=== PATIENT | female | born 1935 | race Caucasian/White ===

== ENCOUNTER 2017-10-24 08:00 | Outpatient (CLI) | payer MEDICARE, OTHER | END 2017-10-24 08:01 | disposition home or self-care (01) | LOC: BICMAMMO 08:00 | PROVIDERS: ATTEND Family Medicine | DX: Z13.820 Encounter for screening for osteoporosis (principal); M85.88 Other specified disorders of bone density and structure, other site; Z78.0 Asymptomatic menopausal state | CPT/HCPCS: 77080 ==

== ENCOUNTER 2017-11-09 09:17 | Emergency (ER) | payer MEDICARE, OTHER ==
[2017-11-09 10:00] LABS: Bilirubin Negative (Negative); Blood, Urine Negative (Negative); Glucose, Urine (Dipstick) Negative (Negative); Ketone, Urine Negative (Negative); Nitrite Negative (Negative); Protein, Urine (Dipstick) Negative (Neg-Trace); Urobilinogen 0.2 mg/dL (0.2-1.0)
[2017-11-09 10:01] LABS: #Eosinphils 0.1 thou/uL (0.0-0.7); #Lymphocytes 1.2 thou/uL (1.20-3.40); #Monocytes 0.6 thou/uL (0.11-0.59); #Neutrophils 8.9 thou/uL (1.40-6.50); %Basophils 0.2 % (0.0-1.0); %Eosinophils 0.7 % (0.0-10.0); %Lymphocytes 10.8 % (21.0-51.0); %Monocytes 5.7 % (0.0-10.0); Mean Platelet Volume 10.6 fL (7.4-10.4); Red Blood Cell (RBC) Count 4.13 mill/uL (4.20-5.40); White Blood Cell (WBC) Count 10.8 thou/uL (4.8-10.8)
[2017-11-09 10:21] LABS: ALT (SGPT) 22 U/L (8-55); AST (SGOT) 23 U/L (5-34); Alkaline Phosphatase 122 U/L (40-150); Anion Gap 12 mmol/L (10-20); BUN (Urea Nitrogen) 23 mg/dL (9.8-20.1); Bilirubin, Total 0.5 mg/dL (0.2-1.2); Calc. Creatinine Clearance 0 mL/min (70-130); Calcium 9.9 mg/dL (7.8-10.44); Carbon Dioxide 28 mmol/L (23-31); Chloride 103 mmol/L (98-107); Estimated GFR-MDRD 72; Globulin 3.2 g/dL (2.4-3.5)
--- NOTE | 2017-11-09 10:21 | RAD ---
RADIOGRAPH CHEST 1 VIEW: HISTORY: An 81-year-old female with cough. FINDINGS: The thoracic aorta is tortuous and ectatic. There is no evidence of air space density, pneumothorax, or pulmonary edema. The lateral costophrenic angles are sharp. IMPRESSION: 1) No acute pulmonary findings. 2) Ectasia of thoracic aorta. alberta [] POS: [facility]
[2017-11-09 10:25] LABS: Troponin I 0.018 ng/mL (< 0.028)
--- NOTE | 2017-11-09 10:27 | RAD ---
THREE VIEWS LUMBAR SPINE: History: Weakness. Back pain. History of fall. Technique: AP, lateral, and coned down views of the lumbar spine are obtained. FINDINGS: Images demonstrate atherosclerotic calcification of the abdominal aorta. There is severe multilevel d egenerative changes with anterior and posterior osteophytes in the mid and lower lumbar spine. There is mild dextroscoliosis seen. No evidence of acute lumbar spine fracture is seen. No evidence of ante ro or retrolisthesis is seen. No evidence of subluxation seen. IMPRESSION: Multilevel lumbar degenerative changes without evidence of acute lumbar spine pathology. POS: [facility]
--- NOTE | 2017-11-09 10:28 | RAD ---
AP VIEW PELVIS: HISTORY: Weakness, pain. FINDINGS: AP view pelvis was obtained. The pelvis is unremarkable. No evidence of pelvic fracture, subluxatio ns, or bony lesions seen. Lower lumbar disk degenerative changes are seen. IMPRESSION: No evidence of acute pelvic pathology is seen. POS: [facility]
[2017-11-09] MEDS ORDERED: traMADol HCl 50 MG TAB ONE (11:11)
== END 2017-11-09 11:58 | disposition home or self-care (01) ==
LOC: ERS 09:17
DX: M54.5 Low back pain (principal); J40 Bronchitis, not specified as acute or chronic; E78.5 Hyperlipidemia, unspecified; I10 Essential (primary) hypertension; M06.9 Rheumatoid arthritis, unspecified
CPT/HCPCS: 51701; 71010; 72100; 72170; 80053; 81003; 82553; 84484; 85025; 93005; 94640; 96360; A4353; J7620

== ENCOUNTER 2017-11-13 08:55 | Emergency (ER) | payer MEDICARE, OTHER ==
[2017-11-13 11:29] LABS: #Eosinphils 0.1 thou/uL (0.0-0.7); #Lymphocytes 0.8 thou/uL (1.20-3.40); #Monocytes 0.5 thou/uL (0.11-0.59); #Neutrophils 7.5 thou/uL (1.40-6.50); %Basophils 0.2 % (0.0-1.0); %Lymphocytes 9.1 % (21.0-51.0); %Monocytes 5.4 % (0.0-10.0); Hematocrit 37.7 % (36.0-47.0); Red Blood Cell (RBC) Count 3.97 mill/uL (4.20-5.40)
[2017-11-13 11:31] LABS: Bilirubin Negative (Negative); Blood, Urine Negative (Negative); Glucose, Urine (Dipstick) Negative (Negative); Ketone, Urine Negative (Negative); Nitrite Negative (Negative); Protein, Urine (Dipstick) Negative (Neg-Trace); Urobilinogen 0.2 mg/dL (0.2-1.0)
[2017-11-13] MEDS ORDERED: Lorazepam 2 MG/ML VIAL ONE (11:40)
[2017-11-13] MEDS ORDERED: Ondansetron HCl/PF 4 MG/2 ML Vial ONE (11:40)
[2017-11-13] MEDS ORDERED: Morphine 4 MG/ML VIAL ONE (11:40)
[2017-11-13 11:43] LABS: ALT (SGPT) 19 U/L (8-55); AST (SGOT) 20 U/L (5-34); Alkaline Phosphatase 133 U/L (40-150); Anion Gap 14 mmol/L (10-20); BUN (Urea Nitrogen) 15 mg/dL (9.8-20.1); Bilirubin, Total 0.7 mg/dL (0.2-1.2); Calc. Creatinine Clearance 0 mL/min (70-130); Calcium 9.7 mg/dL (7.8-10.44); Carbon Dioxide 25 mmol/L (23-31); Chloride 101 mmol/L (98-107); Estimated GFR-MDRD 68; Globulin 3.3 g/dL (2.4-3.5)
--- NOTE | 2017-11-13 12:22 | CT ---
CT LUMBAR SPINE WITHOUT CONTRAST: Date: 11/13/17 HISTORY: Pain. COMPARISON: Lumbar spine radiographs of 11/09/17. FINDINGS: Visualized lung bases are clear. No hydronephrosis. Extensive vascular calcifications of the aorta without aneurysmal dilatation. No retroperitoneal johnathan opathy. Diverticular disease sigmoid colon. Paraspinal muscles with mild atrophy. There are old right 12th rib head and neck fractures. No acute fracture is appreciated. Levels are as follows: T12-L1: Mild degenerative disc space height loss. Circumferential disc bulge. No significant neural foraminal or spinal canal narrowing. L1-2: Moderate degenerative disc space height loss. Circumferential disc bulge. Spinal canal is not narrowe d. Mild ligamentum flavum hypertrophy. Only mild neural foraminal narrowing. L2-3: Moderate degenerative disc space height loss. Circumferential disc bulge, as well as posterior disc o steophyte complex. Moderate facet arthrosis. Ligamentum flavum hypertrophy. Spinal canal measures 9.0 mm. Hypertrophic osteophytes of the facets contribute to a majority of the moderate bilateral neural foraminal narrowing. There is effacement of the exiting L2 nerve root. L3-4: Posterior disc osteophyte complex. Moderate to severe degenerative disc space height loss. There is a lso hypertrophic degenerative disease of the facets. There is moderate to severe bilateral neural for aminal narrowing with abutment of the exiting and traversing nerve roots. The spinal canal is narrowe d to approximately 5.0 mm. L4-5: Severe posterior degenerative disc space height loss. Ligamentum flavum hypertrophy. Moderate to beti re facet arthropathy. Spinal canal is narrowed to 3.0 mm. There is moderate left and moderate to beti re right-sided neural foraminal narrowing. L5-S1: Posterior disc osteophyte complex and circumferential disc bulge. Moderate facet arthropathy. The the kaley sac is narrowed to approximately 4.0 mm. There is moderate bilateral neural foraminal narrowing w ith abutment of the exiting and traversing nerve roots. IMPRESSION: Multilevel moderate to severe spondylosis changes. There is abutment of the exiting and traversing ne rve roots at multiple levels, as well as spinal canal narrowing, less severe at L3-4 and L4-5 to appr oximately 4.0 mm. POS: [facility]
== END 2017-11-13 13:36 | disposition home or self-care (01) ==
LOC: ERS 08:55
DX: M51.26 Other intervertebral disc displacement, lumbar region (principal); I10 Essential (primary) hypertension; E78.5 Hyperlipidemia, unspecified; M06.9 Rheumatoid arthritis, unspecified
CPT/HCPCS: 72131; 80053; 81003; 83690; 85025; 85652; 86140; 96374; 96375; J2060; J2270; J2405

== ENCOUNTER 2018-01-01 00:15 | Emergency (ER) | payer MEDICARE, OTHER ==
[2018-01-01 01:02] LABS: #Eosinphils 0.1 thou/uL (0.0-0.7); #Monocytes 0.7 thou/uL (0.11-0.59); #Neutrophils 4.8 thou/uL (1.40-6.50); %Basophils 0.4 % (0.0-1.0); %Eosinophils 0.7 % (0.0-10.0); %Lymphocytes 26.3 % (21.0-51.0); %Monocytes 9.4 % (0.0-10.0); %Neutrophils 63.2 % (42.0-75.0); Hemoglobin 12.4 g/dL (12.0-16.0); Mean Corpuscular HGB CONC 32.6 g/dL (32.0-36.0); Mean Corpuscular Hemoglobin 31.4 pg (27.0-31.0); Mean Corpuscular Volume 96.5 fl (81.0-99.0); Mean Platelet Volume 10.1 fL (7.4-10.4); Platelet Count 253 thou/uL (130-400); RBC Distribution Width 14.3 % (11.5-14.5); Red Blood Cell (RBC) Count 3.96 mill/uL (4.20-5.40); White Blood Cell (WBC) Count 7.6 thou/uL (4.8-10.8)
[2018-01-01 01:23] LABS: ALT (SGPT) 70 U/L (8-55); AST (SGOT) 51 U/L (5-34); Albumin 4.2 g/dL (3.4-4.8); Alkaline Phosphatase 148 U/L (40-150); Anion Gap 11 mmol/L (10-20); BUN (Urea Nitrogen) 18 mg/dL (9.8-20.1); Bilirubin, Total 0.3 mg/dL (0.2-1.2); Calc. Creatinine Clearance 0 mL/min (70-130); Calcium 10.1 mg/dL (7.8-10.44); Carbon Dioxide 31 mmol/L (23-31); Chloride 103 mmol/L (98-107); Estimated GFR-MDRD 76; Glucose 108 mg/dL (83-110); Potassium 3.9 mmol/L (3.5-5.1); Protein, Total 7.2 g/dL (6.0-8.3); Sodium 141 mmol/L (136-145)
[2018-01-01 02:00] LABS: Bilirubin Negative (Negative); Blood, Urine Negative (Negative); Clarity CLEAR (Clear); Glucose, Urine (Dipstick) Negative (Negative); Leukocyte Negative (Negative); Nitrite Negative (Negative); Protein, Urine (Dipstick) Negative (Neg-Trace); Specific Gravity, Urine 1.006 (1.002-1.036); Urobilinogen 0.2 mg/dL (0.2-1.0)
--- NOTE | 2018-01-01 07:44 | RAD ---
RADIOGRAPH PELVIS 1 VIEW: Date: 01/01/18 Time: 0140 hours HISTORY: 82-year-old female status post acute pelvic trauma from fall. FINDINGS: No fracture is identified. However, the osteopenia and overlying bowel gas could obscure a fracture, especially of the sacrum. There are high grade degenerative changes in the lower lumbar spine. No hip dislocation. No interval change compared to 11/09/17. IMPRESSION: 1. No fracture identified. 2. Lower lumbar spondylosis. 3. If patient's symptoms do not improve in the next several days, then the most sensitive modality t o identify occult fractures, such as sacral insufficiency fractures, would be a noncontrast MRI. POS: [facility]
--- NOTE | 2018-01-01 08:21 | CT ---
PRELIMINARY REPORT/[facility]/EMERGENCY AFTER HOURS PROCEDURE: EXAM: CT Head Without Intravenous Contrast CLINICAL HISTORY: 82 years old, female; Injury or trauma; Fall; Initial encounter; Abrasion; Head, generalized; Patient HX: 82f presents to the ed for evaluation of a fall backwards from standing and hitting the back of her head. Is not sure why she fell. reports she uses a walker and has an unsteady gait which is her baseline. Reports extensive arthritis. Denies dizziness. TECHNIQUE: Axial computed tomography images of the head/brain without intravenous contrast. COMPARISON: No relevant prior studies available. FINDINGS: Brain: Moderate volume loss No hemorrhage. Mild white matter disease. No edema. Ventricles: Unremarkable. No ventriculomegaly. Bones/joints: Unremarkable. No acute fracture. Soft tissues: Occipital scalp swelling Sinuses: Unremarkable as visualized. No acute sinusitis. Mastoid air cells: Unremarkable as visualized. No mastoid effusion. IMPRESSION: No intracranial hemorrhage.Please see discussion above. Thank you for allowing us to participate in the care of your patient. Dictated and Authenticated by: Ventura Welch MD 01/01/2018 2:14 AM Central Time ([place] & [place]) FINAL REPORT BY DR. LOPES EMERGENCY AFTER HOURS STUDY CT BRAIN NONCONTRAST: HISTORY: 82-year-old female status post acute head trauma from fall. FINDINGS: There is no midline shift or any other mass effect. There is no evidence of acute intracranial hemor rhage, large cortical infarct, obstructive hydrocephalus, or extraaxial fluid collection. The calvar ium is intact. There is diffuse parenchymal volume loss. There are low attenuation areas in the whi te matter. These are nonspecific, but in a patient of this age, they are probably chronic ischemic w jeffy matter changes due to microvascular atherosclerosis. There is a posterior scalp hematoma. This r eport agrees with the preliminary report by [facility]. IMPRESSION: 1. No acute intracranial findings. 2. Involutional changes and chronic ischemic white matter changes. 3. Acute, traumatic posterior scalp hematoma. jn [] POS: OFF
--- NOTE | 2018-01-01 08:23 | CT ---
PRELIMINARY REPORT/[facility]/EMERGENCY AFTER HOURS PROCEDURE: EXAM: CT Cervical Spine Without Intravenous Contrast CLINICAL HISTORY: 82 years old, female; Injury or trauma; Fall; Initial encounter; Abrasion; Patient HX: 82f presents t o the ed for evaluation of a fall backwards from standing and hitting the back of her head. Is not nielsen re why she fell. reports she uses a walker and has an unsteady gait which is her baseline. Re ports extensive arthritis. Denies dizziness. TECHNIQUE: Axial computed tomography images of the cervical spine without intravenous contrast. Coronal and sagittal reformatted images were created and reviewed. COMPARISON: No relevant prior studies available. FINDINGS: Vertebrae: Loss of vertebral body height, presumed degenerative. Anterolisthesis of C3 on C4 is presu med degenerative No acute fracture. Discs/spinal canal/neural foramina: No acute findings. No significant spinal canal stenosis. Multilevel foraminal stenosis observed Soft tissues: Unremarkable. Lung apices: Unremarkable as visualized. IMPRESSION: No definite acute cervical fracture noted Thank you for allowing us to participate in the care of your patient. Dictated and Authenticated by: Ventura Welch MD 01/01/2018 2:13 AM Central Time ([place] & [place]) FINAL REPORT EMERGENCY AFTER HOURS STUDY: CT CERVICAL SPINE NONCONTRAST: HISTORY: An 82-year-old female status post acute cervical trauma from fall. FINDINGS: There are no jumped or perched facets. There is no evidence of acute fracture. The vertebral body h eights are maintained. There is no prevertebral soft tissue swelling. There are degenerative disc c hanges and facet osteoarthrosis, including chronic subluxations. Agree with preliminary report by [facility]. IMPRESSION: 1) Severe cervical spondylosis. 2) No evidence of acute fracture or acute traumatic subluxation. jn [] POS: OFF
== END 2018-01-01 02:50 | disposition home or self-care (01) ==
LOC: ERS 00:15
DX: S00.03XA Contusion of scalp, initial encounter (principal); E78.5 Hyperlipidemia, unspecified; I10 Essential (primary) hypertension; M06.9 Rheumatoid arthritis, unspecified; Z79.82 Long term (current) use of aspirin; Z79.899 Other long term (current) drug therapy; W17.89XA Other fall from one level to another, initial encounter
CPT/HCPCS: 36415; 36416; 70450; 72125; 72170; 80053; 81003; 85025; 93005

== ENCOUNTER 2019-06-28 06:39 | Inpatient (IN) | payer MEDICARE, OTHER ==
[2019-06-28 07:20] LABS: Bilirubin Negative (Negative); Blood, Urine 1+ (Negative); Clarity Turbid (Clear); Glucose, Urine (Dipstick) Normal (Negative); Leukocyte 500 Leu/uL (Negative); Nitrite 2+ (Negative); Protein, Urine (Dipstick) 50 mg/dL (Neg-Trace); Squamous Epithelial 0-3 HPF (0-3); Transitional Epithelial 0-3 HPF (None Seen); Urobilinogen Normal mg/dL (Less than 2); WBC/HPF Greater than 50 HPF (0-3)
[2019-06-28 07:37] LABS: #Lymphocytes 0.4 thou/uL (1.20-3.40); #Monocytes 0.4 thou/uL (0.11-0.59); #Neutrophils 7.8 thou/uL (1.40-6.50); %Basophils 0.1 % (0.0-1.0); %Eosinophils 0.3 % (0.0-10.0); %Lymphocytes 4.8 % (21.0-51.0); %Monocytes 4.6 % (0.0-10.0); %Neutrophils 90.2 % (42.0-75.0); Hemoglobin 11.9 g/dL (12.0-16.0); Mean Corpuscular HGB CONC 33.7 g/dL (32.0-36.0); Mean Corpuscular Hemoglobin 31.6 pg (27.0-31.0); Mean Corpuscular Volume 93.7 fL (78.0-98.0); Mean Platelet Volume 12.4 fL (7.4-10.4); Platelet Count 135 thou/uL (130-400); RBC Distribution Width 12.1 % (11.5-14.5); Red Blood Cell (RBC) Count 3.76 mill/uL (4.20-5.40); White Blood Cell (WBC) Count 8.7 thou/uL (4.8-10.8)
[2019-06-28] MEDS ORDERED: Acetaminophen 500 MG TAB ONE (07:37)
[2019-06-28 07:38] LABS: Bacteria/HPF 3+ HPF (None Seen)
[2019-06-28 07:47] LABS: ALT (SGPT) 9 U/L (8-55); AST (SGOT) 25 U/L (5-34); Albumin 4.1 g/dL (3.4-4.8); Alkaline Phosphatase 80 U/L (40-150); Anion Gap 11 mmol/L (10-20); BUN (Urea Nitrogen) 23 mg/dL (9.8-20.1); Bilirubin, Total 0.6 mg/dL (0.2-1.2); Calc. Creatinine Clearance 0 mL/min (70-130); Calcium 10.3 mg/dL (7.8-10.44); Carbon Dioxide 28 mmol/L (23-31); Chloride 102 mmol/L (98-107); Estimated GFR-MDRD 62; Glucose 109 mg/dL (83-110); Potassium 3.7 mmol/L (3.5-5.1); Protein, Total 7.1 g/dL (6.0-8.3); Sodium 137 mmol/L (136-145)
--- NOTE | 2019-06-28 08:33 | RAD ---
CHEST 1 VIEW: HISTORY: Cough and fever. Chest pain. COMPARISON: 11/09/2017. FINDINGS: Cardiac silhouette is magnified by projection. Pulmonary vasculature is unremarkable. Mediastinum is midline with aortic calcification. No lobar consolidation or evidence of pneumothorax. Cardiac m onitor leads overlie the chest. IMPRESSION: 1. Atherosclerosis. 2. No active cardiopulmonary abnormalities are otherwise demonstrated. POS: [facility]
[2019-06-28] MEDS ORDERED: cefTRIAXone\\ROCEPHIN 1 GM VIAL ONE (09:13)
[2019-06-28] MEDS ORDERED: Gentamicin 80 MG/2 ML VIAL ONE (09:13)
--- NOTE | 2019-06-28 09:28 | CT ---
CT of abdomen and pelvis: 06/28/2019 COMPARISON: None HISTORY: Abdominal pain for 2 weeks TECHNIQUE: Axial CT imaging at 5 mm intervals from lung bases through pubic symphysis without contras t. Coronal reformatted imaging obtained. FINDINGS: Lack of contrast media limits assessment of the viscera, bowel, vascular structures, and fo r lymphadenopathy. Imaged lung bases are unremarkable. No free intraperitoneal air. Liver, spleen, gallbladder, pancreas , adrenal glands, and kidneys are grossly unremarkable. No nephrolithiasis or hydronephrosis is seen on either side. Limited assessment of the bowel demonstrates no evidence for obstruction. Bowel is not well assessed on this exam. There is extensive atherosclerotic calcification of the abdominal aorta and its branches. Review of the osseous structures demonstrates cortical irregularity involving the anterior aspect of the sacrum bilaterally with areas of increased sclerosis suggesting age indeterminant bilateral sacral insufficiency fractures. There are degenerative changes involving bilateral hips. Multilevel degenerative change noted within the lumbar spine with multilevel disc space narrowing, de generative endplate change, osteophyte formation, and facet hypertrophy. IMPRESSION: No nephrolithiasis or evidence of obstructive uropathy. Multiple incidental findings as d escribed above..
[2019-06-28] MEDS ORDERED: Gentamicin Sulfate 260 MG in Sodium Chloride 0.9% 100 ML IVPB SCH (09:45)
[2019-06-28] MEDS ORDERED: Vancomycin HCl 750 MG in Sodium Chloride 0.9% 250 ML 250 ML IVPB SCH (09:45)
[2019-06-28 11:04] VITALS: BMI 21.2
--- NOTE | 2019-06-28 16:12 | HP ---
PRIMARY PHYSICAL TESTING SUPERVISOR: Dr. Ricco Penn. PRIMARY UROLOGIST: Dr. Justin Rodney. CHIEF COMPLAINT: Altered mentation. HISTORY OF PRESENT ILLNESS: The patient is an 83-year-old female, who was brought into the emergency room by her with altered mentation. The altered mentation has been ongoing for more than 24 hours. The mentation got worse today, for which she was brought to the emergency room. She was putting her clothes on wrong per . She also had a fall yesterday without significant injuries. No fever or chills reported. The patient had mild abdominal discomfort around the periumbilical area that has been ongoing for last 2 weeks or so. She also had some spasms prior to urination. She had mild urinary frequency as well. also noticed intermittent chills. There is no recent UTI reported. In the emergency room, her initial vital signs showed temperature 101.6, respirations of 18, pulse rate of 85, blood pressure of 133/54 with O2 saturation of 94% on room air on room air. She received vancomycin, gentamicin, ceftriaxone, Tylenol with IV fluids in the emergency room. PAST MEDICAL HISTORY: 1. Hypertension. 2. Hyperlipidemia. 3. Postherpetic neuralgia. 4. Degenerative joint disease. 5. Cardiac murmur. 6. Chronic low back pain. PAST SURGICAL HISTORY: 1. Skin cancer removal. 2. 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 3. EGD. ALLERGIES: NO KNOWN DRUG ALLERGIES. CURRENT HOME MEDICATIONS: 1. Aspirin 81 mg daily. 2. Calcium with vitamin D daily. 3. Cardizem extended release 240 mg q.h.s. 4. Doxazosin 2 mg q.h.s. 5. Hydrochlorothiazide 12.5 mg daily. 6. MiraLAX 17 g daily. 7. Simvastatin 40 mg q.h.s. 8. Tramadol as needed. 9. Alendronate 70 mg every 7 days. 10. Tylenol as needed. SOCIAL HISTORY: The patient currently lives at home with her . She is independent of activities of daily living. She is full code and makes her own decision with the help of her and the daughter. FAMILY HISTORY: Negative for inheritable disease. Father had MN. Mother had stroke. REVIEW OF SYSTEMS: Limited due to current mentation. PHYSICAL EXAMINATION: VITAL SIGNS: As discussed above. GENERAL: An 83-year-old female with altered mentation. HEENT: Head, atraumatic and normocephalic. Sclerae anicteric. Moist mucous membranes. No oral lesion. NECK: Supple. No JVD appreciated. No carotid bruit. LUNGS: Clear to auscultation bilaterally. No wheezing, rales, or rhonchi. HEART: S1 and S2 present. 3/6 systolic ejection murmur over the aortic area. No rubs or gallops. ABDOMEN: Soft, mild generalized tenderness, mainly over the suprapubic area. No rebound or guarding. No costovertebral angle tenderness. EXTREMITIES: No edema or calf tenderness. NEUROLOGY AND PSYCHIATRY: Limited due to altered mentation. However, the patient is easily arousable and follows commands. She knows that she is in the hospital. She is alert, awake, and oriented x3. She is, however, somnolent. SKIN: Warm and dry. LYMPH NODES: No palpable lymph nodes in the neck. PERIPHERAL VASCULAR: Radial pulses palpable bilaterally. MUSCULOSKELETAL: No joint swelling or tenderness. LABORATORY FINDINGS: CBC showed WBC 8.7, hemoglobin 11.9, hematocrit 35.3, and platelets 135. Chemistry showed sodium 137, potassium 3.7, chloride 102, bicarb 28, BUN 23, creatinine 0.87. Lactic acid 1.2. Urinalysis showed greater than 50 wbc's with 3+ bacteria. IMAGING STUDIES: Chest x-ray by my review was negative for infiltrate. CT scan of the abdomen and pelvis noncontrast by my review was negative for obstructive uropathy. Blood cultures and urine cultures have been sent. IMPRESSION: 1. Toxic metabolic encephalopathy secondary to urinary tract infection. 2. Dehydration/prerenal azotemia. 3. Chronic kidney disease, stage 2. 4. Hypertension. 5. Hyperlipidemia. 6. Chronic systolic murmur, which has been evaluated by Cardiology in the past. 7. Chronic pain syndrome. PLAN: The patient will be monitored on the medical floor. We will continue empiric antibiotics. We will await urine cultures. IV hydration. PT/OT evaluation. We will check postvoid residual. Recheck labs in a.m. Continue doxazosin. Resume hydrochlorothiazide in 1 to 2 days. Resume low-dose aspirin along with tramadol as needed. Continue Cardizem CD. Plan was discussed with the patient and the family at the bedside. They stated understanding. Job ID: [id number]
[2019-06-28] MEDS ORDERED: Calcium Carbonate 500 MG ChewTAB PO PRN (16:42)
[2019-06-28] MEDS ORDERED: Ondansetron PF 4 MG/2 ML Vial IVP PRN (16:42)
[2019-06-28] MEDS ORDERED: Senokot S 8.6-50 MG TAB PO PRN (16:42)
[2019-06-28] MEDS ORDERED: Ondansetron ODT 4 MG TAB PO PRN (16:42)
[2019-06-28] MEDS ORDERED: Acetaminophen 325 MG TAB PO PRN (16:42)
[2019-06-28] MEDS ORDERED: traMADol HCl 50 MG TAB PO PRN (16:44)
[2019-06-28] MEDS: Sodium Chloride 0.9% 1,000 ML IV SCH (16:53)
[2019-06-28] MEDS: Doxazosin 2 MG TAB PO SCH (21:38)
[2019-06-28] MEDS: Atorvastatin Calcium 20 MG TAB PO SCH (21:38)
[2019-06-29 05:54] LABS: #Eosinphils 0.2 thou/uL (0.0-0.7); #Lymphocytes 0.9 thou/uL (1.20-3.40); #Monocytes 0.9 thou/uL (0.11-0.59); %Basophils 0.3 % (0.0-1.0); %Eosinophils 2.3 % (0.0-10.0); %Lymphocytes 13.1 % (21.0-51.0); %Monocytes 12.6 % (0.0-10.0); %Neutrophils 71.7 % (42.0-75.0); Hemoglobin 9.8 g/dL (12.0-16.0); Mean Corpuscular HGB CONC 33.6 g/dL (32.0-36.0); Mean Corpuscular Hemoglobin 31.8 pg (27.0-31.0); Mean Corpuscular Volume 94.8 fL (78.0-98.0); Mean Platelet Volume 12.5 fL (7.4-10.4); Platelet Count 110 thou/uL (130-400); RBC Distribution Width 12.3 % (11.5-14.5); Red Blood Cell (RBC) Count 3.07 mill/uL (4.20-5.40); White Blood Cell (WBC) Count 6.9 thou/uL (4.8-10.8)
[2019-06-29 06:15] LABS: ALT (SGPT) 10 U/L (8-55); AST (SGOT) 21 U/L (5-34); Albumin 3.1 g/dL (3.4-4.8); Alkaline Phosphatase 57 U/L (40-150); Anion Gap 9 mmol/L (10-20); BUN (Urea Nitrogen) 14 mg/dL (9.8-20.1); Bilirubin, Total 0.3 mg/dL (0.2-1.2); Calc. Creatinine Clearance 47 mL/min (70-130); Calcium 8.5 mg/dL (7.8-10.44); Carbon Dioxide 23 mmol/L (23-31); Chloride 107 mmol/L (98-107); Estimated GFR-MDRD 80; Globulin 2.2 g/dL (2.4-3.5); Glucose 96 mg/dL (83-110); Magnesium 1.9 mg/dL (1.6-2.6); Potassium 3.3 mmol/L (3.5-5.1); Protein, Total 5.3 g/dL (6.0-8.3); Sodium 136 mmol/L (136-145)
[2019-06-29] MEDS: Sodium Chloride 0.9% 1,000 ML IV SCH ×2 (07:31→17:51)
[2019-06-29] MEDS: Aspirin 81 mg Enteric Coated Tablet PO SCH (07:57)
[2019-06-29] MEDS: Polyethylene Glycol 3350 17 GM Packet PO SCH (07:57)
[2019-06-29] MEDS ORDERED: K-Phos Neutral 250 MG TAB PO SCH (08:30)
[2019-06-29] MEDS ORDERED: Enoxaparin Sodium 30 MG/0.3 ML SYRINGE SC SCH (09:00)
[2019-06-29] MEDS ORDERED: cefTRIAXone\\ROCEPHIN 1 GM in Sodium Chloride 0.9% 100 ML IVPB SCH (09:00)
--- NOTE | 2019-06-29 11:19 | PDOC.HOSPP ---
- Subjective Encounter Date: 06/29/19 Encounter Time: 10:30 Subjective: Patient seen and examined for Sepsis. Mentation improving. Feels gen weak. Ambulated short distance with walking program. No new complaints. No overnight events - Objective Vital Signs & Weight: Vital Signs (12 hours) Temp Pulse Resp BP Pulse Ox 06/29/19 08:00 96 06/29/19 07:57 62 06/29/19 05:27 97.8 F 62 18 134/62 96 06/29/19 00:00 98.9 F 61 16 120/51 L 96 Weight Weight 112 lb 10.499 oz I&O: 06/28/19 06/29/19 06/30/19 06:59 06:59 06:59 Intake Total 240 Balance 240 Result Diagrams: 06/29/19 05:07 06/29/19 05:07 Additional Labs: Microbiology 06/28/19 07:09 Venous blood - Left Arm Blood Culture - Preliminary Escherichia coli 06/28/19 07:03 Venous blood - Right Arm Blood Culture - Preliminary Presumptive Escherichia coli 06/28/19 06:59 Urine Straight Catheter Urine Culture - Preliminary Presumptive Kleb/Enterobacter Laboratory Tests 06/29/19 05:07 Phosphorus 2.0 L ROS - Review of Systems Respiratory: denies: cough, dry, shortness of breath, hemoptysis, SOB with excertion, pleuritic pain, sputum, wheezing, other Cardiovascular: denies: chest pain, palpitations, orthopnea, paroxysmal noc. dyspnea, edema, light headedness, other Gastrointestinal: denies: nausea, vomitting, abdominal pain, diarrhea, constipation, melena, hematochezia, other - Medication Medications: Active Medications Generic Name Dose Route Start Last Admin Trade Name Freq PRN Reason Stop Dose Admin Aspirin 81 mg 06/29/19 09:00 06/29/19 07:57 Ecotrin PO 81 mg DAILY ANNEMARIE Administration Atorvastatin Calcium 20 mg 06/28/19 21:00 06/28/19 21:38 Lipitor PO 20 mg HS ANNEMARIE Administration Diltiazem HCl 120 mg 06/28/19 21:00 06/29/19 07:57 Cardizem Cd PO 120 mg BID ANNEMARIE Administration Doxazosin Mesylate 1 mg 06/28/19 21:00 06/28/19 21:38 Cardura PO 1 mg HS ANNEMARIE Administration Enoxaparin Sodium 30 mg 06/29/19 09:00 06/29/19 07:57 Lovenox SC 30 mg 0900 ANNEMARIE Administration Sodium Chloride 1,000 mls @ 75 mls/hr 06/28/19 16:45 06/29/19 07:31 Normal Saline 0.9% IV Not Given .[id number] ANNEMARIE Polyethylene Glycol 17 gm 06/29/19 09:00 06/29/19 07:57 Miralax PO 17 gm DAILY ANNEMARIE Administration - Exam NAD Neck: supple, no JVD Heart: RRR, no gallops, no rubs, murmur present Respiratory: CTAB, no wheezes, no rales, no ronchi Gastrointestinal: soft, non-tender, non-distended, no guarding, no rigidity Extremities: no cyanosis, no clubbing, no edema Skin: normal turgor, no lesions, no rashes Neurological: normal sensation to touch, no weakness, no focal deficits, no new deficit Musculoskeletal: normal tone Psychiatric: normal affect, A&O x 3 Hosp A/P - Plan DVT proph w/lovenox IMPRESSION: 1. Toxic metabolic encephalopathy/Sepsis with acute organ dysfunction secondary to urinary tract infection. 2. E coli bacteremia 3. Hypokalemia/Hypophosphatemia 4. Hypertension. 5. Hyperlipidemia. 6. Dehydration/prerenal azotemia/Chronic kidney disease, stage 2. 7. Chronic pain syndrome. 8. Chronic systolic murmur, which has been evaluated by Cardiology in the past. PLAN: Increase Ceftriaxone to 2 gm daily Cont IVF Replace Phosphorus and Potassium Cont PO Cardizem/ASA and other meds as above. Await sensitivities Post void ok
[2019-06-29] MEDS: K-Phos Neutral 250 MG TAB PO SCH ×2 (12:41→17:48)
[2019-06-29] MEDS: Doxazosin 2 MG TAB PO SCH (20:04)
[2019-06-29] MEDS: Atorvastatin Calcium 20 MG TAB PO SCH (20:05)
[2019-06-30] MEDS: Sodium Chloride 0.9% 1,000 ML IV SCH (05:31)
[2019-06-30] MEDS: cefTRIAXone\\ROCEPHIN 2 GM in Sodium Chloride 0.9% 100 ML IVPB SCH (08:03)
[2019-06-30] MEDS: K-Phos Neutral 250 MG TAB PO SCH ×3 (08:04→16:31)
[2019-06-30] MEDS: Aspirin 81 mg Enteric Coated Tablet PO SCH (08:04)
[2019-06-30] MEDS: Enoxaparin Sodium 40 MG/0.4 ML SYRINGE SC SCH (08:05)
[2019-06-30] MEDS: Polyethylene Glycol 3350 17 GM Packet PO SCH (08:05)
--- NOTE | 2019-06-30 13:00 | PDOC.HOSPP ---
- Subjective Encounter Date: 06/30/19 Encounter Time: 12:30 Subjective: Patient seen and examined for Encephalopathy. Feels ok. Brief hallucination last night. No fever/chills. No new complaints. No overnight events - Objective Vital Signs & Weight: Vital Signs (12 hours) Temp Pulse Resp BP Pulse Ox 06/30/19 08:05 94 L 06/30/19 07:47 98.2 F 62 16 149/75 H 94 L Weight Weight 112 lb 10.499 oz I&O: 06/29/19 06/30/19 07/01/19 06:59 06:59 06:59 Intake Total 2100 Balance 2100 Result Diagrams: 06/29/19 05:07 06/29/19 05:07 Additional Labs: Microbiology 06/28/19 07:09 Venous blood - Left Arm Blood Culture - Final Escherichia coli 06/28/19 07:03 Venous blood - Right Arm Blood Culture - Final Escherichia coli 06/28/19 06:59 Urine Straight Catheter Urine Culture - Final Klebsiella pneumoniae ssp pneu Presumptive Escherichia coli ROS - Review of Systems Respiratory: denies: cough, dry, shortness of breath, hemoptysis, SOB with excertion, pleuritic pain, sputum, wheezing, other Cardiovascular: denies: chest pain, palpitations, orthopnea, paroxysmal noc. dyspnea, edema, light headedness, other Gastrointestinal: denies: nausea, vomitting, abdominal pain, diarrhea, constipation, melena, hematochezia, other - Medication Medications: Active Medications Generic Name Dose Route Start Last Admin Trade Name Freq PRN Reason Stop Dose Admin Aspirin 81 mg 06/29/19 09:00 06/30/19 08:04 Ecotrin PO 81 mg DAILY ANNEMARIE Administration Atorvastatin Calcium 20 mg 06/28/19 21:00 06/29/19 20:05 Lipitor PO 20 mg HS ANNEMARIE Administration Diltiazem HCl 120 mg 06/28/19 21:00 06/30/19 08:05 Cardizem Cd PO 120 mg BID ANNEMARIE Administration Doxazosin Mesylate 1 mg 06/28/19 21:00 06/29/19 20:04 Cardura PO 1 mg HS ANNEMARIE Administration Enoxaparin Sodium 40 mg 06/30/19 09:00 06/30/19 08:05 Lovenox SC 40 mg 0900 ANNEMARIE Administration Ceftriaxone Sodium 2 gm/ 100 mls @ 200 mls/hr 06/30/19 09:00 06/30/19 08:03 Sodium Chloride IVPB 100 mls Q24HR ANNEMARIE Administration Phosphorus 500 mg 06/29/19 12:00 06/30/19 11:21 Kphos Neutral PO 500 mg TID-WM ANNEMARIE Administration Polyethylene Glycol 17 gm 06/29/19 09:00 06/30/19 08:05 Miralax PO Not Given DAILY ANNEMARIE - Exam NAD Neck: supple, no JVD Heart: RRR, no gallops, murmur present Respiratory: CTAB, no rales Gastrointestinal: soft, non-tender, normal bowel sounds Extremities: no cyanosis, no edema Psychiatric: normal affect, A&O x 3 Hosp A/P - Plan plan discussed w/ family, DVT proph w/lovenox, DVT proph w/SCDs IMPRESSION: 1. Toxic metabolic encephalopathy/Sepsis with acute organ dysfunction secondary to E coli/Klebsiella urinary tract infection. 2. E coli bacteremia 3. Hypokalemia/Hypophosphatemia 4. Hypertension. 5. Hyperlipidemia. 6. Dehydration/prerenal azotemia/Chronic kidney disease, stage 2. 7. Chronic pain syndrome. 8. Chronic systolic murmur, which has been evaluated by Cardiology in the past. PLAN: Cont Ceftriaxone to 2 gm daily DC IVF Cont other meds as above. Post void ok
--- NOTE | 2019-06-30 14:09 | CON ---
DATE OF CONSULTATION: 06/30/2019 REASON FOR CONSULTATION: Bacteremia. HISTORY OF PRESENT ILLNESS: An 83-year-old with history of hypertension, postherpetic neuralgia, and some bladder issues in the past managed by Dr. Rodney, the family and the patient herself are not very aware of what the diagnosis specifically was and according to the , Dr. Rodney had discussed a particular procedure, but he said that he did not like to do those procedures in older folks according to . The patient reportedly goes to urinate every 2 hours approximately according to round the clock and developed some bladder spasms more recently associated with abdominal discomfort and chills, and was brought to the emergency room, her temperature was 101.6, and she did not have any other symptoms. The other vital signs were not particularly remarkable. She was not hypotensive. There is some tenderness in the periumbilical region. The remainder aspects of the examination were normal in the emergency room. Initial lab data with a white cell count 8.7, hemoglobin 11.9, platelets 135, with 90% neutrophils and chemistry was fairly unremarkable. Urinalysis with greater than 50 wbc's. Now, we have 2 sets of blood culture positive for E. coli with a very broad susceptibility profile and the urine culture with the same E. coli plus Klebsiella pneumoniae with a very broad susceptibility profile. Imaging study was done 2 days ago and it showed no evidence of significant abnormalities. No nephrolithiasis. Some sacral fractures noted. Currently, Ms. Bran is having lunch. She is feeling better. No headaches. No visual symptoms, sore throat, odynophagia, or dysphagia. Quite significant hearing impairment. No chest pain. No cough. No abdominal pain. She feels that her bladder is somewhat full. No joint symptoms. No neurological symptoms. PAST MEDICAL HISTORY: Hypertension, hyperlipidemia, postherpetic neuralgia, DJD, chronic cardiac murmur, low back pain, some bladder issue that has been evaluated by Dr. Rodney, not clear what specific diagnosis is. PAST SURGICAL HISTORY: Skin cancer removal, strabismus correction, and EGD. ALLERGIES: NONE. SOCIAL HISTORY: Former smoker, quit 20 years ago. . Lives in [place]. FAMILY HISTORY: Coronary artery disease. CURRENT MEDICATIONS: 1. Ecotrin. 2. Lipitor. 3. Tums. 4. Ceftriaxone. 5. Cardizem. 6. Cardura. 7. Tramadol. PHYSICAL EXAMINATION: VITAL SIGNS: T-max 100.2, blood pressure 140/70, pulse 62, respirations 16, and O2 saturation 94%. SKIN: No areas of skin breakdown. Peripheral IV access. She is voiding in the toilet. No lymphadenopathy. HEENT: Noncontributory. NECK: Supple. LUNGS: Symmetric. Clear breath sounds. HEART: A loud 3/6 harsh systolic murmur at the aortic area. No S3. Regular rate. ABDOMEN: Soft. Not distended or tender. : Question of bladder distention. MUSCULOSKELETAL: No joint inflammatory activity. EXTREMITIES: Pulses 1+ in dorsalis pedis. Moves all extremities equally. NEUROLOGIC: Cognitive function appears to be intact except for the hearing impairment. LABORATORY DATA: Followup CBC; white cell count 6.9 with decrease in neutrophil percentage to 71%. Chemistries not remarkable. ASSESSMENT: 1. Severe hearing impairment. 2. Chronic bladder dysfunction, likely incontinence, although urinary retention is not ruled out. 3. Invasive urinary tract infection with a very susceptible Escherichia coli. DISCUSSION: There are no structural abnormalities of significance in the CT of abdomen performed and if she has no evidence of retention in the bladder scan, then I would switch transition her to either quinolone or Bactrim, given for about approximately 2 weeks. Consider chronic suppressive therapy with low-dose Bactrim at bedtime single-strength. If there is evidence of urinary retention, then this will have to be addressed, but probably that will not be the case since the patient had already been under the care of Dr. Rodney. Job ID: [id number]
[2019-06-30] MEDS: Atorvastatin Calcium 20 MG TAB PO SCH (20:25)
[2019-06-30] MEDS: Doxazosin 2 MG TAB PO SCH (20:26)
[2019-07-01 05:54] LABS: #Eosinphils 0.2 thou/uL (0.0-0.7); #Lymphocytes 1.6 thou/uL (1.20-3.40); #Monocytes 0.8 thou/uL (0.11-0.59); #Neutrophils 2.7 thou/uL (1.40-6.50); %Basophils 0.3 % (0.0-1.0); %Eosinophils 4.7 % (0.0-10.0); %Monocytes 13.9 % (0.0-10.0); %Neutrophils 51.1 % (42.0-75.0); Hemoglobin 10.5 g/dL (12.0-16.0); Mean Corpuscular HGB CONC 33.1 g/dL (32.0-36.0); Mean Corpuscular Hemoglobin 30.8 pg (27.0-31.0); Mean Corpuscular Volume 93.1 fL (78.0-98.0); Mean Platelet Volume 11.7 fL (7.4-10.4); Platelet Count 152 thou/uL (130-400); RBC Distribution Width 12.1 % (11.5-14.5); Red Blood Cell (RBC) Count 3.41 mill/uL (4.20-5.40); White Blood Cell (WBC) Count 5.4 thou/uL (4.8-10.8)
[2019-07-01 06:10] LABS: Albumin 3.5 g/dL (3.4-4.8); Anion Gap 10 mmol/L (10-20); BUN (Urea Nitrogen) 10 mg/dL (9.8-20.1); BUN/Creatinine Ratio 14.49; Calc. Creatinine Clearance 48 mL/min (70-130); Calcium 9.2 mg/dL (7.8-10.44); Carbon Dioxide 27 mmol/L (23-31); Chloride 106 mmol/L (98-107); Estimated GFR-MDRD 81; Glucose 98 mg/dL (83-110); Magnesium 1.9 mg/dL (1.6-2.6); Phosphorus 3.5 mg/dL (2.3-4.7); Potassium 3.3 mmol/L (3.5-5.1); Sodium 140 mmol/L (136-145)
[2019-07-01] MEDS: K-Phos Neutral 250 MG TAB PO SCH ×3 (08:08→16:20)
[2019-07-01] MEDS: cefTRIAXone\\ROCEPHIN 2 GM in Sodium Chloride 0.9% 100 ML IVPB SCH (08:08)
[2019-07-01] MEDS: Enoxaparin Sodium 40 MG/0.4 ML SYRINGE SC SCH (08:08)
[2019-07-01] MEDS: Aspirin 81 mg Enteric Coated Tablet PO SCH (08:08)
[2019-07-01] MEDS: Polyethylene Glycol 3350 17 GM Packet PO SCH (08:39)
--- NOTE | 2019-07-01 18:30 | PDOC.HOSPP ---
- Subjective Encounter Date: 07/01/19 Encounter Time: 09:20 Subjective: Pt seen for followup re:bacteremia. feels well, ambulating. - Objective Vital Signs & Weight: Vital Signs (12 hours) Temp Pulse Resp BP BP Pulse Ox 07/01/19 11:41 144/61 H 07/01/19 08:16 98 07/01/19 08:07 63 151/64 H 07/01/19 08:06 97.7 F 63 16 151/64 H 97 Weight Weight 112 lb 10.499 oz I&O: 06/30/19 07/01/19 07/02/19 06:59 06:59 06:59 Intake Total 2099 1996 Balance 2099 1996 Result Diagrams: 07/01/19 05:11 07/01/19 05:11 Additional Labs: Labs and MARs reviewed by me ROS - Review of Systems Respiratory: denies: cough, shortness of breath, SOB with excertion, pleuritic pain, wheezing, other Cardiovascular: denies: chest pain, palpitations, orthopnea, paroxysmal noc. dyspnea, edema, light headedness - Medication Medications: Active Medications Generic Name Dose Route Start Last Admin Trade Name Freq PRN Reason Stop Dose Admin Aspirin 81 mg 06/29/19 09:00 07/01/19 08:08 Ecotrin PO 81 mg DAILY ANNEMARIE Administration Atorvastatin Calcium 20 mg 06/28/19 21:00 06/30/19 20:25 Lipitor PO 20 mg HS ANNEMARIE Administration Diltiazem HCl 120 mg 06/28/19 21:00 07/01/19 08:07 Cardizem Cd PO 120 mg BID ANNEMARIE Administration Doxazosin Mesylate 1 mg 06/28/19 21:00 06/30/19 20:26 Cardura PO 1 mg HS ANNEMARIE Administration Enoxaparin Sodium 40 mg 06/30/19 09:00 07/01/19 08:08 Lovenox SC 40 mg 0900 ANNEMARIE Administration Ceftriaxone Sodium 2 gm/ 100 mls @ 200 mls/hr 06/30/19 09:00 07/01/19 08:08 Sodium Chloride IVPB 100 mls Q24HR ANNEMARIE Administration Phosphorus 500 mg 06/29/19 12:00 07/01/19 16:20 Kphos Neutral PO 500 mg TID-WM ANNEMARIE Administration Polyethylene Glycol 17 gm 06/29/19 09:00 07/01/19 08:39 Miralax PO Not Given DAILY ANNEMARIE - Exam NAD, awake alert Eye: anicteric sclera ENT: normocephalic atraumatic, moist mucosa Neck: supple, no thyromegaly Heart: RRR, no rubs Respiratory: no wheezes, no rales Gastrointestinal: soft, non-tender Skin: normal turgor Musculoskeletal: normal tone, normal strength Psychiatric: normal affect, normal behavior Hosp A/P (1) Bacteremia Code(s): R78.81 - BACTEREMIA Status: Acute (2) Hypokalemia Code(s): E87.6 - HYPOKALEMIA Status: Acute (3) Dyslipidemia Code(s): E78.5 - HYPERLIPIDEMIA, UNSPECIFIED Status: Chronic (4) Toxic metabolic encephalopathy Code(s): G92 - TOXIC ENCEPHALOPATHY Status: Resolved - Plan plan discussed w/ family, continue antibiotics, PT/OT, out of bed/ambulate Continue IV ceftriaxone, switch to oral antibiotics at the time of discharge. Continue statin. Replace potassium.
[2019-07-01] MEDS ORDERED: Potassium Chloride 20 MEQ TAB PO SCH (18:45)
[2019-07-01] MEDS: Doxazosin 2 MG TAB PO SCH (20:05)
[2019-07-01] MEDS: Atorvastatin Calcium 20 MG TAB PO SCH (20:06)
[2019-07-02] MEDS: K-Phos Neutral 250 MG TAB PO SCH ×2 (08:35→11:48)
[2019-07-02] MEDS: Aspirin 81 mg Enteric Coated Tablet PO SCH (08:35)
[2019-07-02] MEDS: Enoxaparin Sodium 40 MG/0.4 ML SYRINGE SC SCH (08:36)
[2019-07-02] MEDS: cefTRIAXone\\ROCEPHIN 2 GM in Sodium Chloride 0.9% 100 ML IVPB SCH (08:37)
[2019-07-02] MEDS: Polyethylene Glycol 3350 17 GM Packet PO SCH (08:37)
[2019-07-02] MEDS ORDERED: Ciprofloxacin 500 MG TAB PO SCH (11:00)
[2019-07-02 17:27] VITALS: BP 169/68; TEMP 98.1
--- NOTE | 2019-07-02 21:48 | DIS ---
DATE OF ADMISSION: 06/28/2019 DATE OF DISCHARGE: 07/02/2019 PRIMARY CARE PROVIDER: Ricco Penn MD DISCHARGE DIAGNOSES: 1. Urinary tract infection. 2. Toxic metabolic encephalopathy secondary to urinary tract infection. 3. Dehydration. 4. Escherichia coli bacteremia. CONDITION OF PATIENT ON THE DAY OF DISCHARGE: Stable. I assessed Ms. Bran on the day of discharge. She denies any chest pain or shortness of breath. Vital signs are stable. S1 and S2 are heard, regular. Lungs are clear to auscultation bilaterally. CONSULTATIONS DURING THIS HOSPITALIZATION: Infectious Diseases, Dr. Mena. DISCHARGE MEDICATIONS: In addition to the pre-admission home medications as dictated by Dr. King in his history and physical note dated June 28, 2019, Ms. Bran is being discharged home on ciprofloxacin 500 mg 2 times a day for 14 days. HOSPITAL COURSE: Ms. Bran is a pleasant 83-year-old lady, who was admitted to [facility] on June 28, 2019, for toxic metabolic encephalopathy and urinary tract infection. Please refer to Dr. King's history and physical note dated June 28, 2019, for further details. She was treated with intravenous antibiotics. Urine culture grew Klebsiella pneumoniae that was of intermediate sensitivity to nitrofurantoin, but was otherwise sensitive to other antibiotics. It also grew presumptive escherichia coli. 2/2 blood cultures grew pansensitive escherichia coli. She was seen by Infectious Diseases Service. FOLLOWUP: The patient was advised to follow up with primary care provider in 3 to 5 days time. Her blood pressures were elevated during this hospitalization. She has been advised to resume her home medications and check her blood pressure and heart rate 3 times a day and show the readings to her primary care provider. Many thanks for allowing me to participate in your patient's care. Please feel free to contact me with any questions or concerns. DISCHARGE DESTINATION: Home. TIME SPENT: Total amount of time spent coordinating this discharge: 32 minutes. Job ID: [id number]
== END 2019-07-02 16:52 | disposition home or self-care (01) | DRG 871 ==
LOC: ERS 06:39 → T4-A 10:49
PROVIDERS: ADMIT Internal Medicine; ATTEND Internal Medicine
DX: A41.51 Sepsis due to Escherichia coli [E. coli] (principal); G92 Toxic encephalopathy; N39.0 Urinary tract infection, site not specified; B02.29 Other postherpetic nervous system involvement; E78.5 Hyperlipidemia, unspecified; M19.90 Unspecified osteoarthritis, unspecified site; E86.0 Dehydration; N18.2 Chronic kidney disease, stage 2 (mild); I12.9 Hypertensive chronic kidney disease with stage 1 through stage 4 chronic kidney disease, or unspecified chronic kidney disease; G89.4 Chronic pain syndrome; R65.20 Severe sepsis without septic shock; E87.6 Hypokalemia; E83.39 Other disorders of phosphorus metabolism; M06.9 Rheumatoid arthritis, unspecified; R32 Unspecified urinary incontinence; B96.1 Klebsiella pneumoniae [K. pneumoniae] as the cause of diseases classified elsewhere; R01.1 Cardiac murmur, unspecified; R79.89 Other specified abnormal findings of blood chemistry; H91.90 Unspecified hearing loss, unspecified ear; Z79.899 Other long term (current) drug therapy; Z79.82 Long term (current) use of aspirin
CPT/HCPCS: 36415; 51701; 71045; 74176; 80053; 80069; 81003; 81015; 83605; 83735; 84100; 85025; 87040; 87077; 87086; 87149; 87186; 96361; 96365; A4353; J0696; J1580; J1650; J3370; J3490; J7050

== ENCOUNTER 2019-08-27 11:11 | Outpatient (CLI) | payer MEDICARE, OTHER ==
--- NOTE | 2019-08-27 12:10 | RAD ---
RIGHT SHOULDER 3 VIEWS: Date: 08/27/19 HISTORY: Fall, right shoulder pain. FINDINGS/IMPRESSION: No acute fracture or dislocation is seen in the right shoulder. There is a fracture involving the rig ht 7th rib. POS: OFF
== END 2019-08-27 11:12 | disposition home or self-care (01) ==
LOC: SCSRAD 11:11
PROVIDERS: ATTEND Nurse Practitioner Family
DX: Z04.3 Encounter for examination and observation following other accident (principal); S22.31XA Fracture of one rib, right side, initial encounter for closed fracture; W19.XXXA Unspecified fall, initial encounter

== ENCOUNTER 2019-10-10 12:17 | Inpatient (IN) | payer MEDICARE, OTHER ==
--- NOTE | 2019-10-10 13:32 | RAD ---
PORTABLE CHEST 1 VIEW: Date: 10/10/19 Time: 1307 hours HISTORY: Difficulty breathing. FINDINGS/IMPRESSION: Comparison made with exam of 06/28/19. The heart size is normal. The aorta is tortuous. No lobar consolidation, pneumothoraces, or pleural e ffusions are seen. There are fractures involving the right 6th and 7th ribs. These were not seen on t he previous study of 06/28/19. The 7th rib fracture was noted on the right shoulder x-rays of 9. POS: TPC
[2019-10-10 13:35] LABS: #Eosinphils 0.1 thou/uL (0.0-0.7); #Lymphocytes 0.9 thou/uL (1.20-3.40); #Monocytes 0.7 thou/uL (0.11-0.59); #Neutrophils 7.1 thou/uL (1.40-6.50); %Basophils 0.2 % (0.0-1.0); %Eosinophils 0.6 % (0.0-10.0); %Lymphocytes 10.1 % (21.0-51.0); %Monocytes 8.1 % (0.0-10.0); Hemoglobin 11.4 g/dL (12.0-16.0); Mean Corpuscular HGB CONC 33.2 g/dL (32.0-36.0); Mean Corpuscular Volume 93.5 fL (78.0-98.0); Mean Platelet Volume 11.5 fL (7.4-10.4); Platelet Count 185 thou/uL (130-400); RBC Distribution Width 12.4 % (11.5-14.5); Red Blood Cell (RBC) Count 3.67 mill/uL (4.20-5.40); White Blood Cell (WBC) Count 8.8 thou/uL (4.8-10.8)
[2019-10-10] MEDS ORDERED: Iopamidol-370 76% 500 ML 1 ML ONE (13:42)
[2019-10-10 13:58] LABS: ALT (SGPT) 13 U/L (8-55); AST (SGOT) 23 U/L (5-34); Alkaline Phosphatase 116 U/L (40-110); Anion Gap 12 mmol/L (10-20); BUN (Urea Nitrogen) 27 mg/dL (9.8-20.1); Bilirubin, Total 0.3 mg/dL (0.2-1.2); Calc. Creatinine Clearance 0 mL/min (70-130); Calcium 9.7 mg/dL (7.8-10.44); Carbon Dioxide 27 mmol/L (23-31); Chloride 102 mmol/L (98-107); Estimated GFR-MDRD 57; Globulin 2.8 g/dL (2.4-3.5); Glucose 107 mg/dL (83-110); Lipase 22 U/L (8-78); Potassium 4.2 mmol/L (3.5-5.1); Protein, Total 6.8 g/dL (6.0-8.3); Sodium 137 mmol/L (136-145)
[2019-10-10 15:20] LABS: Bilirubin Negative (Negative); Blood, Urine Moderate (Negative); Glucose, Urine (Dipstick) Negative (Negative); Leukocyte Moderate (Negative); Nitrite Positive (Negative); Protein, Urine (Dipstick) 100 mg/dL (Neg-Trace); Urobilinogen 0.2 mg/dL (Less than 2)
[2019-10-10 15:24] LABS: Clarity Hazy (Clear)
[2019-10-10 15:26] LABS: Bacteria/HPF 4+ HPF (None Seen); RBC/HPF 0-3 HPF (0-3); Squamous Epithelial 0-3 HPF (0-3); WBC/HPF Greater Than 50 HPF (0-3)
--- NOTE | 2019-10-10 15:29 | CT ---
CT PULMONARY ANGIOGRAM WITH IV CONTRAST AND 3D POST PROCESSING: HISTORY: Dyspnea on exertion. FINDINGS: There is good contrast opacification of the pulmonary arterial vasculature without filling defects to suggest pulmonary embolism. There are vascular calcifications without evidence of thoracic aortic an eurysm or dissection. No pleural or pericardial effusions are seen. No pneumothoraces, focal areas of consolidation or lung nodules/masses are noted. There are mild dependent changes in the lung bases. There are degenerative changes in the spine. IMPRESSION: No CT evidence of pulmonary embolism. POS: TPC
[2019-10-10] MEDS ORDERED: cefTRIAXone\\ROCEPHIN 1 GM VIAL ONE (15:39)
[2019-10-10] MEDS ORDERED: Furosemide 20 MG/2 ML VIAL ONE (17:43)
[2019-10-10] MEDS ORDERED: Ondansetron ODT 4 MG TAB SL PRN (19:48)
[2019-10-10] MEDS ORDERED: HYDROcodone/Acetaminophen 5/325 mg Tablet PO PRN ×2 (19:48)
[2019-10-10] MEDS ORDERED: Acetaminophen 325 MG TAB PO PRN (19:48)
[2019-10-10] MEDS ORDERED: Ondansetron PF 4 MG/2 ML Vial IVP PRN (19:48)
[2019-10-10 22:47] VITALS: BMI 21.3
[2019-10-11] MEDS ORDERED: Ondansetron ODT 4 MG TAB PO PRN (02:34)
[2019-10-11] MEDS ORDERED: Acetaminophen 500 MG TAB PO PRN (02:34)
[2019-10-11] MEDS ORDERED: hydrALAZINE 20 MG/ML VIAL SLOW IVP PRN (02:34)
[2019-10-11] MEDS ORDERED: Ondansetron PF 4 MG/2 ML Vial IVP PRN (02:34)
[2019-10-11] MEDS ORDERED: Benzonatate 100 MG CAP PO PRN (02:34)
[2019-10-11 06:26] LABS: Anion Gap 9 mmol/L (10-20); BUN (Urea Nitrogen) 21 mg/dL (9.8-20.1); Calc. Creatinine Clearance 39 mL/min (70-130); Calcium 9.8 mg/dL (7.8-10.44); Carbon Dioxide 32 mmol/L (23-31); Chloride 103 mmol/L (98-107); Estimated GFR-MDRD 65; Glucose 101 mg/dL (83-110); Potassium 3.5 mmol/L (3.5-5.1); Sodium 140 mmol/L (136-145)
[2019-10-11 06:35] LABS: Band 6 % (5-11); Eosinophils 6 % (0-10); Hemoglobin 10.8 g/dL (12.0-16.0); Large Platelets SLIGHT; Lymphocytes 9 % (21-51); MDiff Complete? YES; Mean Corpuscular HGB CONC 32.7 g/dL (32.0-36.0); Mean Corpuscular Hemoglobin 30.4 pg (27.0-31.0); Monocytes 7 % (0-10); Neutrophil 71 % (42-75); Platelet Count 188 thou/uL (130-400); Platelet Morphology Comment Appears Adequate; RBC Distribution Width 12.3 % (11.5-14.5); Red Blood Cell (RBC) Count 3.56 mill/uL (4.20-5.40); White Blood Cell (WBC) Count 6.3 thou/uL (4.8-10.8)
[2019-10-11] MEDS: traMADol HCl 50 MG TAB PO SCH ×4 (07:49→20:32)
[2019-10-11] MEDS: Calcium Carbonate + Vit D 1 TAB PO SCH ×2 (07:49→17:36)
[2019-10-11] MEDS: Doxazosin Mesylate 1 MG TAB PO SCH (07:51)
[2019-10-11] MEDS: Hydrochlorothiazide 25 MG TAB PO SCH (07:51)
[2019-10-11] MEDS: Aspirin 81 mg Enteric Coated Tablet PO SCH (07:51)
[2019-10-11] MEDS: Famotidine 20 MG TAB PO SCH (07:52)
[2019-10-11] MEDS: Furosemide 20 MG/2 ML VIAL SLOW IVP SCH (07:52)
[2019-10-11] MEDS: Polyethylene Glycol 3350 17 GM Packet PO SCH (08:03)
--- NOTE | 2019-10-11 09:05 | HP ---
PRIMARY CARE PROVIDER: Ricco Penn MD. PRIMARY UROLOGIST: Justin Rodney MD CHIEF COMPLAINT: Shortness of breath and general weakness. HISTORY OF PRESENT ILLNESS: This is an 83-year-old female, who presented to [facility] Emergency Department complaining of approximately 48-hour history of increasing shortness of breath with associated general weakness and peripheral edema. The patient's condition worsened with exercise or activity level and relieved by nothing. The patient denied any documented fever, chills, night sweats, or family members with similar symptoms. The patient denied any travel history, recent trauma, injury, or new medication exposure. The patient does have history of recurrent urinary tract infections according to the and was recently admitted to [facility] from 06/28/2019 through 07/02/2019, for Klebsiella and E coli urinary tract infection with bacteremia. The patient was also noted with a recent urinary tract infection with Escherichia coli species on 09/19/2019. In the emergency room, the patient underwent general evaluation, receiving Rocephin 1 g IV piggyback and Lasix 20 mg IV push x1. The patient was transferred to the medical floor for further evaluation. PAST MEDICAL HISTORY: 1. Recurrent urinary tract infections. 2. Hyperlipidemia. 3. Hypertension. 4. Rheumatoid arthritis. 5. Cardiac murmur, suspected aortic stenosis with prior cardiology workup. 6. Postherpetic neuralgia. 7. Degenerative joint disease. 8. Chronic low back pain. PAST SURGICAL HISTORY: 1. Status post skin cancer removal. 2. Status post strabismus correction of the left eye. 3. Status post EGD. CURRENT MEDICATIONS: 1. Alendronate sodium 70 mg p.o. q.7 days. 2. Enteric-coated aspirin 81 mg p.o. daily. 3. Multivitamin 1 tablet p.o. b.i.d. 4. Diltiazem CD 240 mg p.o. at bedtime. 5. Cardura 1 mg p.o. daily. 6. Hydrochlorothiazide 12.5 mg p.o. daily. 7. MiraLAX 17 g p.o. daily. 8. Simvastatin 40 mg p.o. at bedtime. 9. Tramadol 50 mg p.o. q.i.d. p.r.n. ALLERGIES: NO KNOWN DRUG ALLERGIES. FAMILY HISTORY: Father with myocardial infarction and mother with CVA. SOCIAL HISTORY: The patient resides in [place], [place], with her , who accompanies her in the hospital. No current alcohol, tobacco, or illicit drug use. REVIEW OF SYSTEMS: CONSTITUTIONAL: Negative for weight loss or gain, ability to conduct usual activities. SKIN: Negative for rash, itching. EYES: Negative for double vision, pain. ENT/MOUTH: Negative for nose bleeding, neck stiffness, pain, tenderness. CARDIOVASCULAR: Negative for palpitations, dyspnea on exertion, orthopnea. RESPIRATORY: Negative for shortness of breath, wheezing, cough, hemoptysis, fever or night sweats. GASTROINTESTINAL: Negative for poor appetite, abdominal pain, heartburn, nausea, vomiting, constipation, or diarrhea. GENITOURINARY: Negative for urgency, frequency, dysuria, nocturia. MUSCULOSKELETAL: Negative for pain, swelling. NEUROLOGIC/PSYCHIATRIC: Negative for anxiety, depression. ALLERGY/IMMUNOLOGIC: Negative for skin rash, bleeding tendency. Otherwise, negative except as stated per HPI. PHYSICAL EXAMINATION: VITAL SIGNS: On admission, blood pressure 114/60, pulse 57, respiratory rate 16, temperature 97.3 degrees Fahrenheit, and O2 saturation 94% on room air. GENERAL APPEARANCE: This is an 83-year-old female, alert, responsive, in no acute distress. HEENT: Pupils are equal, round, and reactive to light and accommodation. Extraocular muscles are intact. No scleral icterus. No conjunctival injection. Nares patent. OP is clear. Oral mucosa dry. NECK: Supple. No cervical adenopathy. No thyromegaly. No carotid bruits. No JVD appreciated. Cervical spine with full active and passive range of motion. No meningeal signs noted. CHEST: Diminished breath sounds in the bases. CARDIOVASCULAR: S1 and S2 with a 3/6 systolic ejection murmur in the right upper sternal border. Consistent with prior exams. ABDOMEN: Rounded, soft, nontender, and nondistended. Bowel sounds are positive in all 4 quadrants. There is no hepatosplenomegaly. No abdominal bruits. No rebound or guarding appreciated. EXTREMITIES: Warm and dry with fair turgor. Mild edema to bilateral lower extremities. Pulses palpable distally at the dorsalis pedis, posterior tibial, and popliteal arteries bilaterally. Capillary refill less than 2 seconds. NEUROLOGIC: Cranial nerves II through XII are grossly intact. No focal or lateralizing signs appreciated. PERTINENT LABORATORY AND X-RAY FINDINGS: Sodium 137, potassium 4.2, chloride 102, CO2 of 27, BUN 27, creatinine 0.94, estimated GFR 57, glucose 107, and calcium 9.7. Alkaline phosphatase 116. Troponin I negative x1. BNP 109. Lipase 22. CBC showed a white blood cell count of 8.8, hemoglobin 11.4, hematocrit 34.3, and platelet count 185 with 81% neutrophils. D-dimer 1.42. Urinalysis; positive for ketones, blood, nitrites, and moderate leukocyte esterase with 4+ bacteria. Portable chest x-ray dated 10/10/2019, showed no acute cardiopulmonary process. Rib fractures of the right 6th and 7th ribs noted. Not previously seen on study on 06/28/2019. CT angiogram of the chest dated 10/10/2019, showed no evidence for pulmonary embolus. EKG dated 10/10/2019, by my interpretation shows a sinus mechanism with heart rates in the 60s. Normal R-wave progression noted in the precordial leads. Normal axis. No acute ST-T wave changes appreciated. ASSESSMENT AND PLAN: 1. Urinary tract infection. The patient will be admitted to the medical floor. We will continue Rocephin 1 g IV q.24 hours. Await final urine culture results. 2. Acute kidney injury on chronic kidney disease. Mild acute kidney injury when comparing previous estimated GFR trend. Avoid nephrotoxic agents and limit contrast exposure. Serial creatinine monitoring. 3. Normocytic anemia. Suspect secondary to chronic kidney disease. No current evidence to suggest acute gastrointestinal blood loss. Serial CBC monitoring. 4. Hypertension. Resume home antihypertensive regimen and monitor clinical response. 5. Dyspnea. Suspect multifactorial including urinary tract infection. We will continue general supportive management. Oxygen as needed to maintain O2 saturations greater than or equal to 90%. 6. Aortic stenosis. Suspected given distribution of cardiac murmur. Prior workup per Cardiology. No further workup recommended. 7. Prophylaxis. SCDs while in bed. Pepcid 20 mg p.o. b.i.d. PT evaluation for functional assessment. 8. Code status is full. Surrogate medical decision maker is the patient's spouse. Job ID: [id number]
[2019-10-11] MEDS ORDERED: cefTRIAXone\\ROCEPHIN 1 GM in Sodium Chloride 0.9% 100 ML IVPB SCH (15:00)
--- NOTE | 2019-10-11 15:37 | PDOC.HOSPP ---
- Subjective Encounter Date: 10/11/19 Encounter Time: 15:36 Subjective: Ms. Bran was seen today in follow-up of UTI. She does not have any complaints. - Objective Vital Signs & Weight: Vital Signs (12 hours) Temp Pulse Resp BP Pulse Ox 10/11/19 11:52 97.8 F 63 17 132/67 93 L 10/11/19 07:45 97.8 F 63 19 125/55 L 93 L 10/11/19 04:53 98.2 F 73 14 115/64 94 L Weight Weight 109 lb 4.8 oz Result Diagrams: 10/11/19 05:37 10/11/19 05:37 Hospitalist ROS - Medication Medications: Active Medications Generic Name Dose Route Start Last Admin Trade Name Freq PRN Reason Stop Dose Admin Aspirin 81 mg 10/11/19 09:00 10/11/19 07:51 Ecotrin PO 81 mg DAILY ANNEMARIE Administration Calcium/Vitamin D 1 tab 10/11/19 08:00 10/11/19 07:49 Caltrate 600 + Vit D PO 1 tab BID-WM ANNEMARIE Administration Doxazosin Mesylate 1 mg 10/11/19 09:00 10/11/19 07:51 Cardura PO 1 mg DAILY ANNEMARIE Administration Famotidine 20 mg 10/11/19 09:00 10/11/19 07:52 Pepcid PO 20 mg DAILY ANNEMARIE Administration Furosemide 20 mg 10/11/19 09:00 10/11/19 07:52 Lasix SLOW IVP 20 mg DAILY ANNEMARIE Administration Hydrochlorothiazide 12.5 mg 10/11/19 09:00 10/11/19 07:51 Hydrochlorothiazide PO 12.5 mg DAILY ANNEMARIE Administration Ceftriaxone Sodium 1 gm/ 100 mls @ 200 mls/hr 10/11/19 15:00 10/11/19 14:23 Sodium Chloride IVPB 100 mls 1500 ANNEMARIE Administration Polyethylene Glycol 17 gm 10/11/19 09:00 10/11/19 08:03 Miralax PO 17 gm DAILY ANNEMARIE Administration Tramadol HCl 50 mg 10/11/19 09:00 10/11/19 12:24 Ultram PO 50 mg QID ANNEMARIE Administration - Exam Eye: PERRL Respiratory: CTAB, no wheezes, no rales, no ronchi, normal chest expansion Gastrointestinal: soft, non-tender, non-distended, normal bowel sounds, no palpable masses, no hepatomegaly Extremities: no cyanosis, no clubbing, no edema Musculoskeletal: diffuse muscle atrophy Hosp A/P (1) UTI (urinary tract infection) Status: Acute (2) Hypertension Code(s): I10 - ESSENTIAL (PRIMARY) HYPERTENSION Status: Acute (3) DJD (degenerative joint disease) Code(s): M19.90 - UNSPECIFIED OSTEOARTHRITIS, UNSPECIFIED SITE Status: Chronic (4) Rheumatoid arthritis Code(s): M06.9 - RHEUMATOID ARTHRITIS, UNSPECIFIED Status: Chronic - Plan * UTI- urine culture is growing presumptive E. Coli * Continue Rocephin * HTN- blood pressure is stable * DJD- stable
[2019-10-11] MEDS: Atorvastatin Calcium 20 MG TAB PO SCH (20:32)
[2019-10-11] MEDS ORDERED: Simvastatin 40 MG TAB PO SCH (21:00)
[2019-10-12] MEDS: Calcium Carbonate + Vit D 1 TAB PO SCH ×2 (08:12→16:37)
[2019-10-12] MEDS: Famotidine 20 MG TAB PO SCH (08:12)
[2019-10-12] MEDS: Doxazosin Mesylate 1 MG TAB PO SCH (08:12)
[2019-10-12] MEDS: traMADol HCl 50 MG TAB PO SCH ×4 (08:12→20:09)
[2019-10-12] MEDS: Aspirin 81 mg Enteric Coated Tablet PO SCH (08:13)
[2019-10-12] MEDS: Hydrochlorothiazide 25 MG TAB PO SCH (08:13)
[2019-10-12] MEDS: Furosemide 20 MG/2 ML VIAL SLOW IVP SCH (08:14)
[2019-10-12] MEDS: Polyethylene Glycol 3350 17 GM Packet PO SCH (08:14)
--- NOTE | 2019-10-12 19:37 | PDOC.HOSPP ---
- Subjective Encounter Date: 10/12/19 Encounter Time: 18:00 Subjective: Doing better today. Had some dysuria at beginning of urination and then improved. No abdominal pain, nausea or vomiting. She walks but has to hold on to something. Uses a walker at home. Was going to be d/c but spouse uncomfortable driving at night due to macular degeneration - Objective Vital Signs & Weight: Vital Signs (12 hours) Temp Pulse Resp BP Pulse Ox 10/12/19 16:27 97.7 F 60 18 145/55 H 96 10/12/19 12:38 97.6 F 58 L 18 125/56 L 95 Weight Weight 109 lb 4.8 oz I&O: 10/11/19 10/12/19 10/13/19 06:59 06:59 06:59 Intake Total 240 Balance 240 Result Diagrams: 10/11/19 05:37 10/11/19 05:37 Hospitalist ROS - Review of Systems Constitutional: denies: fever, chills - Medication Medications: Active Medications Generic Name Dose Route Start Last Admin Trade Name Elmer PRN Reason Stop Dose Admin Aspirin 81 mg 10/11/19 09:00 10/12/19 08:13 Ecotrin PO 81 mg DAILY ANNEMARIE Administration Atorvastatin Calcium 20 mg 10/11/19 21:00 10/11/19 20:32 Lipitor PO 20 mg HS ANNEMARIE Administration Calcium/Vitamin D 1 tab 10/11/19 08:00 10/12/19 16:37 Caltrate 600 + Vit D PO 1 tab BID-WM ANNEMARIE Administration Cefpodoxime Proxetil 100 mg 10/12/19 09:13 10/12/19 10:29 Vantin PO 100 mg BID ANNEMARIE Administration Diltiazem HCl 240 mg 10/11/19 21:00 10/11/19 20:32 Cardizem Cd PO 240 mg HS ANNEMARIE Administration Doxazosin Mesylate 1 mg 10/11/19 09:00 10/12/19 08:12 Cardura PO 1 mg DAILY ANNEMARIE Administration Famotidine 20 mg 10/11/19 09:00 10/12/19 08:12 Pepcid PO 20 mg DAILY ANNEMARIE Administration Hydrochlorothiazide 12.5 mg 10/11/19 09:00 10/12/19 08:13 Hydrochlorothiazide PO 12.5 mg DAILY ANNEMARIE Administration Polyethylene Glycol 17 gm 10/11/19 09:00 10/12/19 08:14 Miralax PO 17 gm DAILY ANNEMARIE Administration Tramadol HCl 50 mg 10/11/19 09:00 10/12/19 16:37 Ultram PO 50 mg QID ANNEMARIE Administration - Exam General Appearance: NAD, awake alert Eye: PERRL, anicteric sclera ENT: normocephalic atraumatic, no oropharyngeal lesions Neck: supple, symmetric, no JVD Heart: RRR, no murmur, no gallops, no rubs Respiratory: CTAB, no wheezes, no rales, no ronchi Gastrointestinal: soft, non-tender, non-distended, normal bowel sounds Extremities: no cyanosis, no clubbing, no edema Skin: normal turgor, no lesions, no rashes Neurological: cranial nerve grossly intact, normal sensation to touch, no focal deficits, no new deficit Musculoskeletal: normal tone, normal strength Hosp A/P - Plan Chest X ray: negative CTA: no acute PE. Rib fracture 6th and 7th on the right This is 83 year old female who presented with dysuria, found to have UTI E coli UTI - UA showed moderate blood, positive nitrite and leukocyte esterase. - Was on ceftriaxone IV, switch to oral cefpodoxime bid today Rib fracture 6th and 7th - patient had one previously per - no complains of chest pain currently Gait instability - PT consult Macrocytic anemia - Hb 10, B12 and folate normal - check TSH Dispo: d/c in am
[2019-10-12] MEDS: Atorvastatin Calcium 20 MG TAB PO SCH (20:09)
[2019-10-13 06:39] LABS: Hemoglobin 11.1 g/dL (12.0-16.0); Mean Corpuscular HGB CONC 33.1 g/dL (32.0-36.0); Mean Corpuscular Volume 93.6 fL (78.0-98.0); Mean Platelet Volume 11.1 fL (7.4-10.4); Platelet Count 218 thou/uL (130-400); RBC Distribution Width 12.2 % (11.5-14.5); Red Blood Cell (RBC) Count 3.57 mill/uL (4.20-5.40); White Blood Cell (WBC) Count 8.1 thou/uL (4.8-10.8)
[2019-10-13 06:58] LABS: Anion Gap 11 mmol/L (10-20); BUN (Urea Nitrogen) 28 mg/dL (9.8-20.1); Calc. Creatinine Clearance 33 mL/min (70-130); Calcium 10.5 mg/dL (7.8-10.44); Carbon Dioxide 34 mmol/L (23-31); Chloride 97 mmol/L (98-107); Estimated GFR-MDRD 54; Glucose 97 mg/dL (83-110); Sodium 138 mmol/L (136-145)
[2019-10-13] MEDS: Hydrochlorothiazide 25 MG TAB PO SCH (08:15)
[2019-10-13] MEDS: Aspirin 81 mg Enteric Coated Tablet PO SCH (08:16)
[2019-10-13] MEDS: Doxazosin Mesylate 1 MG TAB PO SCH (08:16)
[2019-10-13] MEDS: Polyethylene Glycol 3350 17 GM Packet PO SCH (08:16)
[2019-10-13] MEDS: traMADol HCl 50 MG TAB PO SCH ×4 (08:16→19:57)
[2019-10-13] MEDS: Famotidine 20 MG TAB PO SCH (08:16)
[2019-10-13] MEDS: Calcium Carbonate + Vit D 1 TAB PO SCH ×2 (08:16→17:08)
--- NOTE | 2019-10-13 15:10 | PDOC.HOSPP ---
- Subjective Encounter Date: 10/13/19 Encounter Time: 14:00 Subjective: Patient is feeling well. No abdominal pain, nausea, or vomiting. She ambulated with PT today, felt to need rehab. Daughter wondering why patient was so short of breath initially, explained that chest X ray and CTA normal. Patient does have murmur for years per . PCP was following. She denies chest pain or shortness of breath currently. No chest odalys n - Objective Vital Signs & Weight: Vital Signs (12 hours) Temp Pulse Resp BP Pulse Ox 10/13/19 08:00 98.0 F 67 18 119/64 95 Weight Weight 109 lb 4.8 oz I&O: 10/12/19 10/13/19 10/14/19 06:59 06:59 06:59 Intake Total 240 150 Balance 240 150 Result Diagrams: 10/13/19 06:25 10/13/19 06:25 Hospitalist ROS - Review of Systems Eyes: denies: pain, other Respiratory: denies: cough Cardiovascular: denies: chest pain, light headedness Gastrointestinal: denies: nausea, vomiting - Medication Medications: Active Medications Generic Name Dose Route Start Last Admin Trade Name Freq PRN Reason Stop Dose Admin Aspirin 81 mg 10/11/19 09:00 10/13/19 08:16 Ecotrin PO 81 mg DAILY ANNEMARIE Administration Atorvastatin Calcium 20 mg 10/11/19 21:00 10/12/19 20:09 Lipitor PO 20 mg HS ANNEMARIE Administration Calcium/Vitamin D 1 tab 10/11/19 08:00 10/13/19 08:16 Caltrate 600 + Vit D PO 1 tab BID-WM ANNEMARIE Administration Cefpodoxime Proxetil 100 mg 10/12/19 09:13 10/13/19 08:14 Vantin PO 100 mg BID ANNEMARIE Administration Diltiazem HCl 240 mg 10/11/19 21:00 10/12/19 20:08 Cardizem Cd PO 240 mg HS ANNEMARIE Administration Doxazosin Mesylate 1 mg 10/11/19 09:00 10/13/19 08:16 Cardura PO 1 mg DAILY ANNEMARIE Administration Famotidine 20 mg 10/11/19 09:00 10/13/19 08:16 Pepcid PO 20 mg DAILY ANNEMARIE Administration Hydrochlorothiazide 12.5 mg 10/11/19 09:00 10/13/19 08:15 Hydrochlorothiazide PO 12.5 mg DAILY ANNEMARIE Administration Polyethylene Glycol 17 gm 10/11/19 09:00 10/13/19 08:16 Miralax PO 17 gm DAILY ANNEMARIE Administration Tramadol HCl 50 mg 10/11/19 09:00 10/13/19 13:01 Ultram PO 50 mg QID ANNEMARIE Administration - Exam General Appearance: NAD, awake alert Eye: PERRL, anicteric sclera ENT: normocephalic atraumatic, no oropharyngeal lesions Neck: supple, symmetric, no JVD, no thyromegaly Heart: RRR, no gallops, no rubs Heart - other findings: systolic murmur in second right intercostal space Respiratory: CTAB, no wheezes, no rales, no ronchi Gastrointestinal: soft, non-tender, non-distended Extremities: no cyanosis, no clubbing, no edema Skin: normal turgor, no lesions, no rashes Neurological: cranial nerve grossly intact, normal sensation to touch, no new deficit Hosp A/P - Plan Chest X ray: negative CTA: no acute PE. Rib fracture 6th and 7th on the right This is 83 year old female who presented with dysuria, found to have UTI E coli UTI - UA showed moderate blood, positive nitrite and leukocyte esterase. - Was on ceftriaxone IV, switch to oral cefpodoxime bid today Murmur - obtain ECHO, no previous ones on file Rib fracture 6th and 7th - patient had one previously per - no complains of chest pain currently Gait instability - PT consult, recommeding rehab Macrocytic anemia - Hb 11, B12 and folate normal - TSh normal Dispo: d/c in am
[2019-10-13] MEDS: Atorvastatin Calcium 20 MG TAB PO SCH (19:56)
[2019-10-14] MEDS: Aspirin 81 mg Enteric Coated Tablet PO SCH (08:20)
[2019-10-14] MEDS: Calcium Carbonate + Vit D 1 TAB PO SCH ×2 (08:20→17:16)
[2019-10-14] MEDS: Doxazosin Mesylate 1 MG TAB PO SCH (08:20)
[2019-10-14] MEDS: Famotidine 20 MG TAB PO SCH (08:21)
[2019-10-14] MEDS: Hydrochlorothiazide 25 MG TAB PO SCH (08:22)
[2019-10-14] MEDS: traMADol HCl 50 MG TAB PO SCH ×4 (08:22→19:45)
[2019-10-14] MEDS: Polyethylene Glycol 3350 17 GM Packet PO SCH (09:09)
--- NOTE | 2019-10-14 18:12 | PDOC.HOSPP ---
- Subjective Encounter Date: 10/14/19 Encounter Time: 14:00 Subjective: Patient is doing well. She is incontinent of urine. Per she is urinating frequently. She has a strong urge to go to the bathroom then once she goes she feels relief. She denies chest pain or shortness of breath on exertion. Got approved for rehab today. ECHO was pending - Objective Vital Signs & Weight: Vital Signs (12 hours) Temp Pulse Resp BP Pulse Ox 10/14/19 08:00 96.9 F L 71 16 109/52 L 95 Weight Weight 109 lb 4.8 oz I&O: 10/13/19 10/14/19 10/15/19 06:59 06:59 06:59 Intake Total 150 210 Balance 150 210 Result Diagrams: 10/13/19 06:25 10/13/19 06:25 Hospitalist ROS - Review of Systems Constitutional: denies: fever, chills - Medication Medications: Active Medications Generic Name Dose Route Start Last Admin Trade Name Freq PRN Reason Stop Dose Admin Aspirin 81 mg 10/11/19 09:00 10/14/19 08:20 Ecotrin PO 81 mg DAILY ANNEMARIE Administration Atorvastatin Calcium 20 mg 10/11/19 21:00 10/13/19 19:56 Lipitor PO 20 mg HS ANNEMARIE Administration Calcium/Vitamin D 1 tab 10/11/19 08:00 10/14/19 17:16 Caltrate 600 + Vit D PO 1 tab BID-WM ANNEMARIE Administration Cefpodoxime Proxetil 100 mg 10/12/19 09:13 10/14/19 08:21 Vantin PO 100 mg BID ANNEMARIE Administration Cholecalciferol 1,000 units 10/14/19 09:00 10/14/19 08:21 Vitamin D3 PO 1,000 units DAILY ANNEMARIE Administration Diltiazem HCl 240 mg 10/11/19 21:00 10/13/19 19:57 Cardizem Cd PO 240 mg HS ANNEMARIE Administration Doxazosin Mesylate 1 mg 10/11/19 09:00 10/14/19 08:20 Cardura PO 1 mg DAILY ANNEMARIE Administration Famotidine 20 mg 10/11/19 09:00 10/14/19 08:21 Pepcid PO 20 mg DAILY ANNEMARIE Administration Polyethylene Glycol 17 gm 10/11/19 09:00 10/14/19 09:09 Miralax PO Not Given DAILY ANNEMARIE Tramadol HCl 50 mg 10/11/19 09:00 10/14/19 17:16 Ultram PO 50 mg QID ANNEMARIE Administration - Exam General Appearance: NAD, awake alert Eye: PERRL, anicteric sclera ENT: normocephalic atraumatic, no oropharyngeal lesions Neck: supple, symmetric, no JVD, no thyromegaly, no carotid bruit Heart: RRR Heart - other findings: loud systolic murmur on right second intercostal space Respiratory: CTAB, no wheezes, no rales, no ronchi Gastrointestinal: soft, non-tender, non-distended Extremities: no cyanosis, no clubbing, no edema Skin: normal turgor, no lesions, no rashes Neurological: cranial nerve grossly intact, normal sensation to touch, no focal deficits, no new deficit Hosp A/P - Plan Chest X ray: negative CTA: no acute PE. Rib fracture 6th and 7th on the right This is 83 year old female who presented with dysuria, found to have UTI E coli UTI - UA showed moderate blood, positive nitrite and leukocyte esterase. - Was on ceftriaxone IV, switch to oral cefpodoxime bid today. Currently day 4. Will recheck UA given persistent urgency Urge incontinence - recheck UA - will d/c hydrochlorothiazide due to excessive urination Severe aortic stenosis - noted on ECHO, will obtain cardio consult prior to d/c Rib fracture 6th and 7th - patient had one previously per - no complains of chest pain currently Gait instability - PT consult, recommending rehab Macrocytic anemia - Hb 11, B12 and folate normal - TSh normal Hypercalcemia - resolved. PTH normal, vitamin D low Vitamin D deficiency - started vitamin D supplementation Dispo: d/c in am
[2019-10-14] MEDS: Atorvastatin Calcium 20 MG TAB PO SCH (19:45)
[2019-10-14 23:13] LABS: Bacteria/HPF None Seen HPF (None Seen); Bilirubin Negative (Negative); Blood, Urine Negative (Negative); Clarity Turbid (Clear); Glucose, Urine (Dipstick) Normal (Negative); Leukocyte 75 Leu/uL (Negative); Nitrite Negative (Negative); Protein, Urine (Dipstick) Negative (Neg-Trace); Urobilinogen Normal mg/dL (Less than 2); WBC/HPF 21-50 HPF (0-3)
[2019-10-14 23:17] LABS: Urine Culture Reflex No No
[2019-10-15] MEDS: Aspirin 81 mg Enteric Coated Tablet PO SCH (08:04)
[2019-10-15] MEDS: Famotidine 20 MG TAB PO SCH (08:04)
[2019-10-15] MEDS: Polyethylene Glycol 3350 17 GM Packet PO SCH (08:05)
[2019-10-15] MEDS: Doxazosin Mesylate 1 MG TAB PO SCH (08:05)
[2019-10-15] MEDS: Calcium Carbonate + Vit D 1 TAB PO SCH ×2 (08:05→16:20)
[2019-10-15] MEDS: traMADol HCl 50 MG TAB PO SCH ×3 (08:06→16:20)
[2019-10-15 11:42] LABS: Anion Gap 9 mmol/L (10-20); BUN (Urea Nitrogen) 23 mg/dL (9.8-20.1); Calc. Creatinine Clearance 40 mL/min (70-130); Calcium 10.1 mg/dL (7.8-10.44); Carbon Dioxide 34 mmol/L (23-31); Chloride 98 mmol/L (98-107); Estimated GFR-MDRD 67; Glucose 66 mg/dL (83-110); Potassium 3.9 mmol/L (3.5-5.1); Sodium 137 mmol/L (136-145)
--- NOTE | 2019-10-15 16:45 | DIS ---
DATE OF ADMISSION: 10/10/2019 DATE OF DISCHARGE: 10/15/2019 DISCHARGE DIAGNOSES: Escherichia coli urinary tract infection, rib fracture on the 6th and 7th rib, severe aortic stenosis, gait instability, macrocytic anemia, hypercalcemia, vitamin D deficiency, and urge incontinence. CONSULTATIONS: Dr. He Morales with Cardiology. PROCEDURES: None. BRIEF HISTORY OF PRESENT ILLNESS: This is an 83-year-old female, who presented to [facility] ER with increasing shortness of breath and some peripheral edema and weakness. The patient denied any recent history of travel. The patient reports a history of recurrent UTIs with a recent admission to [facility] for Klebsiella and E coli UTI bacteremia. In the ER, the patient received Rocephin IV and Lasix 20 IV empirically. She had a chest x-ray that was normal and a CTA of her chest that showed no PE. She had an EKG, which showed normal sinus rhythm. The patient had troponin done in the ER, which was less than 0.010. Shortness of breath possibly from severe aortic stenosis: The patient had some shortness of breath initially when she came to the ER. She did not have any further episodes of shortness of breath after that. Her chest x-ray and CTA were unremarkable. However, she did have a loud murmur heard on physical exam; therefore, an echocardiogram was done, which showed an EF of 60% to 65% and severe aortic stenosis. The patient's states that the patient has passed out in the past and occasionally will get short of breath on exertion. They used to see Dr. Mcghee; however, had not seen him in a few years. Cardiology was consulted and recommended that the patient be discharged on aspirin. They will need to follow up with Dr. Morales in 4 to 6 weeks for workup of a possible TAVR. For now, she will not be discharged on any diuretics given that her blood pressure is ranging from 109 to 130 without any medications except for doxazosin. E coli UTI: The patient had a UA which showed moderate blood, positive nitrite, and greater than 50 white blood cells. She was initially given IV ceftriaxone and was switched to cefpodoxime the following day. She has completed 5 days of therapy in the hospital and will need additional 2 days on discharge. She did have a repeat UA and urine culture done on the , which was normal. Of note, the patient does have some urge incontinence. She was not discharged on any medication that she is being actively treated for UTI. Rib fracture on the 6th and 7th rib: The patient had a CT scan of the thorax, which showed a fracture involving the right 6th and 7th ribs. According to the , this is old and they knew about this previously. The patient is on tramadol at home. The patient denied any complaints of chest pain. The patient will resume her bisphosphonate for osteoporosis. Hypercalcemia: The patient did have a calcium elevation of 10.5 on the . This resolved and her calcium was 10.1 on the day of discharge. Her vitamin D level was checked and was low at 16, and her PTH was normal. She was discharged on vitamin D supplementation. Vitamin D deficiency: The patient's vitamin D level was 16.7. She started on 1000 mg p.o. daily. She will need a repeat vitamin D level in a few months. Anemia: The patient had a hemoglobin of 11.1. She did have a TSH, which was normal. Vitamin B12 was 319. Folate was 9.10. The patient can have further workup of this as an outpatient. Gait instability: The patient is noted to be very unsteady while walking. PT was consulted and recommended the patient get rehab. She will be discharged to [facility]. DISCHARGE PHYSICAL EXAMINATION: VITAL SIGNS: Temperature 97.7, heart rate 75, respiratory rate 18, O2 saturation 92% on room air, and blood pressure 138/63. GENERAL: The patient is alert, awake, and oriented x3. CVS: The patient has a loud systolic murmur on the right second intercostal space. LUNGS: Clear to auscultation bilaterally. ABDOMEN: Positive bowel sounds, soft, nontender, and nondistended. EXTREMITIES: No edema. PERTINENT LABORATORY DATA: CBC on 10/13: The patient has hemoglobin of 11.1, hematocrit 33.4. BMP on 10/15: CO2 is mildly elevated at 34, calcium is 10.1. Rest of BMP is unremarkable. Vitamin D level : 16.7. Folate: 9.10. TSH: 2.3134. PTH : 67.5. LFTs: AST is 23, ALT is 13, alkaline phosphatase is 116. Troponin I is less than 0.010. Lipase was 22. PERTINENT IMAGING STUDIES: Chest x-ray on 10/10: Shows an old rib fracture in the right 6th and 7th ribs. There is no lobar consolidation. CTA thorax: Shows no evidence of acute PE. There are no pleural or pericardial effusions. Echocardiogram on 10/14: Shows the EF of 60% to 65%, severe aortic stenosis, mild MR. DISCHARGE CONDITION: Stable. DISPOSITION: The patient will be discharged to [facility]. ACTIVITY: As tolerated. DIET: Heart healthy diet. DISCHARGE MEDICATIONS: New medications: 1. Cefpodoxime 100 mg p.o. q.12 hours for two more days. 2. Vitamin D3 of 1000 units p.o. daily. 3. Aspirin 81 mg daily. Discontinued medications: hydrochlorothiazide. All other home medications were resumed. DISCHARGE INSTRUCTIONS: The patient should follow up with her PCP in a week. She will need follow up with Dr. He Morales in 4 to 6 weeks for workup of severe aortic stenosis and evaluation of TAVR. The patient will need to have her anemia followed up with her PCP as well. Consider starting medication for urge incontinence after finishing completion of her UTI. Job ID: [id number] [facility] CENTERJoey
--- NOTE | 2019-10-15 18:07 | CON ---
DATE OF CONSULTATION: 10/15/2019 REASON FOR CONSULTATION: Aortic stenosis. HISTORY OF PRESENT ILLNESS: Ms. Bran is a very pleasant 83-year-old white female, who comes to the hospital for shortness of breath and weakness. She was admitted and evaluated and diagnosed with urinary tract infection as well as what appeared to be acute kidney injury on chronic kidney disease. An echocardiogram was performed that showed severe aortic stenosis with valve area of 0.8, mean gradient of 40 mmHg, so Cardiology has been consulted for this. On my evaluation, Ms. Bran states that she is short of breath with any exertion at home and she has been slowing down quite a bit in the last few months. She currently denies any chest pain, tightness, or pressure. No syncope or presyncope. PAST MEDICAL HISTORY: 1. Recurrent urinary tract infections. 2. Hyperlipidemia. 3. Hypertension. 4. Rheumatoid arthritis. 5. Post herpetic neuralgia. 6. Degenerative joint disease. 7. Chronic low back pain. SURGICAL HISTORY: 1. Skin cancer removal. 2. Strabismus correction of the left eye. 3. EGD. OUTPATIENT MEDICATIONS: 1. Alendronate. 2. Aspirin 81 mg a day. 3. Multivitamin daily. 4. Diltiazem 240 mg a day. 5. Hydrochlorothiazide 12.5 mg a day. 6. MiraLAX. 7. Simvastatin 40 mg at bedtime. 8. Tramadol 50 mg q.i.d. 9. Cardura 1 mg a day. ALLERGIES: NO KNOWN DRUG ALLERGIES. FAMILY HISTORY: Father with an LA in his 80s. Mother with CVA. SOCIAL HISTORY: No alcohol, tobacco, or drugs. Lives with her in a house here close to the hospital in [place]. REVIEW OF SYSTEMS: A 12-point review of systems was done and was all negative unless stated in the history of present illness. PHYSICAL EXAMINATION: VITAL SIGNS: Temperature 97.7, pulse 59, respiratory rate 16, sat 92% on room air, and blood pressure 138/63. GENERAL: Awake, alert, and oriented x3. No distress. HEENT: Normocephalic and atraumatic. NECK: Supple. LUNGS: Clear. CARDIOVASCULAR: S1 and S2. There is a grade 3/6 systolic murmur at the right upper sternal border, late-peaking, it radiated to the rest of the precordium and the carotids. There is a second holosystolic murmur at the apex. ABDOMEN: Soft. Positive bowel sounds. EXTREMITIES: Trace edema. SKIN: Warm and dry. LABORATORY DATA: Laboratory work was reviewed. White count of 8, hemoglobin of 11, hematocrit of 33, platelet count of 218. Coags reviewed. Chemistries were reviewed. BUN of 23, creatinine 0.81, GFR of 67. UA, positive nitrites. A repeat UA on is negative nitrites, but 21-50 white cells, and no bacteria seen. Echocardiogram was reviewed. ASSESSMENT: 1. Severe aortic stenosis. 2. Recurrent urinary tract infections. 3. Acute on chronic diastolic heart failure during this admission, likely from her aortic stenosis. PLAN: She is certainly a candidate for an aortic valve replacement. Due to her advanced age, she would be a better candidate for a transcutaneous aortic valve. We will try to set this up as an outpatient. She may be discharged home at any point from the cardiac perspective, and we will plan on seeing her back in about a month. Hopefully, her UTI is completely gone and treated. At that point, we will schedule her for heart catheterization. We are going to do left heart catheterization and start the process to get her a transcutaneous aortic valve. Thank you for letting us participate in the care of your patient. We will sign off. Please call with any questions. Job ID: [id number]
[2019-10-15 18:32] VITALS: BP 151/67; TEMP 97.9
== END 2019-10-15 18:56 | DRG 306 ==
LOC: ERS 12:17 → T4-B 22:31
PROVIDERS: ADMIT Internal Medicine; ATTEND Internal Medicine
DX: I35.0 Nonrheumatic aortic (valve) stenosis (principal); I50.33 Acute on chronic diastolic (congestive) heart failure; N39.0 Urinary tract infection, site not specified; B02.29 Other postherpetic nervous system involvement; N17.9 Acute kidney failure, unspecified; I13.0 Hypertensive heart and chronic kidney disease with heart failure and stage 1 through stage 4 chronic kidney disease, or unspecified chronic kidney disease; M80.00XA Age-related osteoporosis with current pathological fracture, unspecified site, initial encounter for fracture; B96.20 Unspecified Escherichia coli [E. coli] as the cause of diseases classified elsewhere; E55.9 Vitamin D deficiency, unspecified; E83.52 Hypercalcemia; R32 Unspecified urinary incontinence; D64.9 Anemia, unspecified; E78.5 Hyperlipidemia, unspecified; M06.9 Rheumatoid arthritis, unspecified; G89.29 Other chronic pain; M54.9 Dorsalgia, unspecified; N18.9 Chronic kidney disease, unspecified; D63.1 Anemia in chronic kidney disease; M19.90 Unspecified osteoarthritis, unspecified site; Z87.440 Personal history of urinary (tract) infections; Z85.828 Personal history of other malignant neoplasm of skin; Z79.899 Other long term (current) drug therapy
CPT/HCPCS: 36415; 51701; 71045; 71275; 80048; 80053; 81001; 81003; 81015; 82306; 82310; 82607; 82746; 83690; 83880; 83970; 84443; 84484; 85007; 85025; 85027; 85379; 87077; 87086; 87186; 93005; 93306; 94760; 96365; 96375; A4353; J0696; J1940; J3490; Q9967

== ENCOUNTER 2019-11-22 02:19 | Inpatient (IN) | payer MEDICARE, OTHER ==
[2019-11-22 02:59] LABS: Hemoglobin 10.8 g/dL (12.0-16.0); Mean Corpuscular Hemoglobin 30.3 pg (27.0-31.0); Mean Corpuscular Volume 91.8 fL (78.0-98.0); Mean Platelet Volume 11.3 fL (7.4-10.4); Platelet Count 183 thou/uL (130-400); RBC Distribution Width 12.4 % (11.5-14.5); Red Blood Cell (RBC) Count 3.59 mill/uL (4.20-5.40)
[2019-11-22 03:13] LABS: Band 8 % (5-11); Lymphocytes 8 % (21-51); MDiff Complete? YES; Monocytes 3 % (0-10); Neutrophil 81 % (42-75)
[2019-11-22 03:16] LABS: ALT (SGPT) 11 U/L (8-55); AST (SGOT) 19 U/L (5-34); Albumin 3.9 g/dL (3.4-4.8); Alkaline Phosphatase 104 U/L (40-110); Anion Gap 14 mmol/L (10-20); BUN (Urea Nitrogen) 22 mg/dL (9.8-20.1); Bilirubin, Total 0.5 mg/dL (0.2-1.2); Calc. Creatinine Clearance 0 mL/min (70-130); Carbon Dioxide 25 mmol/L (23-31); Chloride 104 mmol/L (98-107); Estimated GFR-MDRD 63; Globulin 2.9 g/dL (2.4-3.5); Glucose 130 mg/dL (83-110); Potassium 3.8 mmol/L (3.5-5.1); Protein, Total 6.8 g/dL (6.0-8.3); Sodium 139 mmol/L (136-145)
[2019-11-22 03:37] LABS: PTT 28.2 SEC (22.9-36.1); Prothrombin Time 13.4 SEC (12.0-14.7)
[2019-11-22] MEDS ORDERED: Cefepime 2 GM VIAL ONE (03:58)
[2019-11-22] MEDS ORDERED: Ondansetron PF 4 MG/2 ML Vial IVP PRN (04:00)
[2019-11-22] MEDS ORDERED: Ondansetron ODT 4 MG TAB SL PRN (04:00)
[2019-11-22] MEDS ORDERED: Sodium Chloride 0.9% 1,000 ML IV SCH (04:00)
[2019-11-22] MEDS ORDERED: Acetaminophen 325 MG TAB PO PRN (04:00)
[2019-11-22 04:48] LABS: Bilirubin Negative (Negative); Blood, Urine Trace (Negative); Clarity Turbid (Clear); Glucose, Urine (Dipstick) Normal (Negative); Leukocyte 500 Leu/uL (Negative); Nitrite Negative (Negative); Protein, Urine (Dipstick) 10 mg/dL (Neg-Trace); Squamous Epithelial 0-3 HPF (0-3); Urobilinogen Normal mg/dL (Less than 2); WBC/HPF Greater than 50 HPF (0-3)
[2019-11-22 04:56] LABS: Bacteria/HPF 1+ HPF (None Seen)
--- NOTE | 2019-11-22 08:38 | RAD ---
SINGLE VIEW CHEST: HISTORY: Difficulty breathing. COMPARISON: 10/10/2019 FINDINGS: Single view of the chest show normal sized cardiomediastinal silhouette. There is no evidence of cons olidation, mass, or pleural effusion. Degenerative changes are seen in the spine. There are remote ri ght rib fractures. IMPRESSION: No evidence of acute cardiopulmonary disease. POS: [facility]
[2019-11-22 11:24] VITALS: BMI 22.1
[2019-11-22] MEDS ORDERED: Cefepime 2 GM in Sodium Chloride 0.9% 100 ML IVPB SCH ×2 (12:00→23:59)
[2019-11-22] MEDS ORDERED: Azithromycin 500 MG in Sodium Chloride 0.9% 250 ML 250 ML IVPB SCH (13:00)
[2019-11-22] MEDS ORDERED: Alendronate Sodium 70 mg Tablet PO SCH (14:30)
--- NOTE | 2019-11-22 14:54 | HP ---
PRIMARY CARE PROVIDER: Ricco Penn MD CHIEF COMPLAINT: Shortness of breath. HISTORY OF PRESENT ILLNESS: Ms. Bran is a pleasant 83-year-old lady, who was seen at [facility] on November 22, 2019. The patient is hard of hearing, but is able to answer questions. Collateral history was obtained from review of medical records and discussion with emergency room physician. She was hospitalized at this facility from October 10 to of this year for urinary tract infection and acute on chronic renal failure. She was reportedly doing well until last night. Last night, she started having shortness of breath and cough. She denies any sputum. The patient's room air oxygen saturation was 84%, increased to 95% after breathing treatment. She denies any chest pain. She denies any nausea or vomiting. She denies any abdominal pain. She denies any dysuria or increased frequency of urination. REVIEW OF SYSTEMS: All systems were reviewed and found to be negative except for the pertinent positives mentioned above. PAST MEDICAL HISTORY: Recurrent urinary tract infections, dyslipidemia, hypertension, rheumatoid arthritis, suspected aortic stenosis, postherpetic neuralgia, degenerative joint disease, chronic low back pain. PAST SURGICAL HISTORY: Status post skin cancer removal, status post strabismus correction of the left eye, status post EGD. FAMILY HISTORY: Father with myocardial infarction and mother with cerebrovascular accident. SOCIAL HISTORY: The patient denies tobacco use, alcohol use, or recreational drug use. ALLERGIES: NO KNOWN DRUG ALLERGIES. CURRENT MEDICATIONS: 1. Vitamin D3 1000 units daily. 2. Aspirin 81 mg daily. 3. Alendronate 70 mg every week. 4. Calcium citrate 1000 mg 2 times a day. 5. Cardizem 240 mg daily. 6. Simvastatin 40 mg daily. 7. Tramadol p.r.n. 8. Citrucel 1000 mg daily. 9. Doxazosin 1 mg daily. PHYSICAL EXAMINATION: GENERAL: On examination, Ms. Bran is awake and alert, not in acute distress. VITAL SIGNS: Blood pressure is 112/60, pulse 78, respiratory rate 20, and oxygen saturation 99% on room air. Temperature is 99.2 degrees Fahrenheit. EYES: No scleral icterus. No conjunctival pallor. ENT: Moist mucosal membranes. No oropharyngeal erythema or exudates. NECK: Supple, nontender. Trachea is midline. RESPIRATORY: Accessory muscles of breathing are not active. Chest wall movements are symmetric bilaterally. She has occasional expiratory wheeze. ABDOMEN: Soft, nontender. Bowel sounds are heard. NEUROLOGIC: Cranial nerves 2 through 12 are intact except for hard of hearing. MUSCULOSKELETAL: Power is 5/5 in all 4 extremities. SKIN: No rashes. LYMPHATIC: No cervical lymphadenopathy. PSYCHIATRIC: Normal mood, normal affect. The patient is oriented to person, place, and time. LABORATORY DATA AND INVESTIGATIONS: Reviewed. I reviewed her electrocardiogram, which shows normal sinus rhythm, no ST changes to suggest an acute coronary syndrome. I also reviewed her chest x-ray, which does not show any pulmonary infiltrates. She has leukocytosis with 19,000 white cells, of which 81% are neutrophils. She also has normocytic anemia with hemoglobin of 10.8 and normal platelet count. INR 1.0. Unremarkable comprehensive metabolic profile. Normal lactic acid and normal troponin I. BNP is mildly elevated at 130. Urinalysis is positive for leukocyte esterase and negative for nitrite. ASSESSMENT AND PLAN: Ms. Bran is a pleasant 83-year-old lady, who was seen at [facility] on November 22, 2019. Her problem list includes: 1. Acute bronchitis: Ms. Bran is presenting with shortness of breath, most likely secondary to acute bronchitis. She has been started on cefepime and vancomycin in the emergency room. I will add azithromycin for now. We will await blood cultures. The patient reports clinical improvement after coming to the emergency room. 2. Urinary tract infection: She is also presenting with urinary tract infection. In the past, she had Escherichia coli urinary tract infection, pansensitive. We will continue her on the above medications for now. 3. Hypertension: We will resume home medications, monitor vital signs and titrate antihypertensives as needed. 4. Dyslipidemia: Continue statin. 5. Rheumatoid arthritis: This appears to be stable. Many thanks for allowing me to participate in your patient's care. Please feel free to contact me with any questions or concerns. LEVEL OF RISK: High. LEVEL OF COMPLEXITY: High. Job ID: [id number]
[2019-11-22] MEDS: Atorvastatin Calcium 20 MG TAB PO SCH (20:08)
[2019-11-22] MEDS: Azithromycin 500 MG in Sodium Chloride 0.9% 250 ML 250 ML IVPB SCH (20:08)
[2019-11-22] MEDS: Calcium Carbonate + Vit D 1 TAB PO SCH (20:08)
[2019-11-23] MEDS: Cefepime 2 GM in Sodium Chloride 0.9% 100 ML IVPB SCH ×2 (04:07→16:20)
[2019-11-23] MEDS: Vancomycin HCl 750 MG in Sodium Chloride 0.9% 250 ML 250 ML IVPB SCH (04:23)
[2019-11-23] MEDS ORDERED: Cepastat Lozenges 1 LOZ PO PRN (07:39)
[2019-11-23] MEDS ORDERED: Diabetic Tussin 200 MG/10 ML UDCUP PO PRN (07:39)
[2019-11-23] MEDS ORDERED: Sodium Chloride 0.65% Nasal 44 ML BOT EA NARE PRN (07:39)
[2019-11-23] MEDS ORDERED: Artificial Tears 18 DROP/0.9 ML EA EYE PRN (07:39)
[2019-11-23] MEDS ORDERED: Bisacodyl 5 MG TAB PO PRN (07:39)
[2019-11-23] MEDS ORDERED: hydrALAZINE 20 MG/ML VIAL SLOW IVP PRN (07:39)
[2019-11-23] MEDS ORDERED: Loperamide HCl 2 MG CAP PO PRN (07:39)
[2019-11-23] MEDS ORDERED: cloNIDine 0.1 MG TAB PO PRN (07:39)
[2019-11-23] MEDS ORDERED: Calcium Carbonate 500 MG ChewTAB PO PRN (07:39)
[2019-11-23] MEDS ORDERED: traMADol HCl 50 MG TAB PO PRN (07:39)
[2019-11-23] MEDS ORDERED: Zolpidem Tartrate 5 MG TAB PO PRN (07:39)
[2019-11-23] MEDS ORDERED: Loratadine 10 MG TAB PO PRN (07:39)
[2019-11-23] MEDS ORDERED: Metoclopramide HCl 10 MG/2 ML VIAL IVP PRN (07:40)
[2019-11-23] MEDS: Polyethylene Glycol 3350 17 GM Packet PO SCH (08:55)
[2019-11-23] MEDS: Aspirin 81 mg Enteric Coated Tablet PO SCH (08:55)
[2019-11-23] MEDS: Calcium Carbonate + Vit D 1 TAB PO SCH ×2 (08:55→20:44)
--- NOTE | 2019-11-23 10:38 | PDOC.HOSPP ---
- Subjective Encounter Date: 11/23/19 Encounter Time: 09:40 Subjective: Patient seen and examined. No new complaints. No overnight events - Objective Vital Signs & Weight: Vital Signs (12 hours) Temp Pulse Resp BP BP Pulse Ox 11/23/19 08:00 97.4 F L 68 17 142/58 H 93 L 11/23/19 06:40 57 L 16 100 11/23/19 05:47 97.9 F 75 20 129/62 97 11/23/19 00:00 98.3 F 73 20 120/62 92 L Weight Weight 113 lb 1.6 oz I&O: 11/22/19 11/23/19 11/24/19 06:59 06:59 06:59 Intake Total 1350 Balance 1350 Result Diagrams: 11/22/19 02:47 11/22/19 02:47 Hospitalist ROS - Review of Systems ENT: denies: ear pain, ear discharge, nose pain, nose discharge, nose congestion , mouth pain, mouth swelling, throat pain, throat swelling, other Respiratory: denies: cough, dry, shortness of breath, hemoptysis, SOB with excertion, pleuritic pain, sputum, wheezing, other Cardiovascular: denies: chest pain, palpitations, orthopnea, paroxysmal noc. dyspnea, edema, light headedness, other Gastrointestinal: denies: nausea, vomiting, abdominal pain, diarrhea, constipation, melena, hematochezia, other Genitourinary: denies: dysuria, frequency, incontinence, hematuria, retention, other Musculoskeletal: denies: neck pain, shoulder pain, arm pain, back pain, hand pain, leg pain, foot pain, other Skin: denies: rash, lesions, matthew, bruising, other - Medication Medications: Active Medications Generic Name Dose Route Start Last Admin Trade Name Freq PRN Reason Stop Dose Admin Albuterol/Ipratropium 3 ml 11/22/19 19:00 11/23/19 06:40 Duoneb NEB 3 ml [id number] ANNEMARIE Administration Aspirin 81 mg 11/23/19 09:00 11/23/19 08:55 Ecotrin PO 81 mg DAILY ANNEMARIE Administration Atorvastatin Calcium 20 mg 11/22/19 21:00 11/22/19 20:08 Lipitor PO 20 mg HS ANNEMARIE Administration Calcium/Vitamin D 1 tab 11/22/19 21:00 11/23/19 08:55 Caltrate 600 + Vit D PO 1 tab BID ANNEMARIE Administration Cholecalciferol 1,000 units 11/23/19 09:00 11/23/19 08:55 Vitamin D3 PO 1,000 units DAILY ANNEMARIE Administration Diltiazem HCl 240 mg 11/22/19 21:00 11/22/19 20:09 Cardizem Cd PO 240 mg HS ANNEMARIE Administration Vancomycin HCl 750 mg/ Sodium 250 mls @ 250 mls/hr 11/23/19 05:00 11/23/19 04 :23 Chloride IVPB 250 mls 0500 ANNEMARIE Administration Azithromycin 500 mg/ Sodium 250 mls @ 250 mls/hr 11/22/19 20:00 11/22/19 20: 08 Chloride IVPB 250 mls 2000 ANNEMARIE Administration Cefepime HCl 2 gm/ Sodium 100 mls @ 200 mls/hr 11/23/19 04:00 11/23/19 04:07 Chloride IVPB 100 mls 0400,1600 ANNEMARIE Administration Polyethylene Glycol 17 gm 11/23/19 09:00 11/23/19 08:55 Miralax PO Not Given DAILY ANNEMARIE - Exam General Appearance: NAD, awake alert Eye: PERRL, anicteric sclera ENT: normocephalic atraumatic, no oropharyngeal lesions Neck: supple, symmetric, no JVD Heart: RRR, no murmur, no gallops, no rubs Respiratory: CTAB, no wheezes, no rales, no ronchi Gastrointestinal: soft, non-tender, non-distended, normal bowel sounds Extremities: no cyanosis, no clubbing Skin: normal turgor, no lesions Neurological: no focal deficits Musculoskeletal: normal tone, normal strength Psychiatric: normal affect, normal behavior Hosp A/P (1) Acute bronchitis Code(s): J20.9 - ACUTE BRONCHITIS, UNSPECIFIED Status: Acute Qualifiers: Bronchitis organism: unspecified organism Qualified Code(s): J20.9 - Acute bronchitis, unspecified (2) Hypertension Code(s): I10 - ESSENTIAL (PRIMARY) HYPERTENSION Status: Chronic (3) UTI (urinary tract infection) Status: Acute Qualifiers: Urinary tract infection type: acute cystitis (4) Dyslipidemia Code(s): E78.5 - HYPERLIPIDEMIA, UNSPECIFIED Status: Chronic (5) Rheumatoid arthritis Code(s): M06.9 - RHEUMATOID ARTHRITIS, UNSPECIFIED Status: Chronic - Plan old records reviewed/req, continue antibiotics continue cefepime, azithromycin and vancomycin, follow culture, pt has clinical improvement, medication reviewed and continue to provide symptomatic treatment and supportive care
[2019-11-23] MEDS: Doxazosin 2 MG TAB PO SCH (14:54)
[2019-11-23] MEDS: Atorvastatin Calcium 20 MG TAB PO SCH (20:44)
[2019-11-23] MEDS: Azithromycin 500 MG in Sodium Chloride 0.9% 250 ML 250 ML IVPB SCH (20:44)
[2019-11-24] MEDS ORDERED: Metoclopramide HCl 10 MG TAB PO PRN (02:27)
[2019-11-24] MEDS: Cefepime 2 GM in Sodium Chloride 0.9% 100 ML IVPB SCH ×2 (04:05→16:06)
[2019-11-24 05:04] LABS: Vancomycin, Trough 6.7 ug/mL
[2019-11-24] MEDS: Vancomycin HCl 750 MG in Sodium Chloride 0.9% 250 ML 250 ML IVPB SCH (05:18)
[2019-11-24] MEDS ORDERED: Vancomycin HCl 1.25 GM in Sodium Chloride 0.9% 250 ML 250 ML IVPB SCH (06:00)
[2019-11-24] MEDS: Calcium Carbonate + Vit D 1 TAB PO SCH ×2 (08:52→20:52)
[2019-11-24] MEDS: Aspirin 81 mg Enteric Coated Tablet PO SCH (08:52)
[2019-11-24] MEDS: Polyethylene Glycol 3350 17 GM Packet PO SCH (08:53)
[2019-11-24] MEDS ORDERED: Doxazosin Mesylate 1 MG TAB PO SCH (10:00)
[2019-11-24] MEDS: Doxazosin 2 MG TAB PO SCH (10:39)
--- NOTE | 2019-11-24 11:51 | PDOC.HOSPP ---
- Subjective Encounter Date: 11/24/19 Encounter Time: 10:35 Subjective: Patient seen and examined. No new complaints. No overnight events - Objective Vital Signs & Weight: Vital Signs (12 hours) Temp Pulse Resp BP BP Pulse Ox 11/24/19 08:00 98.2 F 69 18 121/55 L 93 L 11/24/19 07:47 72 16 11/24/19 03:30 98.5 F 68 17 136/59 L 93 L Weight Weight 113 lb 1.6 oz I&O: 11/23/19 11/24/19 11/25/19 06:59 06:59 06:59 Intake Total 1350 2150 Balance 1350 2150 Result Diagrams: 11/22/19 02:47 11/22/19 02:47 Hospitalist ROS - Review of Systems ENT: denies: ear pain, ear discharge, nose pain, nose discharge, nose congestion , mouth pain, mouth swelling, throat pain, throat swelling, other Respiratory: denies: cough, dry, shortness of breath, hemoptysis, SOB with excertion, pleuritic pain, sputum, wheezing, other Cardiovascular: denies: chest pain, palpitations, orthopnea, paroxysmal noc. dyspnea, edema, light headedness, other Gastrointestinal: denies: nausea, vomiting, abdominal pain, diarrhea, constipation, melena, hematochezia, other Genitourinary: denies: dysuria, frequency, incontinence, hematuria, retention, other Musculoskeletal: denies: neck pain, shoulder pain, arm pain, back pain, hand pain, leg pain, foot pain, other - Medication Medications: Active Medications Generic Name Dose Route Start Last Admin Trade Name Rajinderq PRN Reason Stop Dose Admin Albuterol/Ipratropium 3 ml 11/22/19 19:00 11/24/19 07:47 Duoneb NEB 3 ml [id number] ANNEMARIE Administration Aspirin 81 mg 11/23/19 09:00 11/24/19 08:52 Ecotrin PO 81 mg DAILY ANNEMARIE Administration Atorvastatin Calcium 20 mg 11/22/19 21:00 11/23/19 20:44 Lipitor PO 20 mg HS ANNEMARIE Administration Calcium/Vitamin D 1 tab 11/22/19 21:00 11/24/19 08:52 Caltrate 600 + Vit D PO 1 tab BID ANNEMARIE Administration Cholecalciferol 1,000 units 11/23/19 09:00 11/24/19 08:52 Vitamin D3 PO 1,000 units DAILY ANNEMARIE Administration Diltiazem HCl 240 mg 11/22/19 21:00 11/23/19 20:44 Cardizem Cd PO 240 mg HS ANNEMARIE Administration Doxazosin Mesylate 1 mg 11/24/19 10:00 11/24/19 10:38 Cardura PO 11/24/19 12:00 1 mg NOW ANNEMARIE Administration Azithromycin 500 mg/ Sodium 250 mls @ 250 mls/hr 11/22/19 20:00 11/23/19 20: 44 Chloride IVPB 250 mls 2000 ANNEMARIE Administration Cefepime HCl 2 gm/ Sodium 100 mls @ 200 mls/hr 11/23/19 04:00 11/24/19 04:05 Chloride IVPB 100 mls 0400,1600 ANNEMARIE Administration Polyethylene Glycol 17 gm 11/23/19 09:00 11/24/19 08:53 Miralax PO Not Given DAILY ANNEMARIE Tramadol HCl 50 mg 11/23/19 07:39 11/23/19 22:44 Ultram PO 50 mg QIDPRN PRN Administration Moderate Pain (4-6) - Exam General Appearance: NAD, awake alert Eye: PERRL, anicteric sclera ENT: normocephalic atraumatic, no oropharyngeal lesions Neck: supple, symmetric, no JVD Heart: RRR, no murmur, no gallops, no rubs Respiratory: CTAB, no wheezes, no rales, no ronchi Gastrointestinal: soft, non-tender, non-distended, normal bowel sounds Extremities: no cyanosis, no clubbing Skin: normal turgor, no lesions Neurological: no focal deficits Musculoskeletal: normal tone, normal strength Psychiatric: normal affect, normal behavior Hosp A/P (1) Acute bronchitis Code(s): J20.9 - ACUTE BRONCHITIS, UNSPECIFIED Status: Acute Qualifiers: Bronchitis organism: unspecified organism Qualified Code(s): J20.9 - Acute bronchitis, unspecified (2) Hypertension Code(s): I10 - ESSENTIAL (PRIMARY) HYPERTENSION Status: Chronic (3) UTI (urinary tract infection) Status: Acute Qualifiers: Urinary tract infection type: acute cystitis (4) Dyslipidemia Code(s): E78.5 - HYPERLIPIDEMIA, UNSPECIFIED Status: Chronic (5) Rheumatoid arthritis Code(s): M06.9 - RHEUMATOID ARTHRITIS, UNSPECIFIED Status: Chronic - Plan old records reviewed/req, plan discussed w/ family, continue antibiotics, respiratory therapy continue cefepime, azithromycin and vancomycin, follow culture, pt has clinical improvement, medication reviewed and continue to provide symptomatic treatment and supportive care 11/24/19- medication reviewed and continue to provide symptomatic treatment and supportive care , follow culture, expecting discharge tomorrow
[2019-11-24] MEDS: Atorvastatin Calcium 20 MG TAB PO SCH (20:52)
[2019-11-24] MEDS: Azithromycin 500 MG in Sodium Chloride 0.9% 250 ML 250 ML IVPB SCH (20:52)
[2019-11-25] MEDS: Cefepime 2 GM in Sodium Chloride 0.9% 100 ML IVPB SCH ×2 (04:47→16:00)
[2019-11-25 05:12] LABS: Anion Gap 13 mmol/L (10-20); BUN (Urea Nitrogen) 13 mg/dL (9.8-20.1); Calc. Creatinine Clearance 47 mL/min (70-130); Calcium 9.8 mg/dL (7.8-10.44); Carbon Dioxide 23 mmol/L (23-31); Chloride 107 mmol/L (98-107); Estimated GFR-MDRD 78; Glucose 91 mg/dL (83-110); Potassium 3.7 mmol/L (3.5-5.1); Sodium 139 mmol/L (136-145)
[2019-11-25 05:45] LABS: #Eosinphils 1.4 thou/uL (0.0-0.7); #Lymphocytes 1.3 thou/uL (1.20-3.40); #Monocytes 0.7 thou/uL (0.11-0.59); #Neutrophils 5.2 thou/uL (1.40-6.50); %Basophils 0.1 % (0.0-1.0); %Eosinophils 16.3 % (0.0-10.0); %Lymphocytes 14.7 % (21.0-51.0); %Monocytes 8.3 % (0.0-10.0); %Neutrophils 60.7 % (42.0-75.0); Hemoglobin 9.8 g/dL (12.0-16.0); Mean Corpuscular Hemoglobin 31.5 pg (27.0-31.0); Mean Corpuscular Volume 92.5 fL (78.0-98.0); Mean Platelet Volume 11.3 fL (7.4-10.4); Platelet Count 170 thou/uL (130-400); RBC Distribution Width 12.3 % (11.5-14.5); Red Blood Cell (RBC) Count 3.12 mill/uL (4.20-5.40); White Blood Cell (WBC) Count 8.5 thou/uL (4.8-10.8)
[2019-11-25] MEDS: Calcium Carbonate + Vit D 1 TAB PO SCH (08:14)
[2019-11-25] MEDS: Aspirin 81 mg Enteric Coated Tablet PO SCH (08:14)
[2019-11-25] MEDS: Polyethylene Glycol 3350 17 GM Packet PO SCH (08:15)
[2019-11-25 08:28] VITALS: BP 153/61; TEMP 97.9
[2019-11-25] MEDS ORDERED: Doxazosin Mesylate 1 MG TAB PO SCH (09:00)
--- NOTE | 2019-11-25 12:00 | DIS ---
DATE OF ADMISSION: 11/22/2019 DATE OF DISCHARGE: 11/25/2019 PRIMARY CARE PHYSICIAN: Dr. Ricco Penn. DISCHARGE DISPOSITION: Home. PRIMARY DISCHARGE DIAGNOSES: 1. Acute bronchitis. 2. Urinary tract infection. SECONDARY DISCHARGE DIAGNOSES: 1. Rheumatoid arthritis. 2. Hypertension. 3. Dyslipidemia. 4. Degenerative joint disease. PRIMARY PROCEDURE/OPERATION: None. RADIOLOGIST INVESTIGATION: Chest x-ray normal. SIGNIFICANT LABORATORY DATA: WBC 8.5, hemoglobin 9.8, and platelet 170. INR 1.0. Sodium 139, potassium 3.7, BUN 13, creatinine 0.71, calcium 9.8. LFT normal. Urinalysis suggestive of UTI. Urine culture grew Proteus. Blood culture negative. Influenza negative. DISCHARGE MEDICATION: Fosamax 70 mg every week, aspirin 81 mg daily calcium with mineral one tablet b.i.d. Cardizem CD 240 mg p.o. at bedtime, Cardura 2 mg daily, Zocor 40 mg at bedtime, tramadol 50 mg q.i.d. p.r.n., Omnicef 300 mg p.o. b.i.d. for 7 days. CONTRAINDICATION: None. CODE STATUS: Full code. INPATIENT MANUSCRIPTS ARCHIVIST: None. ALLERGIES: NO KNOWN DRUG ALLERGIES. DISCHARGE PLAN: Posthospital, the patient will follow up with primary care physician in 7 days. HOSPITAL COURSE: An 83-year-old female who was admitted by Dr. Nieves. Please see his H and P for further details. The patient was having cough and shortness of breath. The patient was found with acute bronchitis. Her chest x-ray was normal. Her urinalysis was consistent with UTI. Her urine culture grew Proteus mirabilis. The patient was treated while in hospital with cefepime, azithromycin and vancomycin and subsequently vancomycin was discontinued. On discharge we changed to Omnicef. The patient was afebrile while in hospital, hemodynamically stable. The patient is seen and examined at bedside today. PHYSICAL EXAMINATION: VITAL SIGNS: Currently, temperature 97.9, pulse 75, respiratory rate 16, saturation 94%, blood pressure 153/61, weight 113 pounds. GENERAL: The patient is currently alert, awake, no acute distress. HEENT: Head normocephalic, atraumatic. Eyes; pupils round, reactive to light. Extraocular muscle intact. ENT: Oropharynx within normal limits. Moist mucous membranes. No oral lesion. No pharyngeal erythema no exudate. NECK: Supple. No JVD. No meningeal signs of irritation. LUNGS: Clear to auscultation without any rhonchi or rales. CARDIAC: S1, S2 regular without any murmur. No gallop. No rub. ABDOMEN: Soft, bowel sounds present. Nontender. Nondistended. No organomegaly. No mass. EXTREMITIES: No edema. NEUROLOGIC: Nonfocal examination. The patient is medically stable for discharge. Job ID: [id number]
--- NOTE | 2019-11-26 05:54 | PQF ---
KETTY FORRESTER SALIM NOORJIBHAI MD [id number] CLINICAL DOCUMENTATION CLARIFICATION FORM: POST DISCHARGE Addendum to original discharge summary date: ____ Late entry note date: __ DATE: 11/26/2019 ATTN:LINA PARKER MD Please exercise your independent, professional judgment in responding to the clarification form. Clinical indicators are provided on the bottom of this form for your review Please check appropriate box(s) to clarify if the following diagnosis has been ruled in or ruled out: SEPSIS [x ] Ruled in diagnosis [ ] Continue to treat [ x ] Resolved [ ] Ruled out diagnosis [ ] Cannot rule out diagnosis [ ] Other diagnosis [ ] Unable to determine For continuity of documentation, please document condition throughout progress notes and discharge summary. Thank You. CLINICAL INDICATORS - SIGNS / SYMPTOMS / LABS - UTI, Pneumonia, Sepsis- ED record, 11/22, Mundo Andersen - WBC: 19.0H- Laboratory 11/22 - Temp: 99.2, Pulse: 78, RR: 20-H&P, 11/22, Ezequiel Romero MD - Acute cystitis-[facility] PN, 11/23, LINA PARKER MD - Her urine culture grew proteus mirabilis- DS, 11/25, LINA PARKER MD RISK FACTORS - Acute bronchitis-H&P, 11/22, Ezequiel Romero MD - Rheumatoid arthritis-[facility] PN, 11/23, LINA PARKER MD TREATMENTS - Maxipime-IV- JAN, 11/22, - Vancomycin.IV- JAN, 11/22 (This form is maintained as a part of the permanent medical record) SAP Questioned Documents Examiner [id number]. All Rights Reserved Dominique Rod [not provided] [not provided] MTDD
== END 2019-11-25 19:19 | disposition home health service (06) | DRG 872 ==
LOC: ERS 02:19 → T4-B 06:34
PROVIDERS: ADMIT Internal Medicine; ATTEND Internal Medicine
DX: A41.9 Sepsis, unspecified organism (principal); N30.00 Acute cystitis without hematuria; J20.9 Acute bronchitis, unspecified; E78.5 Hyperlipidemia, unspecified; M06.9 Rheumatoid arthritis, unspecified; I12.9 Hypertensive chronic kidney disease with stage 1 through stage 4 chronic kidney disease, or unspecified chronic kidney disease; N18.9 Chronic kidney disease, unspecified; M19.90 Unspecified osteoarthritis, unspecified site; G89.29 Other chronic pain; Z87.440 Personal history of urinary (tract) infections
CPT/HCPCS: 36415; 51701; 71045; 80048; 80053; 80202; 81003; 81015; 83605; 83880; 84484; 85025; 85610; 85730; 87040; 87086; 87804; 93005; 94640; 96365; 96367; A4353; J0456; J0692; J3370; J3490; J7050; J7620

== ENCOUNTER 2019-11-28 20:33 | Inpatient (IN) | payer MEDICARE, OTHER ==
[2019-11-28 21:21] LABS: Band 6 % (5-11); Eosinophils 7 % (0-10); Hemoglobin 11.2 g/dL (12.0-16.0); Lymphocytes 6 % (21-51); MDiff Complete? YES; Mean Corpuscular HGB CONC 33.2 g/dL (32.0-36.0); Mean Corpuscular Hemoglobin 30.5 pg (27.0-31.0); Mean Corpuscular Volume 91.8 fL (78.0-98.0); Monocytes 1 % (0-10); Neutrophil 80 % (42-75); Platelet Count 211 thou/uL (130-400); Platelet Morphology Comment Appears Adequate; RBC Distribution Width 12.4 % (11.5-14.5); Red Blood Cell (RBC) Count 3.68 mill/uL (4.20-5.40); White Blood Cell (WBC) Count 19.5 thou/uL (4.8-10.8)
[2019-11-28 21:31] LABS: ALT (SGPT) 12 U/L (8-55); AST (SGOT) 18 U/L (5-34); Albumin 3.9 g/dL (3.4-4.8); Alkaline Phosphatase 94 U/L (40-110); Anion Gap 14 mmol/L (10-20); BUN (Urea Nitrogen) 23 mg/dL (9.8-20.1); Bilirubin, Total 0.5 mg/dL (0.2-1.2); Calc. Creatinine Clearance 0 mL/min (70-130); Calcium 9.7 mg/dL (7.8-10.44); Carbon Dioxide 24 mmol/L (23-31); Chloride 102 mmol/L (98-107); Estimated GFR-MDRD 58; Globulin 3.1 g/dL (2.4-3.5); Glucose 122 mg/dL (83-110); Sodium 136 mmol/L (136-145)
[2019-11-28] MEDS ORDERED: Acetaminophen 325 MG TAB ONE (21:46)
[2019-11-28] MEDS ORDERED: Cefepime 2 GM VIAL ONE (21:46)
[2019-11-28] MEDS ORDERED: Sodium Chloride 0.9% 100 ML ONE (21:46)
[2019-11-28 21:53] LABS: CKMB 1.7 ng/mL (0-6.6)
[2019-11-28 21:56] LABS: Clarity Clear (Clear); Glucose, Urine (Dipstick) Normal (Negative); Leukocyte 250 Leu/uL (Negative); Nitrite Negative (Negative); Protein, Urine (Dipstick) 30 mg/dL (Neg-Trace)
[2019-11-28 21:57] LABS: Bacteria/HPF 2+ HPF (None Seen); Bilirubin Negative (Negative); Blood, Urine Negative (Negative); Mucous/LPF Rare LPF (<2+); RBC/HPF 0-3 HPF (0-3); Squamous Epithelial 0-3 HPF (0-3); Urobilinogen Normal mg/dL (Less than 2); WBC/HPF 21-50 HPF (0-3)
--- NOTE | 2019-11-28 22:27 | RAD ---
EXAM: CHEST ONE VIEW HISTORY: Difficulty breathing, cough COMPARISON: 11/22/2019 FINDINGS: Cardiac silhouette is magnified by projection. Pulmonary vasculature is within normal limits. Perihil ar interstitial densities appear slightly more prominent than on the prior exam which could be related to technique, but an element of mild pulmonary edema is a possibility. There is no consolidat ion or pleural effusion seen. Right-sided rib fractures are again identified which are unchanged compared to a study on 10/10/2019. No other interval change. IMPRESSION: Mild prominence of the perihilar interstitial densities likely a factor of the technique of the exam. Element of mild pulmonary edema cannot be entirely excluded.
[2019-11-28] MEDS ORDERED: Aspirin Chewable 81 MG TAB ONE (22:31)
[2019-11-29] MEDS ORDERED: Ondansetron PF 4 MG/2 ML Vial IVP PRN (00:43)
[2019-11-29] MEDS ORDERED: Sodium Chloride 0.9% 1,000 ML IV SCH (00:43)
[2019-11-29] MEDS ORDERED: Acetaminophen 325 MG TAB PO PRN ×2 (00:43→09:11)
[2019-11-29] MEDS ORDERED: Ondansetron ODT 4 MG TAB SL PRN (00:43)
[2019-11-29 00:52] VITALS: BMI 21.7
[2019-11-29 01:31] LABS: Troponin I 0.036 ng/mL (< 0.028)
[2019-11-29 03:40] LABS: Troponin I 0.033 ng/mL (< 0.028)
[2019-11-29] MEDS ORDERED: FLU VACC TS2019-20(65YR UP)/PF 180 MCG/0.5 ML SYRINGE IM ONE (09:00)
[2019-11-29] MEDS ORDERED: traMADol HCl 50 MG TAB PO PRN (09:11)
[2019-11-29] MEDS ORDERED: Senokot S 8.6-50 MG TAB PO PRN (09:11)
[2019-11-29] MEDS ORDERED: Bisacodyl 10 MG SUPP PR PRN (09:11)
[2019-11-29] MEDS ORDERED: Guaifenesin DM 100-10/5 ML UDCUP PO PRN (09:11)
[2019-11-29] MEDS ORDERED: Cefepime 2 GM in Sodium Chloride 0.9% 100 ML IVPB SCH (10:00)
[2019-11-29] MEDS ORDERED: cefTRIAXone\\ROCEPHIN 1 GM in Sodium Chloride 0.9% 100 ML IVPB SCH (10:00)
[2019-11-29] MEDS: Sodium Chloride 0.9% 1,000 ML IV SCH ×2 (10:01→16:14)
--- NOTE | 2019-11-29 12:00 | CON ---
DATE OF CONSULTATION: 11/29/2019 REASON FOR CONSULTATION: Shortness of breath and leukocytosis. HISTORY OF PRESENT ILLNESS: An 83-year-old with history of hypertension, post herpetic neuralgia, and severe aortic stenosis as well as bladder prolapse, whom we had seen in June 2019 when she presented with an invasive UTI due to quite susceptible E. coli with bacteremia. CT of the abdomen did not show any structural abnormalities or obstruction. I believe she did not have significant urinary retention. After that in September, she presented with increasing dyspnea, peripheral edema. A CTA did not show any pulmonary embolism. She was discharged on aspirin with a followup scheduled with Dr. Morales for possible TAVR procedure. She was given ceftriaxone and cefpodoxime for positive urine cultures and then recently she was readmitted with dyspnea again, this was associated with a dry cough and she had hypoxemia on arrival. There exam showed a BP 112/60, pulse 78, respirations 20, O2 saturation 99% room air, temperature 99.2. Lungs sounds are described with expiratory wheezing and a chest x-ray did not show pulmonary infiltrates. Her white cell count is elevated at 19,000. Cultures with negative blood sample cultures and positive Proteus mirabilis in the urine sample from November 22, less than 5000 CFUs per mL and urinalysis with greater than 50 wbc's in November 22. She was discharged on Fosamax, Cardizem, Cardura, Zocor, tramadol, Omnicef. The Omnicef was prescribed for 7 days. Now she comes back according to the because of the same symptoms that she had that led to the most recent admission with dyspnea and heavy breathing in his own words. She had some cough and also noted rhinorrhea. No fever was documented. She has urinary incontinence, but did not complain of dysuria. She was still taking the Omnicef that had been prescribed. No sputum production. No back pain or joint symptoms or skin disorder. PAST MEDICAL HISTORY: Hypertension, hyperlipidemia, post herpetic neuralgia, severe hearing impairment, degenerative joint disease, severe aortic stenosis, in need for TAVR as per Dr. Morales, bladder prolapse, recurrent urinary tract colonization with one episode of invasive urinary tract infection in June with susceptible E. coli. SURGICAL HISTORY: Skin cancer removal, strabismus correction, EGD. ALLERGIES: NONE. SOCIAL HISTORY: Former smoker until 20 years ago, , lives in [place] with . FAMILY HISTORY: Coronary artery disease. CURRENT MEDICATIONS: 1. Ceftriaxone. 2. Atorvastatin. 3. Diltiazem. 4. Doxazosin. 5. Doxycycline. 6. Lovenox. 7. Pepcid. PHYSICAL EXAMINATION: VITAL SIGNS: She has been afebrile, T-max 99, BP 120/59, pulse 82, respirations 16, O2 saturation is 92% just recently on room air. SKIN: Without any areas of skin breakdown, patient has a diaper and she has a peripheral IV access. No lymphadenopathy. HEENT: Ocular movements conjugate. Pupils are equal. Oral cavity with quite a few missing teeth. NECK: Supple. LUNGS: With symmetric breath sounds with faint basilar crackles. HEART: S1-S2 with a harsh systolic murmur at the base. No S3. ABDOMEN: Soft, not distended or tender. No ascites. No bladder distention. MUSCULOSKELETAL: No joint inflammatory activity. Pulses 1+ in dorsalis pedis. Plantar responses are flexor. NEURO: Marked hearing impairment. She seems to be oriented and follows commands. LABORATORY STUDIES: White cell count again 19.5, hemoglobin 11, platelets 211, with 80% neutrophils, 6% bands, 6% lymphocytes. Creatinine 0.92. Liver profile normal. Albumin 3.9. Urinalysis with 21 to 50 wbc's. Two sets of pending blood cultures. Chest repeat with mild prominence of perihilar interstitial densities. Last echocardiogram with EF 60% to 65%, severe aortic stenosis. ASSESSMENT: 1. Severe aortic stenosis, in need for replacement. 2. Recurrent episodes of dyspnea with hypoxemia. 3. Neutrophilia. 4. Abnormal urinalysis with bladder prolapse. DISCUSSION: The last two admissions are more likely to be due to the severe aortic stenosis and pulmonary edema than an invasive UTI. She was still receiving the antimicrobial that she had been discharged and I do not believe she had significant urinary tract process then. In view of the low levels of bacterial colonization and the absence of obstruction per latest imaging of the abdomen, she remains afebrile and with negative occult blood cultures, I would discontinue antimicrobial therapy and focus on the management of the aortic stenosis, she will most likely continue to experience the readmissions for episodes of early pulmonary edema. Thromboembolism has been ruled out in the last admission. Job ID: [id number] [facility]
[2019-11-29 14:22] LABS: Ref Lab Test Ordered RVP PCR; Reference Lab Name LABCORP
--- NOTE | 2019-11-29 15:45 | HP ---
REASON FOR ADMISSION: Aortic stenosis with near syncope, elevated white blood cell, possibly colonized UTI. HISTORY OF PRESENTING ILLNESS: The patient gives history of breathing very heavy yesterday evening. Whole day she had trouble breathing, but this just got worse by the evening. Her at bedside says she almost passed out that is when he called EMS. No complaints of chest pain or palpitation. Has no complaints of burning urination. No fever at home. The patient has dry cough, but no expectoration. PAST MEDICAL AND SURGICAL HISTORY: History of severe aortic stenosis with valve area of around 0.8 cm2, history of recurrent UTIs, dyslipidemia, hypertension, history of rheumatoid arthritis, history of postherpetic neuralgia, osteoarthritis, chronic back pain, skin cancer removals, left eye strabismus correction, prior EGD. CURRENT MEDICATIONS: The patient is on; 1. Alendronate 70 mg once weekly. 2. Aspirin 81 mg p.o. daily. 3. Calcium with minerals one tablet twice daily. 4. Cardizem CD 240 mg p.o. at bedtime. 5. Cardura 1 mg p.o. daily. 6. Simvastatin 40 mg p.o. at bedtime. 7. Ultram p.r.n. for pain. 8. Omnicef 300 mg p.o. twice daily. ALLERGIES: NO KNOWN DRUG ALLERGIES. PERSONAL HISTORY: Does not abuse alcohol or drugs. No history of smoking. FAMILY HISTORY: Father had history of [place], mother had history of stroke. Mother lived up to 85. Father lived up to 65. CODE STATUS: Full. Power of business attorney is her . The patient normally ambulates with a walker. REVIEW OF SYSTEMS: CONSTITUTIONAL: Negative for weight loss or gain, ability to conduct usual activities. SKIN: Negative for rash, itching. EYES: Negative for double vision, pain. ENT/MOUTH: Negative for nose bleeding, neck stiffness, pain, tenderness. CARDIOVASCULAR: Negative for palpitations, dyspnea on exertion, orthopnea. RESPIRATORY: Negative for shortness of breath, wheezing, cough, hemoptysis, fever or night sweats. GASTROINTESTINAL: Negative for poor appetite, abdominal pain, heartburn, nausea , vomiting, constipation, or diarrhea. GENITOURINARY: Negative for urgency, frequency, dysuria, nocturia. MUSCULOSKELETAL: Negative for pain, swelling. NEUROLOGIC/PSYCHIATRIC: Negative for anxiety, depression. ALLERGY/IMMUNOLOGIC: Negative for skin rash, bleeding tendency. PHYSICAL EXAMINATION: GENERAL: The patient is an 83-year-old female, who is currently not in any acute distress. VITAL SIGNS: Blood pressure 110/46, pulse is 90 per minute, respiratory rate 22 per minute, temperature 100.1 degrees Fahrenheit, saturating 94% on room air. NECK: Supple. No elevated JVD. HEENT: Eyes; extraocular muscles intact. Pupils are reacting to light. Oral cavity, mucous membranes are dry. No exudates or congestion. CARDIOVASCULAR SYSTEM: S1 and S2 heard. Murmur plus. RESPIRATORY SYSTEM: Air entry 1+ bilateral. Scattered rhonchi plus. No rales or wheezes. ABDOMEN: Soft. Bowel sounds heard. No tenderness, rigidity, or guarding. EXTREMITIES: No peripheral edema. No calf tenderness. VASCULAR SYSTEM: Peripheral pulses 1+ bilateral. No ischemic ulcerations or gangrene. CENTRAL NERVOUS SYSTEM: No gross focal deficits noted. The patient is lethargic, but oriented well. PSYCHIATRIC: The patient's mood is euthymic. No hallucinations or delusions. LABORATORY DATA: Chest x-ray done shows no obvious infiltrate when compared to prior chest x-rays. White count of 19, hemoglobin and hematocrit are 11 and 33, platelet count 211, MCV is 91, with 80% neutrophils. BUN is 23, creatinine 0.9, serum glucose 122. Electrolytes stable. Serum bicarb 24. Liver enzymes within normal limits. Albumin is 3.9. BNP is 45. EKG done shows sinus rhythm at 95 beats per minute. There are signs of LVH seen. CLINICAL IMPRESSION AND PLAN: The patient will be admitted to telemetry for near-syncope with history of severe aortic stenosis with valve area of around 0.8 cm2. I have discussed her findings with Dr. Morales. The patient in fact has a followup appointment to discuss further plans for her aortic stenosis with Dr. Morales on the or so this month. She was recently hospitalized for urinary tract infection and acute metabolic encephalopathy. We will continue her aspirin, Lipitor, gentle hydration with normal saline at 60 mL/hour. We will continue her aspirin, Lipitor, Cardizem CD, doxazosin as before. She will be on ceftriaxone and doxycycline. We will consult Dr. Mena, who has evaluated her in the past. This is in view of recurrent urinary tract infections, growing similar organism, mostly Escherichia coli with similar sensitivities. Last culture here on the 3rd grew Proteus, which was less than 5000 colony-forming units per mL. Her overall prognosis is guarded. The patient and at bedside want to be full code for now. We will obtain Palliative Care consultation as well. Job ID: [id number] MTDD
--- NOTE | 2019-11-29 17:20 | CON ---
DATE OF CONSULTATION: 11/29/2019 REASON FOR CONSULTATION: Aortic stenosis. PRIMARY HOT BRAIDER: He Morales MD HISTORY OF PRESENT ILLNESS: Mrs. Bran is a very pleasant 83-year-old white female, who comes to the hospital for worsening shortness of breath and presyncope. She was admitted about a month or 2 ago here in the hospital with a UTI. An echocardiogram was done and was found to have severe aortic stenosis. I followed up with her actually 2 days ago, and we had already set her up for left heart catheterization in preparation for TAVR to send her to [place] with Dr. Willams. She was scheduled for later this month. She comes in as she started getting worsening shortness of breath. Yesterday, her noticed that she was presyncopal, so he called 911, and they brought her in for further evaluation. Currently, Ms. Bran is doing a lot better. Her breathing is much more stable, and she is not having any syncope or presyncope. PAST MEDICAL HISTORY: 1. Severe aortic stenosis with valve area of 0.8 cm2 with a mean gradient of 40 mmHg. 2. Recurrent UTIs. 3. Hyperlipidemia. 4. Hypertension. 5. Rheumatoid arthritis. 6. Postherpetic neuralgia. 7. Osteoarthritis. 8. Chronic back pain. 9. Skin cancer removal. 10. Left eye strabismus, status post correction. 11. EGD in the past. OUTPATIENT MEDICATIONS: 1. Alendronate 70 mg weekly. 2. Aspirin 81 a day. 3. Calcium with vitamin D. 4. Cardizem CD 240 mg a day. 5. Cardura 1 mg a day. 6. Simvastatin 40 mg a day. 7. Ultram p.r.n. 8. Omnicef. ALLERGIES: NO KNOWN DRUG ALLERGIES. SOCIAL HISTORY: No alcohol, tobacco, or drugs. FAMILY HISTORY: Father with an ID. REVIEW OF SYSTEMS: A 12-point review of systems was done, it is all negative unless stated in the history of present illness. PHYSICAL EXAMINATION: VITAL SIGNS: Temperature 98.0, pulse 75, respiratory rate 12, saturating 94% on room air, blood pressure 130/60. GENERAL: Awake, alert, and oriented x3. No distress. HEENT: Normocephalic and atraumatic. NECK: Supple. LUNGS: Clear. CARDIOVASCULAR: S1, S2. No S3 or S4. There is a grade 3/6 systolic murmur at the right upper sternal border late-peaking. ABDOMEN: Soft. Positive bowel sounds. EXTREMITIES: Trace edema. SKIN: Warm and dry. LABORATORY DATA: Laboratory work was reviewed. White count of 19, hemoglobin of 11, hematocrit of 33, platelet count of 211. Chemistries were unremarkable. Troponin 0.05, 0.03, and 0.03. UA with white cells, 2+ bacteria. Urine culture is negative at 12 hours. Blood culture is negative so far. IMAGING STUDIES: Chest x-ray was reviewed. ASSESSMENT/PLAN: 1. Severe aortic stenosis, appears to be symptomatic. 2. Urine colonization. Does not appear to be an active urinary tract infection. PLAN: 1. Certainly, we will plan on doing a left heart catheterization inpatient to see what the next step will be as far as valve replacement goes. If her heart catheterization reveals stentable disease, we will place a drug-eluting stent and send her to [place] for TAVR. If her disease is severe, that she may require bypass surgery, she will get a valve replacement at that time. She is 83 years old and may not be interested in this. 2. We have spoken at length with the risks and benefits of the procedure. See my note from the office for consent. We consented her in the office for this. 3. Further recommendations per results of coronary angiogram, which will happen on Monday. Right groin access. Left heart cath only as she has severe aortic stenosis by echo, so contraindicated to cross the valve at this point. Thank you for letting us to participate in the care of patient. We will follow. Job ID: [id number]
[2019-11-29] MEDS ORDERED: Famotidine 20 MG TAB PO SCH (21:00)
[2019-11-29] MEDS ORDERED: Doxycycline 100 MG CAP PO SCH (21:00)
[2019-11-29] MEDS: Atorvastatin Calcium 20 MG TAB PO SCH (21:15)
[2019-11-30 04:59] LABS: #Eosinphils 1.7 thou/uL (0.0-0.7); #Lymphocytes 1.6 thou/uL (1.20-3.40); #Monocytes 0.6 thou/uL (0.11-0.59); #Neutrophils 5.6 thou/uL (1.40-6.50); %Basophils 0.2 % (0.0-1.0); %Eosinophils 17.9 % (0.0-10.0); %Lymphocytes 16.8 % (21.0-51.0); %Monocytes 6.5 % (0.0-10.0); %Neutrophils 58.6 % (42.0-75.0); Hemoglobin 9.4 g/dL (12.0-16.0); Mean Corpuscular HGB CONC 32.1 g/dL (32.0-36.0); Mean Corpuscular Hemoglobin 29.9 pg (27.0-31.0); Mean Platelet Volume 12.1 fL (7.4-10.4); Platelet Count 192 thou/uL (130-400); RBC Distribution Width 12.4 % (11.5-14.5); Red Blood Cell (RBC) Count 3.13 mill/uL (4.20-5.40); White Blood Cell (WBC) Count 9.5 thou/uL (4.8-10.8)
[2019-11-30 05:11] LABS: Anion Gap 10 mmol/L (10-20); BUN (Urea Nitrogen) 15 mg/dL (9.8-20.1); Calc. Creatinine Clearance 49 mL/min (70-130); Calcium 8.9 mg/dL (7.8-10.44); Carbon Dioxide 24 mmol/L (23-31); Chloride 109 mmol/L (98-107); Estimated GFR-MDRD 81; Glucose 91 mg/dL (83-110); Potassium 3.8 mmol/L (3.5-5.1); Sodium 139 mmol/L (136-145)
[2019-11-30] MEDS: Aspirin 81 mg Enteric Coated Tablet PO SCH (09:33)
[2019-11-30] MEDS: Doxazosin 2 MG TAB PO SCH (09:34)
[2019-11-30] MEDS: Enoxaparin Sodium 40 MG/0.4 ML SYRINGE SC SCH (09:34)
--- NOTE | 2019-11-30 15:12 | PDOC.HOSPP ---
- Subjective Encounter Date: 11/30/19 Encounter Time: 15:11 Subjective: Doing ok. Just feels tired. No other complaints. - Objective Vital Signs & Weight: Vital Signs (12 hours) Temp Pulse Pulse Resp BP BP Pulse Ox 11/30/19 11:25 97.3 F L 69 16 143/65 H 94 L 11/30/19 10:50 79 169/72 H 11/30/19 07:51 97.7 F 93 16 178/74 H 93 L 11/30/19 03:29 98.6 F 77 21 H 160/69 H 95 Weight Admit Weight 115 lb Weight 115 lb I&O: 11/29/19 11/30/19 12/01/19 06:59 06:59 06:59 Intake Total 1500 960 Output Total 650 1200 Balance 850 -240 Result Diagrams: 11/30/19 04:06 11/30/19 04:06 Hospitalist ROS - Medication Medications: Active Medications Generic Name Dose Route Start Last Admin Trade Name Freq PRN Reason Stop Dose Admin Aspirin 81 mg 11/30/19 09:00 11/30/19 09:33 Ecotrin PO 81 mg DAILY ANNEMARIE Administration Atorvastatin Calcium 20 mg 11/29/19 21:00 11/29/19 21:15 Lipitor PO 20 mg HS ANNEMARIE Administration Diltiazem HCl 240 mg 11/30/19 09:00 11/30/19 09:34 Cardizem Cd PO 240 mg DAILY ANNEMARIE Administration Doxazosin Mesylate 1 mg 11/30/19 09:00 11/30/19 09:34 Cardura PO 1 mg DAILY ANNEMARIE Administration Enoxaparin Sodium 40 mg 11/30/19 09:00 11/30/19 09:34 Lovenox SC 40 mg 0900 ANNEMARIE Administration Sodium Chloride 1,000 mls @ 60 mls/hr 11/29/19 09:15 11/29/19 16:14 Normal Saline 0.9% IV 1,000 mls .[id number] ANNEMARIE Administration - Exam General Appearance: NAD, awake alert Heart: RRR, no gallops, no rubs, normal peripheral pulses, III/IV Respiratory: CTAB, no wheezes, no rales, no ronchi, normal chest expansion, no tachypnea, normal percussion Gastrointestinal: soft, non-tender, non-distended, normal bowel sounds, no palpable masses, no hepatomegaly, no splenomegaly, no bruit Extremities: no cyanosis, no clubbing, no edema Skin: normal turgor Psychiatric: normal affect Hosp A/P (1) Severe aortic stenosis Code(s): I35.0 - NONRHEUMATIC AORTIC (VALVE) STENOSIS Status: Acute (2) Syncope Code(s): R55 - SYNCOPE AND COLLAPSE Status: Acute (3) DJD (degenerative joint disease) Code(s): M19.90 - UNSPECIFIED OSTEOARTHRITIS, UNSPECIFIED SITE Status: Chronic (4) Dyslipidemia Code(s): E78.5 - HYPERLIPIDEMIA, UNSPECIFIED Status: Chronic (5) Hypertension Code(s): I10 - ESSENTIAL (PRIMARY) HYPERTENSION Status: Chronic (6) Rheumatoid arthritis Code(s): M06.9 - RHEUMATOID ARTHRITIS, UNSPECIFIED Status: Chronic (7) Chronic anemia Code(s): D64.9 - ANEMIA, UNSPECIFIED Status: Acute - Plan Stopped abx per recommendation of ID. Continue supportive care. Heart cath on Monday with follow up plan for surg or AoV or AoV + CABG.
--- NOTE | 2019-11-30 16:52 | PDOC.CPN ---
- Subjective Date: 11/30/19 Time: 16:50 Interval history: Doing well. Feeling tired. Hard time hearing as the battery on her hearing aid is out. - Review of Systems General: reports: fatigue. denies: fever/chills, weight/appetite/sleep changes , night sweats Respiratory: denies: cough, congestion, shortness of breath, exercise intolerance Cardiovascular: denies: chest pain, palpitation, edema, paroxysmal nocturnal dyspnea, orthopnea Gastrointestinal: denies: nausea, vomiting, diarrhea, constipation, abd pain, GI bleeding Musculoskeletal: denies: pain, tenderness, stiffness, swelling, arthritis/ arthralgias Neurological: denies: numbness, syncope, seizure, weakness - Objective Allergies/Adverse Reactions: Allergies Allergy/AdvReac Type Severity Reaction Status Date / Time No Known Allergies Allergy Verified 11/22/19 20:05 Visit Medications: Current Medications Acetaminophen (Tylenol) 650 mg PO Q4H PRN PRN Reason: Headache/Fever/Mild Pain (1-3) Aspirin (Ecotrin) 81 mg PO DAILY [facility] Last Admin: 11/30/19 09:33 Dose: 81 mg Atorvastatin Calcium (Lipitor) 20 mg PO HS [facility] Last Admin: 11/29/19 21:15 Dose: 20 mg Bisacodyl (Dulcolax) 10 mg [place] DAILYPRN PRN PRN Reason: Constipation Diltiazem HCl (Cardizem Cd) 240 mg PO DAILY [facility] Last Admin: 11/30/19 09:34 Dose: 240 mg Doxazosin Mesylate (Cardura) 1 mg PO DAILY [facility] Last Admin: 11/30/19 09:34 Dose: 1 mg Enoxaparin Sodium (Lovenox) 40 mg SC 0900 [facility] Last Admin: 11/30/19 09:34 Dose: 40 mg Famotidine (Pepcid) 20 mg PO 2100 [facility] Guaifenesin/Dextromethorphan (Robitussin Dm) 15 ml PO Q4H PRN PRN Reason: Cough Sodium Chloride (Normal Saline 0.9%) 1,000 mls @ 60 mls/hr IV .[id number] [facility] Last Admin: 11/29/19 16:14 Dose: 1,000 mls Senna/Docusate Sodium (Senokot S) 2 tab PO BID PRN PRN Reason: Constipation Tramadol HCl (Ultram) 50 mg PO QID PRN PRN Reason: Pain Vital Signs & Weight: Vital Signs Temp Pulse Pulse Resp BP BP Pulse Ox 11/30/19 15:08 97.7 F 65 16 121/58 L 93 L 11/30/19 11:25 97.3 F L 69 16 143/65 H 94 L 11/30/19 10:50 79 169/72 H 11/30/19 07:51 97.7 F 93 16 178/74 H 93 L Admit Weight 115 lb Weight 115 lb - Physical Exam General: alert & oriented x3 HEENT: mucus membranes moist Neck: supple neck Cardiac: regular rate and rhythm, systolic murmur Lungs: clear to auscultation Neuro: grossly intact Abdomen: active bowel sounds Extremities: no edema Skin: clear Musculoskeletal: no pain - Labs Result Diagrams: 11/30/19 04:06 11/30/19 04:06 Troponin/CKMB CK-MB (CK-2) 1.7 ng/mL (0-6.6) 11/28/19 21:04 Troponin I 0.033 ng/mL (< 0.028) H 11/29/19 03:01 - Telemetry Sinus rhythms and dysrhythmias: sinus rhythm - Assessment/Plan Assessment/Plan: 1. Severe aortic valve stenosis. 2. urine colonization 3. Presyncope. PLAN: - Plan for LHC with possible PCI Monday in preparation for TAVR versus SAVR.
[2019-11-30] MEDS: Sodium Chloride 0.9% 1,000 ML IV SCH (21:09)
[2019-11-30] MEDS: Famotidine 20 MG TAB PO SCH (21:10)
[2019-11-30] MEDS: Atorvastatin Calcium 20 MG TAB PO SCH (21:10)
[2019-12-01] MEDS: Aspirin 81 mg Enteric Coated Tablet PO SCH (09:11)
[2019-12-01] MEDS: Doxazosin 2 MG TAB PO SCH (09:12)
[2019-12-01] MEDS: Enoxaparin Sodium 40 MG/0.4 ML SYRINGE SC SCH (09:12)
[2019-12-01] MEDS: Sodium Chloride 0.9% 1,000 ML IV SCH ×2 (12:19→21:01)
--- NOTE | 2019-12-01 15:52 | PDOC.HOSPP ---
- Subjective Subjective: Doing ok. Got up and around a little. Feels a little better. No complaints. Understands the plan. - Objective Vital Signs & Weight: Vital Signs (12 hours) Temp Pulse Resp BP Pulse Ox 12/01/19 11:25 98.4 F 65 16 129/63 96 12/01/19 07:40 97.5 F L 58 L 16 162/72 H 98 Weight Admit Weight 115 lb Weight 115 lb I&O: 11/30/19 12/01/19 12/02/19 06:59 06:59 06:59 Intake Total 1500 1920 Output Total 650 2000 Balance 850 -80 Result Diagrams: 11/30/19 04:06 11/30/19 04:06 Hospitalist ROS - Medication Medications: Active Medications Generic Name Dose Route Start Last Admin Trade Name Freq PRN Reason Stop Dose Admin Aspirin 81 mg 11/30/19 09:00 12/01/19 09:11 Ecotrin PO 81 mg DAILY ANNEMARIE Administration Atorvastatin Calcium 20 mg 11/29/19 21:00 11/30/19 21:10 Lipitor PO 20 mg HS ANNEMARIE Administration Diltiazem HCl 240 mg 11/30/19 09:00 12/01/19 09:11 Cardizem Cd PO 240 mg DAILY ANNEMARIE Administration Doxazosin Mesylate 1 mg 11/30/19 09:00 12/01/19 09:12 Cardura PO 1 mg DAILY ANNEMARIE Administration Enoxaparin Sodium 40 mg 11/30/19 09:00 12/01/19 09:12 Lovenox SC 40 mg 0900 ANNEMARIE Administration Famotidine 20 mg 11/30/19 21:00 11/30/19 21:10 Pepcid PO 20 mg 2100 ANNEMARIE Administration Sodium Chloride 1,000 mls @ 60 mls/hr 11/29/19 09:15 12/01/19 12:19 Normal Saline 0.9% IV Not Given .[id number] ANNEMARIE - Exam General Appearance: NAD, awake alert Heart: RRR, II/IV Respiratory: CTAB, no wheezes, no rales, no ronchi, normal chest expansion, no tachypnea, normal percussion Gastrointestinal: soft, non-tender, non-distended, normal bowel sounds, no palpable masses, no hepatomegaly, no splenomegaly, no bruit Extremities: no cyanosis, no clubbing, no edema Neurological: no focal deficits Musculoskeletal: normal tone Psychiatric: normal affect, normal behavior, A&O x 3 Hosp A/P (1) Severe aortic stenosis Code(s): I35.0 - NONRHEUMATIC AORTIC (VALVE) STENOSIS Status: Chronic (2) Syncope Code(s): R55 - SYNCOPE AND COLLAPSE Status: Acute (3) DJD (degenerative joint disease) Code(s): M19.90 - UNSPECIFIED OSTEOARTHRITIS, UNSPECIFIED SITE Status: Chronic (4) Dyslipidemia Code(s): E78.5 - HYPERLIPIDEMIA, UNSPECIFIED Status: Chronic (5) Hypertension Code(s): I10 - ESSENTIAL (PRIMARY) HYPERTENSION Status: Chronic (6) Rheumatoid arthritis Code(s): M06.9 - RHEUMATOID ARTHRITIS, UNSPECIFIED Status: Chronic (7) Chronic anemia Code(s): D64.9 - ANEMIA, UNSPECIFIED Status: Chronic - Plan Stopped abx per recommendation of ID. Continue supportive care. Heart cath on Monday with follow up plan for surg or AoV or AoV + CABG. Continue home meds.
--- NOTE | 2019-12-01 16:36 | PDOC.CPN ---
- Subjective Date: 12/01/19 Time: 16:35 Interval history: She is doing well. No new issues. - Review of Systems General: denies: fever/chills, weight/appetite/sleep changes, night sweats, fatigue Respiratory: denies: cough, congestion, shortness of breath, exercise intolerance Cardiovascular: denies: chest pain, palpitation, edema, paroxysmal nocturnal dyspnea, orthopnea Gastrointestinal: denies: nausea, vomiting, diarrhea, constipation, abd pain, GI bleeding Musculoskeletal: denies: pain, tenderness, stiffness, swelling, arthritis/ arthralgias Neurological: denies: numbness, syncope, seizure, weakness - Objective Allergies/Adverse Reactions: Allergies Allergy/AdvReac Type Severity Reaction Status Date / Time No Known Allergies Allergy Verified 11/22/19 20:05 Visit Medications: Current Medications Acetaminophen (Tylenol) 650 mg PO Q4H PRN PRN Reason: Headache/Fever/Mild Pain (1-3) Aspirin (Ecotrin) 81 mg PO DAILY [facility] Last Admin: 12/01/19 09:11 Dose: 81 mg Atorvastatin Calcium (Lipitor) 20 mg PO HS [facility] Last Admin: 11/30/19 21:10 Dose: 20 mg Bisacodyl (Dulcolax) 10 mg DC DAILYPRN PRN PRN Reason: Constipation Diltiazem HCl (Cardizem Cd) 240 mg PO DAILY [facility] Last Admin: 12/01/19 09:11 Dose: 240 mg Doxazosin Mesylate (Cardura) 1 mg PO DAILY [facility] Last Admin: 12/01/19 09:12 Dose: 1 mg Enoxaparin Sodium (Lovenox) 40 mg SC 0900 [facility] Last Admin: 12/01/19 09:12 Dose: 40 mg Famotidine (Pepcid) 20 mg PO 2100 [facility] Last Admin: 11/30/19 21:10 Dose: 20 mg Guaifenesin/Dextromethorphan (Robitussin Dm) 15 ml PO Q4H PRN PRN Reason: Cough Sodium Chloride (Normal Saline 0.9%) 1,000 mls @ 60 mls/hr IV .[id number] [facility] Last Admin: 12/01/19 12:19 Dose: Not Given Senna/Docusate Sodium (Senokot S) 2 tab PO BID PRN PRN Reason: Constipation Tramadol HCl (Ultram) 50 mg PO QID PRN PRN Reason: Pain Vital Signs & Weight: Vital Signs Temp Pulse Pulse Resp BP BP Pulse Ox 12/01/19 15:08 67 130/58 L 12/01/19 11:25 98.4 F 65 16 129/63 96 12/01/19 07:40 97.5 F L 58 L 16 162/72 H 98 Admit Weight 115 lb Weight 115 lb - Physical Exam General: alert & oriented x3 HEENT: mucus membranes moist Neck: supple neck Cardiac: regular rate and rhythm Lungs: normal breath sounds Neuro: grossly intact Abdomen: active bowel sounds Extremities: no edema Skin: clear Musculoskeletal: normal range of motion - Labs Result Diagrams: 11/30/19 04:06 11/30/19 04:06 Troponin/CKMB CK-MB (CK-2) 1.7 ng/mL (0-6.6) 11/28/19 21:04 Troponin I 0.033 ng/mL (< 0.028) H 11/29/19 03:01 - Telemetry Sinus rhythms and dysrhythmias: sinus rhythm - Assessment/Plan Assessment/Plan: 1. Severe aortic valve stenosis. 2. Urine colonization 3. Presyncope. PLAN: - Plan for LHC with possible PCI Tomorrow in preparation for TAVR versus SAVR.
[2019-12-01] MEDS ORDERED: Communication Order-Pharmacy FS SCH (16:45)
[2019-12-01] MEDS: Atorvastatin Calcium 20 MG TAB PO SCH (21:01)
[2019-12-01] MEDS: Famotidine 20 MG TAB PO SCH (21:01)
[2019-12-02] MEDS: Doxazosin 2 MG TAB PO SCH (06:04)
[2019-12-02] MEDS: Aspirin 81 mg Enteric Coated Tablet PO SCH (06:04)
[2019-12-02] MEDS ORDERED: Heparin (Artline) 1,000 ML ONE (08:55)
[2019-12-02] MEDS ORDERED: Fentanyl 100 MCG/2 ML VIAL ONE (08:56)
[2019-12-02] MEDS ORDERED: Midazolam HCl 2 mg/2 ml Vial ONE (08:56)
[2019-12-02] MEDS ORDERED: Nitroglycerin 0.4 MG TAB (25 Tab Bottle) SL PRN (09:59)
[2019-12-02] MEDS ORDERED: Acetaminophen/Codeine 30-300mg Tablet PO PRN (09:59)
[2019-12-02] MEDS ORDERED: Sodium Chloride 0.9% 200 ML IV PRN (09:59)
[2019-12-02] MEDS ORDERED: Sodium Chloride 0.9% 250 ML IV SCH (10:00)
[2019-12-02] MEDS ORDERED: Iopamidol 370 76% 100 ML VIAL ONE (11:21)
--- NOTE | 2019-12-02 14:08 | PDOC.HOSPP ---
- Subjective Subjective: Feels well. No complaints. - Objective Vital Signs & Weight: Vital Signs (12 hours) Temp Pulse Resp BP Pulse Ox 12/02/19 07:16 98.0 F 70 18 158/68 H 96 12/02/19 04:44 98.1 F 74 16 171/72 H 93 L Weight Admit Weight 115 lb Weight 113 lb 2 oz I&O: 12/01/19 12/02/19 12/03/19 06:59 06:59 06:59 Intake Total 1919 2340 Output Total 1999 2249 Balance -80 90 Result Diagrams: 11/30/19 04:06 11/30/19 04:06 Hospitalist ROS - Medication Medications: Active Medications Generic Name Dose Route Start Last Admin Trade Name Freq PRN Reason Stop Dose Admin Aspirin 81 mg 11/30/19 09:00 12/02/19 06:04 Ecotrin PO 81 mg DAILY ANNEMARIE Administration Atorvastatin Calcium 20 mg 11/29/19 21:00 12/01/19 21:01 Lipitor PO 20 mg HS ANNEMARIE Administration Diltiazem HCl 240 mg 11/30/19 09:00 12/02/19 06:04 Cardizem Cd PO 240 mg DAILY ANNEMARIE Administration Doxazosin Mesylate 1 mg 11/30/19 09:00 12/02/19 06:04 Cardura PO 1 mg DAILY ANNEMARIE Administration Famotidine 20 mg 11/30/19 21:00 12/01/19 21:01 Pepcid PO 20 mg 2100 ANNEMARIE Administration Sodium Chloride 250 mls @ 50 mls/hr 12/02/19 10:00 12/02/19 11:49 Normal Saline 0.9% IV 12/02/19 14:59 250 mls .Q5H ANNEMARIE Administration - Exam General Appearance: NAD, awake alert Heart: RRR, no gallops, II/IV Respiratory: CTAB, no wheezes, no rales, no ronchi, normal chest expansion, no tachypnea, normal percussion Gastrointestinal: soft, non-tender, non-distended, normal bowel sounds, no palpable masses, no hepatomegaly, no splenomegaly, no bruit Extremities: no cyanosis, no clubbing, no edema Psychiatric: normal affect, normal behavior, A&O x 3 Hosp A/P (1) Severe aortic stenosis Code(s): I35.0 - NONRHEUMATIC AORTIC (VALVE) STENOSIS Status: Chronic (2) Syncope Code(s): R55 - SYNCOPE AND COLLAPSE Status: Acute (3) DJD (degenerative joint disease) Code(s): M19.90 - UNSPECIFIED OSTEOARTHRITIS, UNSPECIFIED SITE Status: Chronic (4) Dyslipidemia Code(s): E78.5 - HYPERLIPIDEMIA, UNSPECIFIED Status: Chronic (5) Hypertension Code(s): I10 - ESSENTIAL (PRIMARY) HYPERTENSION Status: Chronic (6) Rheumatoid arthritis Code(s): M06.9 - RHEUMATOID ARTHRITIS, UNSPECIFIED Status: Chronic (7) Chronic anemia Code(s): D64.9 - ANEMIA, UNSPECIFIED Status: Chronic - Plan Stopped abx per recommendation of ID. Continue supportive care. Heart cath today with follow up plan susequent per cards. Continue home meds.
[2019-12-02] MEDS: Famotidine 20 MG TAB PO SCH (20:42)
[2019-12-02] MEDS: Atorvastatin Calcium 20 MG TAB PO SCH (20:42)
--- NOTE | 2019-12-02 23:18 | CON ---
DATE OF CONSULTATION: HISTORY OF PRESENT ILLNESS: This is an 83-year-old female who was diagnosed with aortic valve stenosis in September of this year when she was admitted with shortness of breath and generalized weakness. She had had a couple of previous admissions over the summer with E. coli urinary tract infection, one of which had positive blood cultures. Cardiac echo showed aortic valve stenosis with a peak gradient of about 60, mean of about 40 with an area of 0.8 on her valve. She was seen by Dr. Morales and consideration was being given to TAVR have her procedure with cardiac catheterization pending. Due to some shortness of breath at home, the patient was readmitted to the hospital. She had no episodes of syncope or chest pain. She has decreased her activity level considerably over the past several months. Previously, she would get on her treadmill and exercise bike, but this has virtually ceased. She still does some housework, but has stopped cooking. PAST MEDICAL HISTORY: Includes, rheumatoid arthritis, post herpetic neuralgia, chronic back pain, dyslipidemia, and hypertension. MEDICATIONS: Prior to admission included: 1. Aspirin 81. 2. Cardizem CD 240. 3. Cardura 1 mg daily. 4. Simvastatin 40 daily. 5. Ultram p.r.n. 6. She was also on Omnicef 300 b.i.d. She has had a recent admission for bronchitis and at that time, her urine culture was positive for Proteus, although less than 5000 organisms. PAST SURGICAL HISTORY: Includes cataract surgery and removal of a cyst from behind her knee. SOCIAL HISTORY: She is a nonsmoker and nondrinker. She does live with her accompanied by him and a daughter today. PHYSICAL EXAMINATION: GENERAL: Elderly, frail-appearing lady in no distress with a recorded weight of 113 pounds, height of 5 feet 1 inch. NECK: Left carotid bruit. CARDIAC: Harsh systolic murmur at right upper sternal border. LUNGS: Clear to auscultation. ABDOMEN: Scaphoid, nontender. EXTREMITIES: She has palpable femoral and pedal pulses with no edema. IMAGING: Chest x-ray shows rib fracture on the right, one healed and one not, interstitial infiltrate present. Her CT scan shows calcification of her left main as well as her aortic valve and some in her aortic root. Her aortic valve diameter appears to be between 19 and 20 mm consistent with her small size. ASSESSMENT AND PLAN: At this time, patient appears to be somewhat frail, but has not had any syncope or angina. She may have had some congestive heart failure, although I cannot see that she has received any Lasix during this admission and her BNP was not elevated, so it is not clear to me whether her admission at this time was related to her aortic valve stenosis. Likewise, her valve area of 0.8 is severe, but may not be critical, particularly in a lady with such a small body surface area. Her functional status has declined over the past several months, possibly related to her recurrent urinary tract sepsis. At this time, surgical intervention could be contemplated with aortic valve replacement, two vessel bypass grafting, but would be certainly at elevated risk due to her frailty. Additional concern would be recurrent urinary tract infection, seeding her valve, although she has not had an infection since to E. coli cultures last year as I do not believe this Proteus culture would represent a positive urine culture. I have discussed the situation with the patient, and daughter and they are considering their options. Job ID: [id number]
[2019-12-03 04:43] LABS: #Basophils 0.1 thou/uL (0.0-0.2); #Eosinphils 1.2 thou/uL (0.0-0.7); #Lymphocytes 1.6 thou/uL (1.20-3.40); #Monocytes 0.7 thou/uL (0.11-0.59); #Neutrophils 6.3 thou/uL (1.40-6.50); %Basophils 0.6 % (0.0-1.0); %Eosinophils 11.9 % (0.0-10.0); %Lymphocytes 16.5 % (21.0-51.0); %Monocytes 7.1 % (0.0-10.0); %Neutrophils 63.8 % (42.0-75.0); Hemoglobin 11.3 g/dL (12.0-16.0); Mean Corpuscular HGB CONC 33.3 g/dL (32.0-36.0); Mean Corpuscular Hemoglobin 30.8 pg (27.0-31.0); Mean Corpuscular Volume 92.4 fL (78.0-98.0); Mean Platelet Volume 10.7 fL (7.4-10.4); Platelet Count 261 thou/uL (130-400); RBC Distribution Width 12.3 % (11.5-14.5); Red Blood Cell (RBC) Count 3.66 mill/uL (4.20-5.40); White Blood Cell (WBC) Count 9.8 thou/uL (4.8-10.8)
[2019-12-03 04:54] LABS: Anion Gap 13 mmol/L (10-20); BUN (Urea Nitrogen) 9 mg/dL (9.8-20.1); Calc. Creatinine Clearance 48 mL/min (70-130); Carbon Dioxide 26 mmol/L (23-31); Chloride 104 mmol/L (98-107); Estimated GFR-MDRD 80; Glucose 96 mg/dL (83-110); Potassium 3.7 mmol/L (3.5-5.1); Sodium 139 mmol/L (136-145)
--- NOTE | 2019-12-03 09:32 | PRG ---
DATE OF SERVICE: 12/03/2019 The patient had a rather uneventful night. She is searching for hearing aid today. I have discussed the case with the family yesterday and then the and today. At this time, I think she presents a significant operative risk and would think that continued attempts at medical management may be appropriate. It is not clear to me that she had a syncopal episode, but rather some respiratory symptoms that resolved on being brought to the hospital, although she did not have any diuretics and did not have an elevated BNP. She is not a prohibitive risk, but given her age and general deconditioning, I think that recovery from surgery would be rather prolonged and may not result in returning home, but perhaps to a long term. Job ID: [id number]
[2019-12-03] MEDS: Doxazosin 2 MG TAB PO SCH (09:46)
[2019-12-03] MEDS: Aspirin 81 mg Enteric Coated Tablet PO SCH (09:47)
[2019-12-03 11:49] VITALS: BP 139/61; TEMP 97.5
== END 2019-12-03 13:32 | disposition home or self-care (01) | DRG 287 ==
LOC: ERS 20:33 → 2NO 11-29
PROVIDERS: ADMIT Hospitalist; ATTEND Hospitalist
PROC: B2111ZZ Fluoroscopy of Multiple Coronary Arteries using Low Osmolar Contrast (ICD-10-PCS; principal; 2019-11-29)
DX: I35.0 Nonrheumatic aortic (valve) stenosis (principal); E78.5 Hyperlipidemia, unspecified; I10 Essential (primary) hypertension; M06.9 Rheumatoid arthritis, unspecified; B96.20 Unspecified Escherichia coli [E. coli] as the cause of diseases classified elsewhere; G89.29 Other chronic pain; D64.9 Anemia, unspecified; N81.10 Cystocele, unspecified; Z87.440 Personal history of urinary (tract) infections
CPT/HCPCS: 36415; 51701; 71045; 80048; 80053; 81003; 81015; 82553; 83605; 83880; 84484; 85025; 87040; 87086; 93005; 93454; 94760; 96365; 96367; A4353; C1769; J0692; J0696; J1644; J1650; J2250; J3010; J3370; J3490; Q9967

== ENCOUNTER 2020-02-29 16:23 | Emergency (ER) | payer MEDICARE, OTHER ==
--- NOTE | 2020-02-29 16:58 | RAD ---
LEFT ELBOW FOUR VIEWS: 02/29/20 COMPARISON: None. HISTORY: Pain and swelling. FINDINGS: There is prominent soft tissue swelling overlying the olecranon. No elbow joint effusion is seen. No displaced fracture or evidence of dislocation. IMPRESSION: Prominent soft tissue swelling overlying the olecranon with no displaced fracture/dislocation. POS: CANDIE
== END 2020-02-29 17:20 | disposition home or self-care (01) ==
LOC: ERS 16:23
DX: S50.02XA Contusion of left elbow, initial encounter (principal); E78.5 Hyperlipidemia, unspecified; I10 Essential (primary) hypertension; M06.9 Rheumatoid arthritis, unspecified; Z79.82 Long term (current) use of aspirin; Z79.899 Other long term (current) drug therapy; W19.XXXA Unspecified fall, initial encounter

== ENCOUNTER 2020-07-28 13:02 | Outpatient (CLI) | payer MEDICARE, OTHER ==
[2020-07-29 13:02] LABS: SARS-CoV-2 MS2 Positive; SARS-CoV-2 N Gene Negative; SARS-CoV-2 S Gene Negative; SARS-CoV-2 by NAA Not Detected (NotDetected); SARS-CoV-2 orf1ab Negative
== END 2020-07-28 13:03 | disposition home or self-care (01) ==
LOC: LABSCS 13:02
PROVIDERS: ATTEND Nurse Practitioner Family
DX: R13.10 Dysphagia, unspecified (principal); Z20.828 Contact with and (suspected) exposure to other viral communicable diseases
CPT/HCPCS: 87635; U0003

== ENCOUNTER 2020-11-13 20:52 | Emergency (ER) | payer MEDICARE, OTHER ==
--- NOTE | 2020-11-13 22:20 | RAD ---
Radiograph pelvis one view: 11/13/2020 HISTORY: 84-year-old female with acute traumatic pelvic pain due to fall FINDINGS: Overlying bowel gas and stool could obscure a fracture of the pelvis. No grossly displaced pelvic fra cture is identified. High-grade lumbar spondylosis. No dislocation or fracture of the bilateral hips identified. IMPRESSION: No fracture identified
--- NOTE | 2020-11-13 22:23 | RAD ---
Radiograph left knee 4 views: HISTORY: 84-year-old female with acute traumatic left knee pain from fall FINDINGS: Diffuse osteopenia. No fracture identified. No high-grade DJD. No suprapatellar joint effusion. There is superficial soft tissue edema anterior to patellar tendon. IMPRESSION: No fracture identified
--- NOTE | 2020-11-13 23:00 | CT ---
CT BRAIN NONCONTRAST: DATE: 11/13/2020 HISTORY: 84-year-old female status post acute head trauma from fall FINDINGS: There is no evidence of acute intra-axial or extra-axial hemorrhage. There is no midline shift or any other mass effect. There is no extra-axial fluid collection. There is no evidence of obstructive hydrocephalus. Calvarium is intact. There is diffuse brain parenchymal volume loss. There are low att enuation areas in the white matter. These are nonspecific, but in a patient of this age, they are probably chronic ischemic white matter changes due to microvascular atherosclerosis. IMPRESSION: 1) No acute intracranial findings. 2) involutional changes and chronic ischemic white matter changes.
--- NOTE | 2020-11-13 23:02 | CT ---
CT CERVICAL SPINE NONCONTRAST: DATE: 11/13/2020 HISTORY: cervical trauma: 84-year-old female status post acute cervical trauma from fall FINDINGS: There are no jumped or perched facets. There is no evidence of acute fracture. The vertebral body hei ghts are maintained. There is no prevertebral soft tissue swelling. There are degenerative disc changes and facet osteoarthrosis. IMPRESSION: 1) Cervical spondylosis. 2) no evidence of acute fracture or acute traumatic subluxation.
== END 2020-11-13 23:14 | disposition home or self-care (01) ==
LOC: ERS 20:52
DX: S09.90XA Unspecified injury of head, initial encounter (principal); S80.02XA Contusion of left knee, initial encounter; E78.5 Hyperlipidemia, unspecified; I10 Essential (primary) hypertension; M06.9 Rheumatoid arthritis, unspecified; W01.10XA Fall on same level from slipping, tripping and stumbling with subsequent striking against unspecified object, initial encounter; Y93.01 Activity, walking, marching and hiking; Y92.89 Other specified places as the place of occurrence of the external cause
CPT/HCPCS: 36416; 70450; 72125; 72170

== ENCOUNTER 2020-11-19 21:21 | Inpatient (IN) | payer MEDICARE, OTHER ==
[2020-11-19 22:01] LABS: #Eosinphils 0.1 thou/uL (0.0-0.7); #Lymphocytes 1.3 thou/uL (1.20-3.40); #Monocytes 0.5 thou/uL (0.11-0.59); #Neutrophils 4.7 thou/uL (1.40-6.50); %Basophils 0.2 % (0.0-1.0); %Eosinophils 0.8 % (0.0-10.0); %Lymphocytes 20.1 % (21.0-51.0); %Monocytes 7.7 % (0.0-10.0); %Neutrophils 71.3 % (42.0-75.0); Hemoglobin 11.7 g/dL (12.0-16.0); Mean Corpuscular HGB CONC 33.7 g/dL (32.0-36.0); Mean Platelet Volume 11.4 fL (7.4-10.4); Platelet Count 156 thou/uL (130-400); RBC Distribution Width 11.7 % (11.5-14.5); Red Blood Cell (RBC) Count 3.66 mill/uL (4.20-5.40); White Blood Cell (WBC) Count 6.6 thou/uL (4.8-10.8)
[2020-11-19 22:20] LABS: ALT (SGPT) 22 U/L (8-55); AST (SGOT) 40 U/L (5-34); Albumin 4.1 g/dL (3.4-4.8); Alkaline Phosphatase 105 U/L (40-110); Anion Gap 15 mmol/L (10-20); BUN (Urea Nitrogen) 20 mg/dL (9.8-20.1); Bilirubin, Total 0.5 mg/dL (0.2-1.2); Calc. Creatinine Clearance 0 mL/min (70-130); Calcium 9.7 mg/dL (7.8-10.44); Carbon Dioxide 27 mmol/L (23-31); Chloride 101 mmol/L (98-107); Glucose 123 mg/dL (83-110); Magnesium 1.8 mg/dL (1.6-2.6); Potassium 3.9 mmol/L (3.5-5.1); Protein, Total 7.1 g/dL (6.0-8.3); Sodium 139 mmol/L (136-145)
--- NOTE | 2020-11-19 22:36 | RAD ---
EXAM: CHEST ONE VIEW HISTORY: Shortness of breath. Covid positive. COMPARISON: 11/28/2019 FINDINGS: Postoperative changes related to aortic valve replacement are now present. Additional metallic densit y overlies the lower mediastinum which could be related to overlying loop recording device. This is difficult to further evaluate on this exam. Cardiac silhouette and pulmonary vasculature are within n ormal limits. No consolidation or pleural fluid is seen. Remote right-sided rib fractures are again seen. There is osteopenia present. Vascular calcifications are seen in the thoracic aorta. IMPRESSION: 1. No acute cardiopulmonary process. 2. Interval postoperative changes related to aortic valve replacement. In addition, there is a oval s haped metallic density seen overlying the lower mediastinum which could potentially represent a loop recorder device. This is difficult to further evaluate on this exam. Clinical correlation is rec ommended.
[2020-11-19] MEDS ORDERED: Aspirin 325 MG TAB ONE (22:40)
[2020-11-19 23:14] LABS: Bilirubin Negative (Negative); Blood, Urine Negative (Negative); Clarity Turbid (Clear); Glucose, Urine (Dipstick) Normal (Negative); Ketone, Urine Negative (Negative); Leukocyte 250 Leu/uL (Negative); Nitrite Negative (Negative); Protein, Urine (Dipstick) 50 mg/dL (Neg-Trace); RBC/HPF 0-3 HPF (0-3); Specific Gravity, Urine 1.026 (1.002-1.036); Squamous Epithelial 21-50 HPF (0-3)
[2020-11-19 23:17] LABS: Bacteria/HPF 1+ HPF (None Seen)
[2020-11-19] MEDS ORDERED: Ondansetron PF 4 MG/2 ML Vial IVP PRN (23:58)
[2020-11-19] MEDS ORDERED: Guaifenesin DM 100-10/5 ML UDCUP PO PRN (23:58)
[2020-11-19] MEDS ORDERED: Calcium Carbonate 500 MG ChewTAB PO PRN (23:58)
[2020-11-19] MEDS ORDERED: Acetaminophen 650 MG Suppository PR PRN (23:58)
[2020-11-19] MEDS ORDERED: Ondansetron ODT 4 MG TAB PO PRN (23:58)
--- NOTE | 2020-11-20 00:03 | PDOC.HHP ---
Hospitalist HPI - History of Present Illness generalize weakness History of Present Illness: Case of an 84y/o female with the pmhx of hld, htn hx of cva and RA who presents to hospital due to general malaise. patient recently diagnosed with covid 19. Patient denies shortness of breath but notes that she is very weak and is unable to get out of bed by herself. Patient denies any shortness of breath, co ugh or fever. Hospitalist ROS - Review of Systems All other systems reviewed; all pertinent +/- noted in HPI/Subj Hospitalist History - Past Surgical History Other Surgical History: cyst removal - Family History Family History: reports: no pertinent history - Social History Smoking Status: Never smoker Alcohol: reports: None Drugs: reports: none - Exam General Appearance: NAD, awake alert Eye: PERRL, anicteric sclera ENT: normocephalic atraumatic, no oropharyngeal lesions Neck: supple, symmetric, no JVD Heart: RRR, no murmur, no gallops Respiratory: CTAB, no wheezes, no rales Gastrointestinal: soft, non-tender, non-distended Extremities: no cyanosis, no clubbing, no edema Skin: normal turgor, no lesions, no rashes Neurological: cranial nerve grossly intact, normal sensation to touch Musculoskeletal: generalized weakness Psychiatric: normal affect, normal behavior, A&O x 3 Hospitalist Results - Labs Result Diagrams: 11/19/20 21:49 11/19/20 21:49 Lab results: WBC 6.6 thou/uL (4.8-10.8) 11/19/20 21:49 Hgb 11.7 g/dL (12.0-16.0) L 11/19/20 21:49 Hct 34.7 % (36.0-47.0) L 11/19/20 21:49 MCV 95.0 fL (78.0-98.0) 11/19/20 21:49 Plt Count 156 thou/uL (130-400) 11/19/20 21:49 Neutrophils % 71.3 % (42.0-75.0) 11/19/20 21:49 Sodium 139 mmol/L (136-145) 11/19/20 21:49 Potassium 3.9 mmol/L (3.5-5.1) 12/31/20 21:49 Chloride 101 mmol/L (98-107) 11/19/20 21:49 Carbon Dioxide 27 mmol/L (23-31) 11/19/20 21:49 BUN 20 mg/dL (9.8-20.1) 11/19/20 21:49 Creatinine 1.07 mg/dL (0.6-1.1) 11/19/20 21:49 Glucose 123 mg/dL (83-110) H 11/19/20 21:49 Calcium 9.7 mg/dL (7.8-10.44) 11/19/20 21:49 Total Bilirubin 0.5 mg/dL (0.2-1.2) 11/19/20 21:49 AST 40 U/L (5-34) H 11/19/20 21:49 ALT 22 U/L (8-55) 11/19/20 21:49 Alkaline Phosphatase 105 U/L (40-110) 11/19/20 21:49 CK-MB (CK-2) 2.0 ng/mL (0-6.6) 11/19/20 21:49 Troponin I 0.042 ng/mL (< 0.028) H 11/19/20 21:49 B-Natriuretic Peptide 81.5 pg/mL (0-100) 11/19/20 21:49 Serum Total Protein 7.1 g/dL (6.0-8.3) 11/19/20 21:49 Albumin 4.1 g/dL (3.4-4.8) 11/19/20 21:49 Urine Ketones Negative mg/dL (Negative) 11/19/20 22:57 Urine Blood Negative (Negative) 11/19/20 22:57 Urine Nitrite Negative (Negative) 11/19/20 22:57 Ur Leukocyte Esterase 250 Donny/uL (Negative) A 11/19/20 22:57 Urine RBC 0-3 HPF (0-3) 11/19/20 22:57 Urine WBC 7-10 HPF (0-3) A 11/19/20 22:57 Ur Squamous Epith Cells 21-50 HPF (0-3) A 11/19/20 22:57 Urine Bacteria 1+ HPF (None Seen) A 11/19/20 22:57 Hospitalist H&P A/P - Problem (1) COVID-19 Code(s): U07.1 - COVID-19 Status: Acute (2) Elevated troponin Code(s): R77.8 - OTHER SPECIFIED ABNORMALITIES OF PLASMA PROTEINS Status: Acute (3) Dyslipidemia Code(s): E78.5 - HYPERLIPIDEMIA, UNSPECIFIED Status: Chronic (4) Hypertension Code(s): I10 - ESSENTIAL (PRIMARY) HYPERTENSION Status: Chronic (5) Rheumatoid arthritis Code(s): M06.9 - RHEUMATOID ARTHRITIS, UNSPECIFIED Status: Chronic (6) HLD (hyperlipidemia) Code(s): E78.5 - HYPERLIPIDEMIA, UNSPECIFIED Status: Acute - Plan Plan: case of an 84y/o female with the stated pmhx who presents with covid 19 covid 19 - recently tested positive - will start vit c d zinc - isolation precautions - adequate o2 saturations elevated troponin - likely deman ischemia in setting of infection - will trend hld / htn / RA - continue home meds
[2020-11-20 02:09] LABS: Troponin I 0.031 ng/mL (< 0.028)
[2020-11-20] MEDS: Sodium Chloride 0.9% 1,000 ML IV SCH ×2 (03:59→22:41)
[2020-11-20 04:47] LABS: Hemoglobin 9.4 g/dL (12.0-16.0); Mean Corpuscular Hemoglobin 30.9 pg (27.0-31.0); Mean Corpuscular Volume 93.8 fL (78.0-98.0); Mean Platelet Volume 11.6 fL (7.4-10.4); Platelet Count 137 thou/uL (130-400); RBC Distribution Width 11.7 % (11.5-14.5); Red Blood Cell (RBC) Count 3.03 mill/uL (4.20-5.40); White Blood Cell (WBC) Count 3.2 thou/uL (4.8-10.8)
[2020-11-20 05:03] LABS: ALT (SGPT) 17 U/L (8-55); AST (SGOT) 30 U/L (5-34); Albumin 3.2 g/dL (3.4-4.8); Alkaline Phosphatase 80 U/L (40-110); Anion Gap 13 mmol/L (10-20); BUN (Urea Nitrogen) 18 mg/dL (9.8-20.1); Bilirubin, Total 0.3 mg/dL (0.2-1.2); Calc. Creatinine Clearance 0 mL/min (70-130); Calcium 8.7 mg/dL (7.8-10.44); Carbon Dioxide 22 mmol/L (23-31); Chloride 107 mmol/L (98-107); Globulin 2.6 g/dL (2.4-3.5); Glucose 97 mg/dL (83-110); Potassium 3.7 mmol/L (3.5-5.1); Protein, Total 5.8 g/dL (6.0-8.3); Sodium 138 mmol/L (136-145)
[2020-11-20 05:06] LABS: Troponin I 0.043 ng/mL (< 0.028)
[2020-11-20 05:58] LABS: Band 4 % (5-11); Lymphocytes 33 % (21-51); MDiff Complete? YES; Monocytes 6 % (0-10); Neutrophil 57 % (42-75)
[2020-11-20] MEDS ORDERED: Aspirin Chewable 81 MG TAB ONE (09:37)
[2020-11-20] MEDS ORDERED: Enoxaparin Sodium 40 MG/0.4 ML SYRINGE ONE (09:37)
[2020-11-20] MEDS: Enoxaparin Sodium 40 MG/0.4 ML SYRINGE SC SCH (09:44)
[2020-11-20] MEDS: Aspirin 81 mg Enteric Coated Tablet PO SCH (09:44)
--- NOTE | 2020-11-20 13:23 | PDOC.HOSPP ---
- Subjective Encounter Date: 11/20/20 Encounter Time: 13:21 Subjective: no sob, cough. just weak. - Objective Result Diagrams: 11/20/20 04:02 11/20/20 04:02 Hospitalist ROS - Medication Medications: Active Medications Generic Name Dose Route Start Last Admin Trade Name Elmer PRN Reason Stop Dose Admin Aspirin 81 mg 11/20/20 09:00 11/20/20 09:44 Aspirin 81 Mg Enteric Coated Tablet PO 81 mg DAILY ANNEMARIE Administration Enoxaparin Sodium 40 mg 11/20/20 09:00 11/20/20 09:44 Enoxaparin Sodium 40 Mg/0.4 Ml Syringe SC 40 mg 0900 ANNEMARIE Administration Sodium Chloride 1,000 mls @ 50 mls/hr 11/20/20 02:00 11/20/20 03:59 Normal Saline 0.9% IV 1,000 mls .Q20H ANNEMARIE Administration - Exam General Appearance: awake alert Neck: no JVD Heart: RRR, no murmur Heart - other findings: crisp valve sounds Respiratory: CTAB Gastrointestinal: soft, normal bowel sounds Extremities: no edema Hosp A/P (1) COVID-19 Code(s): U07.1 - COVID-19 Status: Acute (2) Elevated troponin Code(s): R77.8 - OTHER SPECIFIED ABNORMALITIES OF PLASMA PROTEINS Status: Acute (3) HLD (hyperlipidemia) Code(s): E78.5 - HYPERLIPIDEMIA, UNSPECIFIED Status: Chronic Qualifiers: Hyperlipidemia type: unspecified Qualified Code(s): E78.5 - Hyperlipidemia, unspecified (4) Hypertension Code(s): I10 - ESSENTIAL (PRIMARY) HYPERTENSION Status: Chronic (5) Rheumatoid arthritis Code(s): M06.9 - RHEUMATOID ARTHRITIS, UNSPECIFIED Status: Chronic (6) Severe aortic stenosis Code(s): I35.0 - NONRHEUMATIC AORTIC (VALVE) STENOSIS Status: Chronic Plan: post TAVR - Plan 1. covid- no resp issues. D-Dimer, CRP, ferretin ordered. Zn, Vit C 2. HO , post TAVR 3 HTN-selected home meds 4. Dyslipidemia- cont statin
[2020-11-20] MEDS: Atorvastatin Calcium 20 MG TAB PO SCH (20:51)
[2020-11-20] MEDS: Acetaminophen 325 MG TAB PO PRN (22:42)
[2020-11-21] MEDS: Enoxaparin Sodium 40 MG/0.4 ML SYRINGE SC SCH (07:47)
[2020-11-21] MEDS: Aspirin 81 mg Enteric Coated Tablet PO SCH (07:47)
--- NOTE | 2020-11-21 12:19 | EKG ---
Test Reason : Blood Pressure : / mmHG Vent. Rate : 063 BPM Atrial Rate : 063 BPM P-R Int : 138 ms QRS Dur : 080 ms QT Int : 426 ms P-R-T Axes : 115 037 047 degrees QTc Int : 435 ms Normal sinus rhythm Normal ECG Confirmed by PETE JETER ([id number]), food editor REY YU ([id number]) on 11/21/2020 12:19:05 PM Referred By: Confirmed By:PETE JETER
--- NOTE | 2020-11-21 15:53 | PDOC.HOSPP ---
- Subjective Encounter Date: 11/21/20 Subjective: Patient is not very talkative or interactive today. She does tell me that she ate a good lunch which she did. - Objective Vital Signs & Weight: Vital Signs (12 hours) Temp Pulse Resp BP Pulse Ox 11/21/20 11:00 97.5 F L 56 L 20 180/77 H 97 11/21/20 07:55 97.5 F L 53 L 20 172/72 H 99 Weight Weight 108 lb 12.8 oz I&O: 11/20/20 11/21/20 11/22/20 06:59 06:59 06:59 Intake Total 350 Output Total 500 Balance -150 Result Diagrams: 11/20/20 04:02 11/20/20 04:02 Hospitalist ROS - Medication Medications: Active Medications Generic Name Dose Route Start Last Admin Trade Name Freq PRN Reason Stop Dose Admin Acetaminophen 650 mg 11/19/20 23:58 11/20/20 22:42 Acetaminophen 325 Mg Tab PO 650 mg Q4H PRN Administration Headache/Fever/Mild Pain (1-3) Aspirin 81 mg 11/20/20 09:00 11/21/20 07:47 Aspirin 81 Mg Enteric Coated Tablet PO 81 mg DAILY ANNEMARIE Administration Atorvastatin Calcium 20 mg 11/20/20 21:00 11/20/20 20:51 Atorvastatin Calcium 20 Mg Tab PO 20 mg HS ANNEMARIE Administration Diltiazem HCl 240 mg 11/20/20 21:00 11/20/20 20:51 Diltiazem Hcl Cd 240 Mg Capsule PO 240 mg HS ANNEMARIE Administration Enoxaparin Sodium 40 mg 11/20/20 09:00 11/21/20 07:47 Enoxaparin Sodium 40 Mg/0.4 Ml Syringe SC 40 mg 0900 ANNEMARIE Administration Sodium Chloride 1,000 mls @ 50 mls/hr 11/20/20 02:00 11/20/20 22:41 Normal Saline 0.9% IV Not Given .Q20H ANNEMARIE - Exam General Appearance: NAD, awake alert Heart: RRR, no murmur, no gallops, no rubs, normal peripheral pulses Respiratory: CTAB, no wheezes, no rales, no ronchi, normal chest expansion, no tachypnea, normal percussion Gastrointestinal: soft, non-tender, non-distended, normal bowel sounds, no palpable masses, no hepatomegaly, no splenomegaly, no bruit Extremities: no cyanosis, no clubbing, no edema Neurological: no focal deficits Musculoskeletal: generalized weakness Psychiatric: normal affect, normal behavior Hosp A/P (1) COVID-19 virus infection Code(s): U07.1 - COVID-19 Status: Acute (2) S/P TAVR (transcatheter aortic valve replacement) Code(s): Z95.2 - PRESENCE OF PROSTHETIC HEART VALVE Status: Acute (3) Elevated troponin Code(s): R77.8 - OTHER SPECIFIED ABNORMALITIES OF PLASMA PROTEINS Status: Acute (4) HLD (hyperlipidemia) Code(s): E78.5 - HYPERLIPIDEMIA, UNSPECIFIED Status: Chronic Qualifiers: Hyperlipidemia type: unspecified Qualified Code(s): E78.5 - Hyperlipidemia, unspecified (5) Chronic anemia Code(s): D64.9 - ANEMIA, UNSPECIFIED Status: Chronic (6) DJD (degenerative joint disease) Code(s): M19.90 - UNSPECIFIED OSTEOARTHRITIS, UNSPECIFIED SITE Status: Chronic (7) Dyslipidemia Code(s): E78.5 - HYPERLIPIDEMIA, UNSPECIFIED Status: Chronic (8) Hypertension Code(s): I10 - ESSENTIAL (PRIMARY) HYPERTENSION Status: Chronic (9) Rheumatoid arthritis Code(s): M06.9 - RHEUMATOID ARTHRITIS, UNSPECIFIED Status: Chronic (10) Physical debility Code(s): R53.81 - OTHER MALAISE Status: Acute - Plan The patient is a 84-year-old female who presented to the emergency department with profound generalized weakness. Apparently recently tested positive for COVID-19. Physical debility: Likely due to the effects of the COVID-19 infection. Spoke with the patient's daughter. Patient lives at home with her who is currently hospitalized with COVID-19 pneumonia. Patient's daughter indicated that she has been essentially collapsing at home because of her profound weakness. We will request physical therapy evaluation. May also need OT evaluation. Discussed the possibility of therapy with the patient's daughter and she is firmly in favor. COVID-19 virus infection: Unknown when she actually tested positive. No significant evidence of respiratory symptoms. Appears to largely be causing generalized debility. Continue isolation. Inflammatory markers are not significantly high other than the D-dimer at 3. Elevated troponins: Appear to be the patient's baseline based on previous labs. Encephalopathy: Unclear if the patient truly has significant confusion or if this is a byproduct of profound hearing loss. Patient's daughter indicated she has been having hearing difficulties especially on her right side. She had follow-up appointment scheduled in 3 days with ENT to reassess this. Status post TAVR: Stable. Hypertension: Continue with diltiazem CD 240 mg p.o. daily and Cardura 1 mg daily. Her blood pressure continues to run a bit high. Primarily systolic. Heart rate is in the 50s not leaving much room to push the dose of the diltiazem. Continue to monitor. If remains elevated by tomorrow we will add therapy. Hyperlipidemia: Continue simvastatin 40 mg nightly. History of rheumatoid arthritis.: Currently on no active medications. DVT prophylaxis: Lovenox 40 mg daily PUD prophylaxis: Famotidine.
[2020-11-21] MEDS: Sodium Chloride 0.9% 1,000 ML IV SCH (19:07)
[2020-11-21] MEDS: Atorvastatin Calcium 20 MG TAB PO SCH (21:04)
[2020-11-21] MEDS: Famotidine 20 MG TAB PO SCH (21:04)
[2020-11-22] MEDS: Famotidine 20 MG TAB PO SCH ×2 (11:03→21:13)
[2020-11-22] MEDS: Enoxaparin Sodium 40 MG/0.4 ML SYRINGE SC SCH (11:03)
[2020-11-22] MEDS: Aspirin 81 mg Enteric Coated Tablet PO SCH (11:04)
[2020-11-22] MEDS ORDERED: hydrALAZINE 20 MG/ML VIAL SLOW IVP PRN (11:05)
[2020-11-22] MEDS ORDERED: Lisinopril 5 MG TAB PO SCH (11:15)
--- NOTE | 2020-11-22 15:49 | PDOC.HOSPP ---
- Subjective Encounter Date: 11/22/20 Subjective: Patient says she is doing fine today. She denies any shortness of breath. Says she is willing to try to get up a little bit. - Objective Vital Signs & Weight: Vital Signs (12 hours) Temp Pulse Resp BP Pulse Ox 11/22/20 13:59 63 11/22/20 12:51 99.3 F 63 20 167/72 H 100 11/22/20 10:48 98.6 F 56 L 18 193/83 H 99 11/22/20 04:42 96 11/22/20 04:00 59 L 18 163/72 H 100 Weight Weight 108 lb 12.8 oz I&O: 11/21/20 11/22/20 11/23/20 06:59 06:59 06:59 Intake Total 350 1420 Output Total 500 700 Balance -150 720 Result Diagrams: 11/20/20 04:02 11/20/20 04:02 Hospitalist ROS - Medication Medications: Active Medications Generic Name Dose Route Start Last Admin Trade Name Freq PRN Reason Stop Dose Admin Acetaminophen 650 mg 11/19/20 23:58 11/20/20 22:42 Acetaminophen 325 Mg Tab PO 650 mg Q4H PRN Administration Headache/Fever/Mild Pain (1-3) Aspirin 81 mg 11/20/20 09:00 11/22/20 11:04 Aspirin 81 Mg Enteric Coated Tablet PO 81 mg DAILY ANNEMARIE Administration Atorvastatin Calcium 20 mg 11/20/20 21:00 11/21/20 21:04 Atorvastatin Calcium 20 Mg Tab PO 20 mg HS ANNEMARIE Administration Diltiazem HCl 240 mg 11/20/20 21:00 11/21/20 21:04 Diltiazem Hcl Cd 240 Mg Capsule PO 240 mg HS ANNEMARIE Administration Enoxaparin Sodium 40 mg 11/20/20 09:00 11/22/20 11:03 Enoxaparin Sodium 40 Mg/0.4 Ml Syringe SC 40 mg 0900 ANNEMARIE Administration Famotidine 20 mg 11/21/20 21:00 11/22/20 11:03 Famotidine 20 Mg Tab PO 20 mg BID ANNEMARIE Administration - Exam General Appearance: NAD, awake alert General - other findings: Significant hearing deficit. A little better on the left. Heart: RRR, no murmur, no gallops, no rubs, normal peripheral pulses Respiratory: CTAB, no wheezes, no rales, no ronchi, normal chest expansion, no tachypnea, normal percussion Gastrointestinal: soft, non-tender, non-distended, normal bowel sounds, no palpable masses, no hepatomegaly, no splenomegaly, no bruit Extremities: no cyanosis, no clubbing, no edema Skin: normal turgor Neurological: no focal deficits Musculoskeletal: generalized weakness Psychiatric: normal affect, normal behavior Hosp A/P (1) COVID-19 virus infection Code(s): U07.1 - COVID-19 Status: Acute (2) S/P TAVR (transcatheter aortic valve replacement) Code(s): Z95.2 - PRESENCE OF PROSTHETIC HEART VALVE Status: Acute (3) Elevated troponin Code(s): R77.8 - OTHER SPECIFIED ABNORMALITIES OF PLASMA PROTEINS Status: Acute (4) HLD (hyperlipidemia) Code(s): E78.5 - HYPERLIPIDEMIA, UNSPECIFIED Status: Chronic Qualifiers: Hyperlipidemia type: unspecified Qualified Code(s): E78.5 - Hyperlipidemia, unspecified (5) Chronic anemia Code(s): D64.9 - ANEMIA, UNSPECIFIED Status: Chronic (6) DJD (degenerative joint disease) Code(s): M19.90 - UNSPECIFIED OSTEOARTHRITIS, UNSPECIFIED SITE Status: Chronic (7) Dyslipidemia Code(s): E78.5 - HYPERLIPIDEMIA, UNSPECIFIED Status: Chronic (8) Hypertension Code(s): I10 - ESSENTIAL (PRIMARY) HYPERTENSION Status: Chronic (9) Rheumatoid arthritis Code(s): M06.9 - RHEUMATOID ARTHRITIS, UNSPECIFIED Status: Chronic (10) Physical debility Code(s): R53.81 - OTHER MALAISE Status: Acute - Plan The patient is a 84-year-old female who presented to the emergency department with profound generalized weakness. Apparently recently tested positive for COVID-19. Physical debility: Likely due to the effects of the COVID-19 infection. Spoke with the patient's daughter. Patient lives at home with her who is currently hospitalized with COVID-19 pneumonia. Patient's daughter indicated that she has been essentially collapsing at home because of her profound weakness. We will request physical therapy evaluation. May also need OT evaluation. Discussed the possibility of therapy with the patient's daughter and she is firmly in favor. COVID-19 virus infection: Unknown when she actually tested positive. No significant evidence of respiratory symptoms. Appears to largely be causing generalized debility. Continue isolation. Inflammatory markers are not significantly high other than the D-dimer at 3. Repeat ordered for 11/23/2020. Repeat Covid test on 11/22/2020 to confirm diagnosis given the lack of findings. Elevated troponins: Appear to be the patient's baseline based on previous labs. Encephalopathy: Unclear if the patient truly has significant confusion or if this is a byproduct of profound hearing loss. Patient's daughter indicated she has been having hearing difficulties especially on her right side. She had follow-up appointment scheduled in 3 days with ENT to reassess this. It appears to be less encephalopathic when speaking loudly to her on her left side. Status post TAVR: Stable. Hypertension: Continue with diltiazem CD 240 mg p.o. daily. Cardura 2 mg daily was resumed on 11/23/2020. Hyperlipidemia: Continue simvastatin 40 mg nightly. History of rheumatoid arthritis.: Currently on no active medications. DVT prophylaxis: Lovenox 40 mg daily PUD prophylaxis: Famotidine.
[2020-11-22] MEDS: Atorvastatin Calcium 20 MG TAB PO SCH (21:14)
[2020-11-23 01:56] LABS: SARS-CoV-2 MS2 Positive; SARS-CoV-2 N Gene Positive; SARS-CoV-2 S Gene Positive; SARS-CoV-2 by NAA DETECTED (NotDetected); SARS-CoV-2 orf1ab Positive
[2020-11-23] MEDS ORDERED: Lisinopril 5 MG TAB PO SCH (09:00)
[2020-11-23] MEDS: Enoxaparin Sodium 40 MG/0.4 ML SYRINGE SC SCH (10:39)
--- NOTE | 2020-11-23 11:07 | RAD ---
PORTABLE CHEST: Date; 11/23/2020 HISTORY: COVID-positive. Shortness of breath. COMPARISON: 11/19/2020 exam. FINDINGS: Heart size within normal limits. Aortic valve stent is present. Atherosclerotic changes of aorta. Chr onic appearing lung changes without definitive infiltrates. IMPRESSION: Chronic appearing lung change. POS: OFF
[2020-11-23] MEDS: Doxazosin 2 MG TAB PO SCH (11:36)
[2020-11-23] MEDS: Aspirin 81 mg Enteric Coated Tablet PO SCH (11:36)
[2020-11-23] MEDS: Clopidogrel Bisulfate 75 MG TAB PO SCH (11:39)
[2020-11-23] MEDS: Famotidine 20 MG TAB PO SCH ×2 (11:39→20:58)
--- NOTE | 2020-11-23 13:59 | PDOC.HOSPP ---
- Subjective Encounter Date: 11/23/20 Subjective: Reports she feels generally well. She has been eating okay. Denies any shortness of breath. - Objective Vital Signs & Weight: Vital Signs (12 hours) Temp Pulse Resp BP BP BP Pulse Ox 11/23/20 12:04 179/72 H 160/79 H 11/23/20 10:40 98.8 F 54 L 20 174/68 H 97 11/23/20 04:25 98.6 F 56 L 18 127/58 L 96 Weight Weight 108 lb 12.8 oz I&O: 11/22/20 11/23/20 11/24/20 06:59 06:59 06:59 Intake Total 1420 2579 Output Total 700 1050 Balance 720 1529 Result Diagrams: 11/20/20 04:02 11/20/20 04:02 Hospitalist ROS - Medication Medications: Active Medications Generic Name Dose Route Start Last Admin Trade Name Freq PRN Reason Stop Dose Admin Acetaminophen 650 mg 11/19/20 23:58 11/20/20 22:42 Acetaminophen 325 Mg Tab PO 650 mg Q4H PRN Administration Headache/Fever/Mild Pain (1-3) Aspirin 81 mg 11/20/20 09:00 11/23/20 11:36 Aspirin 81 Mg Enteric Coated Tablet PO 81 mg DAILY ANNEMARIE Administration Atorvastatin Calcium 20 mg 11/20/20 21:00 11/22/20 21:14 Atorvastatin Calcium 20 Mg Tab PO 20 mg HS ANNEMARIE Administration Clopidogrel Bisulfate 75 mg 11/23/20 09:00 11/23/20 11:39 Clopidogrel Bisulfate 75 Mg Tab PO 75 mg DAILY ANNEMARIE Administration Diltiazem HCl 240 mg 11/20/20 21:00 11/22/20 21:13 Diltiazem Hcl Cd 240 Mg Capsule PO 240 mg HS ANNEMARIE Administration Doxazosin Mesylate 1 mg 11/23/20 09:00 11/23/20 11:36 Doxazosin 2 Mg Tab PO 1 mg DAILY ANNEMARIE Administration Enoxaparin Sodium 40 mg 11/20/20 09:00 11/23/20 10:39 Enoxaparin Sodium 40 Mg/0.4 Ml Syringe SC 40 mg 0900 ANNEMARIE Administration Famotidine 20 mg 11/21/20 21:00 11/23/20 11:39 Famotidine 20 Mg Tab PO 20 mg BID ANNEMARIE Administration Hydralazine HCl 10 mg 11/22/20 11:05 11/22/20 21:11 Hydralazine 20 Mg/Ml Vial SLOW IVP 10 mg Q4H PRN Administration Hypertension - Exam General Appearance: NAD, awake alert Heart: RRR, no gallops, II/IV Respiratory: CTAB, no wheezes, no rales, no ronchi, normal chest expansion, no tachypnea, normal percussion Gastrointestinal: soft, non-tender, non-distended, normal bowel sounds, no palpable masses, no hepatomegaly, no splenomegaly, no bruit Extremities: no cyanosis, no clubbing, no edema Skin: normal turgor Neurological: no focal deficits Musculoskeletal: generalized weakness Psychiatric: normal affect Hosp A/P (1) COVID-19 virus infection Code(s): U07.1 - COVID-19 Status: Acute (2) S/P TAVR (transcatheter aortic valve replacement) Code(s): Z95.2 - PRESENCE OF PROSTHETIC HEART VALVE Status: Acute (3) Elevated troponin Code(s): R77.8 - OTHER SPECIFIED ABNORMALITIES OF PLASMA PROTEINS Status: Acute (4) HLD (hyperlipidemia) Code(s): E78.5 - HYPERLIPIDEMIA, UNSPECIFIED Status: Chronic Qualifiers: Hyperlipidemia type: unspecified Qualified Code(s): E78.5 - Hyperlipidemia, unspecified (5) Chronic anemia Code(s): D64.9 - ANEMIA, UNSPECIFIED Status: Chronic (6) DJD (degenerative joint disease) Code(s): M19.90 - UNSPECIFIED OSTEOARTHRITIS, UNSPECIFIED SITE Status: Chronic (7) Dyslipidemia Code(s): E78.5 - HYPERLIPIDEMIA, UNSPECIFIED Status: Chronic (8) Hypertension Code(s): I10 - ESSENTIAL (PRIMARY) HYPERTENSION Status: Chronic (9) Rheumatoid arthritis Code(s): M06.9 - RHEUMATOID ARTHRITIS, UNSPECIFIED Status: Chronic (10) Physical debility Code(s): R53.81 - OTHER MALAISE Status: Acute - Plan The patient is a 84-year-old female who presented to the emergency department with profound generalized weakness. Apparently recently tested positive for COVID-19. Physical debility: Likely due to the effects of the COVID-19 infection. Spoke with the patient's daughter. Patient lives at home with her who is currently hospitalized with COVID-19 pneumonia. Patient's daughter indicated that she has been essentially collapsing at home because of her profound weakness. We will request physical therapy evaluation. May also need OT evaluation. Discussed the possibility of therapy with the patient's daughter and she is firmly in favor. Appreciate physical therapy evaluation. Recommendation is for rehab. COVID-19 virus infection: Unknown when she actually tested positive. No significant evidence of respiratory symptoms. Appears to largely be causing generalized debility. Continue isolation. Inflammatory markers are not significantly high other than the D-dimer at 3. Repeat ordered for 11/23/2020. Repeat Covid test on 11/22/2020 to confirm diagnosis was positive. Repeat chest x-ray on 11/23/2020 remains negative. Elevated troponins: Appear to be the patient's baseline based on previous labs. Encephalopathy: Appears to be more related to the patient's profound hearing loss. Status post TAVR: Stable. Hypertension: Continue with diltiazem CD 240 mg p.o. daily. Cardura 2 mg daily was resumed on 11/23/2020. Hyperlipidemia: Continue simvastatin 40 mg nightly. History of rheumatoid arthritis.: Currently on no active medications. DVT prophylaxis: Lovenox 40 mg daily PUD prophylaxis: Famotidine. Disposition: Patient is medically stable for discharge as of 11/23/2020. Awaiting OT evaluation and case management assistance and hopefully finding rehab placement for this patient.
[2020-11-23] MEDS: Atorvastatin Calcium 20 MG TAB PO SCH (20:58)
[2020-11-24] MEDS: Famotidine 20 MG TAB PO SCH ×2 (07:38→20:26)
[2020-11-24] MEDS: Aspirin 81 mg Enteric Coated Tablet PO SCH (07:38)
[2020-11-24] MEDS: Enoxaparin Sodium 40 MG/0.4 ML SYRINGE SC SCH (07:38)
[2020-11-24] MEDS: Acetaminophen 325 MG TAB PO PRN (07:39)
[2020-11-24] MEDS: Clopidogrel Bisulfate 75 MG TAB PO SCH (07:39)
[2020-11-24] MEDS: Doxazosin 2 MG TAB PO SCH (07:41)
[2020-11-24 09:13] LABS: #Eosinphils 0.1 thou/uL (0.0-0.7); #Monocytes 0.3 thou/uL (0.11-0.59); #Neutrophils 3.4 thou/uL (1.40-6.50); %Basophils 0.3 % (0.0-1.0); %Eosinophils 2.5 % (0.0-10.0); %Lymphocytes 19.7 % (21.0-51.0); %Neutrophils 70.5 % (42.0-75.0); Hemoglobin 10.7 g/dL (12.0-16.0); Mean Corpuscular HGB CONC 33.6 g/dL (32.0-36.0); Mean Corpuscular Hemoglobin 31.5 pg (27.0-31.0); Mean Corpuscular Volume 93.6 fL (78.0-98.0); Mean Platelet Volume 10.5 fL (7.4-10.4); Platelet Count 170 thou/uL (130-400); RBC Distribution Width 11.8 % (11.5-14.5); Red Blood Cell (RBC) Count 3.39 mill/uL (4.20-5.40); White Blood Cell (WBC) Count 4.8 thou/uL (4.8-10.8)
[2020-11-24 09:25] LABS: ALT (SGPT) 12 U/L (8-55); AST (SGOT) 21 U/L (5-34); Albumin 3.1 g/dL (3.4-4.8); Alkaline Phosphatase 83 U/L (40-110); Anion Gap 14 mmol/L (10-20); BUN (Urea Nitrogen) 25 mg/dL (9.8-20.1); Bilirubin, Total 0.4 mg/dL (0.2-1.2); CRP (Inflammatory) 2.67 mg/dL (= or < 0.5); Calc. Creatinine Clearance 39 mL/min (70-130); Calcium 8.9 mg/dL (7.8-10.44); Carbon Dioxide 20 mmol/L (23-31); Chloride 107 mmol/L (98-107); Globulin 2.9 g/dL (2.4-3.5); Glucose 100 mg/dL (83-110); Potassium 3.7 mmol/L (3.5-5.1); Sodium 137 mmol/L (136-145)
--- NOTE | 2020-11-24 11:39 | PQF ---
CLINICAL DOCUMENTATION CLARIFICATION FORM: Dear Dr. CYDNEY SINGLETARY Date: 11-24-20 Please exercise your independent, professional judgment in responding to the clarification form. Clinical indicators are provided on the bottom of this form for your review. Please check appropriate box(es): [ ] UTI [ x ] Contaminated urine specimen without UTI [ ] Other diagnosis [ ] Unable to determine In addition, please specify: Present on Admission (POA): [ ] Yes [ ] No [ ] Unable to determine For continuity of documentation, please document condition throughout progress notes and discharge summary. Thank You. To be completed by CDI/Coding staff for physician review: CLINICAL INDICATORS - SIGNS / SYMPTOMS / LABS / RESULTS AND LOCATION IN MR: URINE: 11-19-20: URINE PROTEIN: 50 A UR LEUKOCYTE ESTERASE: 250 A URINE WBC: 7-10 A URINE BACTERIA: 1+ A TEMP: 1-01-10: 99.8 RISK FACTORS / RESULTS AND LOCATION IN MR: ER DX: ELEVATED TROPONIN, COVID +, DEHYDRATION, WEAKNESS TREATMENT / RESULTS AND LOCATION IN MR: ER NOTES 11-19-20: NS IVF MONITORING OF LAB: URINE 11-19-20 CDS Signature: Alize Anna Phone #: [phone] Date:11-24-20 This is a permanent part of the Medical Record [facility]
--- NOTE | 2020-11-24 12:00 | PQF ---
CLINICAL DOCUMENTATION CLARIFICATION FORM: Dear Dr. CYDNEY SINGLETARY Date: 11-24-20 Please exercise your independent, professional judgment in responding to the clarification form. Clinical indicators are provided on the bottom of this form for your review. Please check appropriate box(es): [ ] Encephalopathy: Type: [ ] Acute [ ] Subacute [ ] Chronic Etiology [ ] Hypertensive [ ] Metabolic [ ] Toxic [ ] Other (please specify) [ ] Transient Alteration of Awareness [ x ] Other diagnosis Hearing impairment [ ] Unable to determine In addition, please specify: Present on Admission (POA): [ ] Yes [ ] No [ ] Unable to determine For continuity of documentation, please document condition throughout progress notes and discharge summary. Thank You. To be completed by CDI/Coding staff for physician review: CLINICAL INDICATORS - SIGNS / SYMPTOMS / LABS / RESULTS AND LOCATION IN EMR: PN DR. SINGLETARY 11-21-20: ENCEPHALOPATHY: UNCLEAR IF PATIENT TRULY HAS SIGNIFICANT CONFUSION OR THIS IS A BYPRODUCT OF PROFOUND HEARING LOSS. PN DR. SINGLETARY 11-21-20: COVID 19 VIRUS INFECTION, ELEVATED TROP, HLD, CHRONIC ANEMIA, PHYSICAL DEBILITY, ENCEPHALOPATHY, HTN, CONTINUE TO RUN A LITTLE HIGH RISK FACTORS / RESULTS AND LOCATION IN EMR: PN DR. SINGLETARY 11-21-20: COVID 19 VIRUS INFECTION, ELEVATED TROP, HLD, CHRONIC ANEMIA, PHYSICAL DEBILITY, ENCEPHALOPATHY, HTN, CONTINUE TO RUN A LITTLE HIGH TREATMENTS / RESULTS AND LOCATION IN EMR: PN DR. SINGLETARY 11-21-20: SHE HAD F/U WITH ENT TO REASSESS THIS, CONTINUE TO MONITOR HTN, IF REMAINS ELEVATED BY TOMORROW WE WILL ADD THERAPY. ER NOTES 11-19-20: NS IVF CDS Signature: Alize Anna Phone #: [phone] Date/Time: 11-24-20 This is a permanent part of the Medical Record [facility]
[2020-11-24] MEDS: Amlodipine 5 MG TAB PO SCH ×2 (13:01→13:56)
--- NOTE | 2020-11-24 17:01 | PDOC.HOSPP ---
- Subjective Encounter Date: 11/24/20 Subjective: Feels well. No complaints. Says she is breathing comfortably just feels fatigued. - Objective Vital Signs & Weight: Vital Signs (12 hours) Temp Pulse Resp BP BP BP BP 11/24/20 13:56 50 L 11/24/20 13:10 126/58 L 124/58 L 11/24/20 13:05 97.7 F 56 L 20 133/79 11/24/20 11:28 146/68 H 11/24/20 07:48 97.6 F 51 L 20 157/72 H BP Pulse Ox Pulse Ox Pulse Ox 11/24/20 13:56 11/24/20 13:10 146/62 H 11/24/20 13:05 95 11/24/20 11:28 95 99 11/24/20 07:48 97 Weight Weight 108 lb 12.8 oz I&O: 11/23/20 11/24/20 11/25/20 06:59 06:59 06:59 Intake Total 2579 1025 Output Total 1050 600 Balance 1529 425 Result Diagrams: 11/24/20 08:49 11/24/20 08:49 Hospitalist ROS - Medication Medications: Active Medications Generic Name Dose Route Start Last Admin Trade Name Freq PRN Reason Stop Dose Admin Acetaminophen 650 mg 11/19/20 23:58 11/24/20 07:39 Acetaminophen 325 Mg Tab PO 650 mg Q4H PRN Administration Headache/Fever/Mild Pain (1-3) Amlodipine Besylate 5 mg 11/24/20 09:00 11/24/20 13:56 Amlodipine 5 Mg Tab PO Not Given DAILY [facility] Aspirin 81 mg 11/20/20 09:00 11/24/20 07:38 Aspirin 81 Mg Enteric Coated Tablet PO 81 mg DAILY ANNEMARIE Administration Atorvastatin Calcium 20 mg 11/20/20 21:00 11/23/20 20:58 Atorvastatin Calcium 20 Mg Tab PO 20 mg HS ANNEMARIE Administration Clopidogrel Bisulfate 75 mg 11/23/20 09:00 11/24/20 07:39 Clopidogrel Bisulfate 75 Mg Tab PO 75 mg DAILY ANNEMARIE Administration Diltiazem HCl 240 mg 11/20/20 21:00 11/23/20 21:56 Diltiazem Hcl Cd 240 Mg Capsule PO 240 mg HS ANNEMARIE Administration Doxazosin Mesylate 1 mg 11/23/20 09:00 11/24/20 07:41 Doxazosin 2 Mg Tab PO 1 mg DAILY ANNEMARIE Administration Enoxaparin Sodium 40 mg 11/20/20 09:00 11/24/20 07:38 Enoxaparin Sodium 40 Mg/0.4 Ml Syringe SC 40 mg 0900 ANNEMARIE Administration Famotidine 20 mg 11/21/20 21:00 11/24/20 07:38 Famotidine 20 Mg Tab PO 20 mg BID ANNEMARIE Administration Hydralazine HCl 10 mg 11/22/20 11:05 11/22/20 21:11 Hydralazine 20 Mg/Ml Vial SLOW IVP 10 mg Q4H PRN Administration Hypertension - Exam General Appearance: NAD, awake alert General - other findings: Profoundly hearing impaired, especially on the right Heart: RRR, no murmur, no gallops, no rubs, normal peripheral pulses Respiratory: CTAB, no wheezes, no rales, no ronchi, normal chest expansion, no tachypnea, normal percussion Gastrointestinal: soft, non-tender, non-distended, normal bowel sounds, no palpable masses, no hepatomegaly, no splenomegaly, no bruit Extremities: no cyanosis, no clubbing, no edema Musculoskeletal: generalized weakness Psychiatric: normal affect, normal behavior Hosp A/P (1) COVID-19 virus infection Code(s): U07.1 - COVID-19 Status: Acute (2) S/P TAVR (transcatheter aortic valve replacement) Code(s): Z95.2 - PRESENCE OF PROSTHETIC HEART VALVE Status: Acute (3) Elevated troponin Code(s): R77.8 - OTHER SPECIFIED ABNORMALITIES OF PLASMA PROTEINS Status: Acu te (4) HLD (hyperlipidemia) Code(s): E78.5 - HYPERLIPIDEMIA, UNSPECIFIED Status: Chronic Qualifiers: Hyperlipidemia type: unspecified Qualified Code(s): E78.5 - Hyperlipidemia, unspecified (5) Chronic anemia Code(s): D64.9 - ANEMIA, UNSPECIFIED Status: Chronic (6) DJD (degenerative joint disease) Code(s): M19.90 - UNSPECIFIED OSTEOARTHRITIS, UNSPECIFIED SITE Status: Chronic (7) Dyslipidemia Code(s): E78.5 - HYPERLIPIDEMIA, UNSPECIFIED Status: Chronic (8) Hypertension Code(s): I10 - ESSENTIAL (PRIMARY) HYPERTENSION Status: Chronic (9) Rheumatoid arthritis Code(s): M06.9 - RHEUMATOID ARTHRITIS, UNSPECIFIED Status: Chronic (10) Physical debility Code(s): R53.81 - OTHER MALAISE Status: Acute - Plan The patient is a 84-year-old female who presented to the emergency department with profound generalized weakness. Apparently recently tested positive for COVID-19. Physical debility: Likely due to the effects of the COVID-19 infection. Spoke with the patient's daughter. Patient lives at home with her who is currently hospitalized with COVID-19 pneumonia. Patient's daughter indicated that she has been essentially collapsing at home because of her profound weakness. We will request physical therapy evaluation. May also need OT evaluation. Discussed the possibility of therapy with the patient's daughter and she is firmly in favor. Appreciate physical therapy evaluation. Recommendation is for rehab. On 11/24/2020 physical therapy attempted to get the patient up and moving and she had an episode of slight decreased consciousness. She was placed back in bed vital signs appeared to be stable. Orthostatics were negative. COVID-19 virus infection: Unknown when she actually tested positive. No significant evidence of respiratory symptoms. Appears to largely be causing generalized debility. Continue isolation. Inflammatory markers are not significantly high other than the D-dimer at 3. Repeat ordered for 11/23/2020. Repeat Covid test on 11/22/2020 to confirm diagnosis was positive. Repeat chest x-ray on 11/23/2020 remains negative. Elevated troponins: Appear to be the patient's baseline based on previous labs. Encephalopathy: Appears to be more related to the patient's profound hearing loss. Status post TAVR: Stable. Hypertension: Continue with diltiazem CD 240 mg p.o. daily. Cardura 2 mg daily was resumed on 11/23/2020. Hyperlipidemia: Continue simvastatin 40 mg nightly. History of rheumatoid arthritis.: Currently on no active medications. DVT prophylaxis: Lovenox 40 mg daily PUD prophylaxis: Famotidine. Disposition: Patient is medically stable for discharge as of 11/23/2020. Awaiting OT evaluation and case management assistance and hopefully finding rehab placement for this patient.
[2020-11-24] MEDS: Atorvastatin Calcium 20 MG TAB PO SCH (20:26)
[2020-11-25] MEDS: Aspirin 81 mg Enteric Coated Tablet PO SCH (08:22)
[2020-11-25] MEDS: Enoxaparin Sodium 40 MG/0.4 ML SYRINGE SC SCH (08:22)
[2020-11-25] MEDS: Clopidogrel Bisulfate 75 MG TAB PO SCH (08:23)
[2020-11-25] MEDS: Famotidine 20 MG TAB PO SCH ×2 (08:23→21:02)
[2020-11-25] MEDS: Amlodipine 5 MG TAB PO SCH (08:23)
[2020-11-25] MEDS: Doxazosin 2 MG TAB PO SCH (08:23)
--- NOTE | 2020-11-25 16:51 | PDOC.HOSPP ---
- Subjective Encounter Date: 11/25/20 Subjective: Again the patient reports she is doing okay. She has no reports of shortness of breath. Denies any other specific complaints. - Objective Vital Signs & Weight: Vital Signs (12 hours) Temp Pulse Resp BP BP BP Pulse Ox 11/25/20 12:00 98.3 F 76 16 134/60 159/84 H 11/25/20 08:23 54 L 11/25/20 08:00 98.1 F 56 L 16 173/74 H 95 Weight Weight 108 lb 12.8 oz I&O: 11/24/20 11/25/20 11/26/20 06:59 06:59 06:59 Intake Total 1025 120 Output Total 600 550 Balance 425 -430 Result Diagrams: 11/24/20 08:49 11/24/20 08:49 Hospitalist ROS - Medication Medications: Active Medications Generic Name Dose Route Start Last Admin Trade Name Freq PRN Reason Stop Dose Admin Acetaminophen 650 mg 11/19/20 23:58 11/24/20 07:39 Acetaminophen 325 Mg Tab PO 650 mg Q4H PRN Administration Headache/Fever/Mild Pain (1-3) Amlodipine Besylate 5 mg 11/24/20 09:00 11/25/20 08:23 Amlodipine 5 Mg Tab PO 5 mg DAILY ANNEMARIE Administration Aspirin 81 mg 11/20/20 09:00 11/25/20 08:22 Aspirin 81 Mg Enteric Coated Tablet PO 81 mg DAILY ANNEMARIE Administration Atorvastatin Calcium 20 mg 11/20/20 21:00 11/24/20 20:26 Atorvastatin Calcium 20 Mg Tab PO 20 mg HS ANNEMARIE Administration Clopidogrel Bisulfate 75 mg 11/23/20 09:00 11/25/20 08:23 Clopidogrel Bisulfate 75 Mg Tab PO 75 mg DAILY ANNEMARIE Administration Diltiazem HCl 240 mg 11/20/20 21:00 11/24/20 20:26 Diltiazem Hcl Cd 240 Mg Capsule PO 240 mg HS ANNEMARIE Administration Doxazosin Mesylate 1 mg 11/23/20 09:00 11/25/20 08:23 Doxazosin 2 Mg Tab PO 1 mg DAILY ANNEMARIE Administration Enoxaparin Sodium 40 mg 11/20/20 09:00 11/25/20 08:22 Enoxaparin Sodium 40 Mg/0.4 Ml Syringe SC 40 mg 0900 ANNEMARIE Administration Famotidine 20 mg 11/21/20 21:00 11/25/20 08:23 Famotidine 20 Mg Tab PO 20 mg BID ANNEMARIE Administration Hydralazine HCl 10 mg 11/22/20 11:05 11/22/20 21:11 Hydralazine 20 Mg/Ml Vial SLOW IVP 10 mg Q4H PRN Administration Hypertension - Exam General Appearance: NAD, awake alert Heart: RRR, no murmur, no gallops, no rubs, normal peripheral pulses Respiratory: CTAB, no wheezes, no rales, no ronchi, normal chest expansion, no tachypnea, normal percussion Gastrointestinal: soft, non-tender, non-distended, normal bowel sounds, no palpable masses, no hepatomegaly, no splenomegaly, no bruit Extremities: no cyanosis, no clubbing, no edema Neurological: no focal deficits Musculoskeletal: generalized weakness Psychiatric: normal affect, normal behavior Hosp A/P (1) COVID-19 virus infection Code(s): U07.1 - COVID-19 Status: Acute (2) S/P TAVR (transcatheter aortic valve replacement) Code(s): Z95.2 - PRESENCE OF PROSTHETIC HEART VALVE Status: Acute (3) Elevated troponin Code(s): R77.8 - OTHER SPECIFIED ABNORMALITIES OF PLASMA PROTEINS Status: Acute (4) HLD (hyperlipidemia) Code(s): E78.5 - HYPERLIPIDEMIA, UNSPECIFIED Status: Chronic Qualifiers: Hyperlipidemia type: unspecified Qualified Code(s): E78.5 - Hyperlipidemia, unspecified (5) Chronic anemia Code(s): D64.9 - ANEMIA, UNSPECIFIED Status: Chronic (6) DJD (degenerative joint disease) Code(s): M19.90 - UNSPECIFIED OSTEOARTHRITIS, UNSPECIFIED SITE Status: Chronic (7) Dyslipidemia Code(s): E78.5 - HYPERLIPIDEMIA, UNSPECIFIED Status: Chronic (8) Hypertension Code(s): I10 - ESSENTIAL (PRIMARY) HYPERTENSION Status: Chronic (9) Rheumatoid arthritis Code(s): M06.9 - RHEUMATOID ARTHRITIS, UNSPECIFIED Status: Chronic (10) Physical debility Code(s): R53.81 - OTHER MALAISE Status: Acute - Plan The patient is a 84-year-old female who presented to the emergency department with profound generalized weakness. Apparently recently tested positive for COVID-19. COVID-19 virus infection: Unknown when she actually tested positive. No significant evidence of respiratory symptoms. Appears to largely be causing generalized debility. Continue isolation. Inflammatory markers are not significantly high other than the D-dimer at 3. Repeat ordered for 11/23/2020. Repeat Covid test on 11/22/2020 to confirm diagnosis was positive. Repeat chest x-ray on 11/23/2020 remains negative. Physical debility: Likely due to the effects of the COVID-19 infection. Spoke with the patient's daughter. Patient lives at home with her who is currently hospitalized with COVID-19 pneumonia. Patient's daughter indicated that she has been essentially collapsing at home because of her profound weakness. We will request physical therapy evaluation. May also need OT evaluation. Discussed the possibility of therapy with the patient's daughter and she is firmly in favor. Appreciate physical therapy evaluation. Recommendation is for rehab. On 11/24/2020 physical therapy attempted to get the patient up and moving and she had an episode of slight decreased consciousness. She was placed back in bed vital signs appeared to be stable. Orthostatics were negative. Elevated troponins: Appear to be the patient's baseline based on previous labs. Encephalopathy: Appears to be more related to the patient's profound hearing loss. Status post TAVR: Stable. Hypertension: Continue with diltiazem CD 240 mg p.o. daily. Cardura 2 mg daily was resumed on 11/23/2020. Permitting a slightly higher blood pressure to allow her to participate better with therapy. Hyperlipidemia: Continue simvastatin 40 mg nightly. History of rheumatoid arthritis.: Currently on no active medications. DVT prophylaxis: Lovenox 40 mg daily PUD prophylaxis: Famotidine. Disposition: Patient is medically stable for discharge as of 11/23/2020. Awaiting OT evaluation and case management assistance and hopefully finding rehab placement for this patient.
[2020-11-25] MEDS: Atorvastatin Calcium 20 MG TAB PO SCH (21:02)
[2020-11-26] MEDS: Doxazosin 2 MG TAB PO SCH (11:23)
[2020-11-26] MEDS: Famotidine 20 MG TAB PO SCH (11:23)
[2020-11-26] MEDS: Aspirin 81 mg Enteric Coated Tablet PO SCH (11:23)
[2020-11-26] MEDS: Amlodipine 5 MG TAB PO SCH (11:23)
[2020-11-26] MEDS: Enoxaparin Sodium 40 MG/0.4 ML SYRINGE SC SCH (11:24)
[2020-11-26] MEDS: Clopidogrel Bisulfate 75 MG TAB PO SCH (11:24)
[2020-11-26 16:58] VITALS: BP 161/77; TEMP 98.6
--- NOTE | 2020-11-27 18:23 | PDOC.DS.DS ---
Provider - Provider Date of Admission: 11/21/20 15:50 Date of Discharge: 11/26/20 Admitting Provider: Devan Foy Primary Care Physician: Ricco Penn MD Course - Hospital Course Hospital Course: The patient is a 84-year-old female who presented to the emergency department with profound generalized weakness. Apparently recently tested positive for COVID-19. COVID-19 virus infection: Unknown when she actually tested positive. No significant evidence of respiratory symptoms. Appears to largely be causing generalized debility. Continued isolation. Inflammatory markers are not significantly high other than the D-dimer at 3. Repeat ordered for 11/23/2020. Repeat Covid test on 11/22/2020 to confirm diagnosis was positive. Repeat chest x-ray on 11/23/2020 remains negative. Physical debility: Likely due to the effects of the COVID-19 infection. Spoke with the patient's daughter. Patient lives at home with her who is currently hospitalized with COVID-19 pneumonia. Patient's daughter indicated that she has been essentially collapsing at home because of her profound weakness. We will request physical therapy evaluation. May also need OT evaluation. Discussed the possibility of therapy with the patient's daughter and she is firmly in favor. Appreciate physical therapy evaluation. Recommendation is for rehab. On 11/24/2020 physical therapy attempted to get the patient up and moving and she had an episode of slight decreased consciousness. She was placed back in bed vital signs appeared to be stable. Orthostatics were negative. Elevated troponins: Appear to be the patient's baseline based on previous labs. Encephalopathy: Appears to be more related to the patient's profound hearing loss. Status post TAVR: Stable. Hypertension: Continue with diltiazem CD 240 mg p.o. daily. Cardura 2 mg daily was resumed on 11/23/2020. Permitting a slightly higher blood pressure to allow her to participate better with therapy. Hyperlipidemia: Continue simvastatin 40 mg nightly. History of rheumatoid arthritis.: Currently on no active medications. Disposition: Patient is medically stable for discharge as of 11/23/2020. Accepted in transfer to [facility] for rehab. Resuscitation Status: 11/19/20 23:58 Resuscitation Status Routine Resuscitation Status: FULL: Full Resuscitation - Labs Lab Results: 11/24/20 08:49 11/24/20 08:49 - Physical Exam Vitals: Weight Weight 108 lb 12.8 oz Physical Exam: The patient was seen and examined on the day of discharge. Problem - Problem (1) COVID-19 virus infection Code(s): U07.1 - COVID-19 Status: Acute (2) S/P TAVR (transcatheter aortic valve replacement) Code(s): Z95.2 - PRESENCE OF PROSTHETIC HEART VALVE Status: Acute (3) Elevated troponin Code(s): R77.8 - OTHER SPECIFIED ABNORMALITIES OF PLASMA PROTEINS Status: Acute (4) HLD (hyperlipidemia) Code(s): E78.5 - HYPERLIPIDEMIA, UNSPECIFIED Status: Chronic Qualifiers: Hyperlipidemia type: unspecified Qualified Code(s): E78.5 - Hyperlipidemia, unspecified (5) Chronic anemia Code(s): D64.9 - ANEMIA, UNSPECIFIED Status: Chronic (6) DJD (degenerative joint disease) Code(s): M19.90 - UNSPECIFIED OSTEOARTHRITIS, UNSPECIFIED SITE Status: Chronic (7) Dyslipidemia Code(s): E78.5 - HYPERLIPIDEMIA, UNSPECIFIED Status: Chronic (8) Hypertension Code(s): I10 - ESSENTIAL (PRIMARY) HYPERTENSION Status: Chronic (9) Rheumatoid arthritis Code(s): M06.9 - RHEUMATOID ARTHRITIS, UNSPECIFIED Status: Chronic (10) Physical debility Code(s): R53.81 - OTHER MALAISE Status: Acute Plan - Discharge Medications Home Medications: Medication Instructions Recorded Confirmed Type Alendronate Sodium 70 mg PO Q7D 06/28/19 11/20/20 History Aspirin [Aspir-Low] 81 mg PO DAILY 06/28/19 11/20/20 History Calcium Cit/Mag/D3/Zn/Sap Administrator/Reji 1 tablet PO BID 06/28/19 11/20/20 History [Calcium Citrate Plus Tablet] Diltiazem HCl [Diltiazem 24Hr CD] 240 mg PO HS 06/28/19 11/20/20 History Doxazosin [Cardura] 1 mg PO DAILY 06/28/19 11/20/20 History Simvastatin 40 mg PO HS 06/28/19 11/20/20 History traMADol HCl [Tramadol HCl] 50 mg PO QID PRN 06/28/19 11/20/20 History Clopidogrel Bisulfate [Clopidogrel] 75 mg PO DAILY 11/20/20 11/20/20 History Amlodipine [Norvasc] 5 mg PO DAILY tab 11/26/20 Rx Calcium Carbonate [Tums] 1,000 mg PO Q4H PRN tab 11/26/20 Rx Enoxaparin Sodium [Lovenox] 40 mg SC 0900 syringe 11/26/20 Rx Famotidine [Pepcid] 20 mg PO BID tab 11/26/20 Rx Allergies: No Known Allergies Allergy (Verified 11/20/20 20:02) - Discharge Instructions Activity:: Activity as Tolerated Nourishment:: Heart Healthy Diet Therapies:: Occupational Therapy, Physical Therapy - Follow up Plan Referrals: Ricco Penn MD [Primary Care Provider] - Disposition: [facility]ILITY Quality - Care Measures CORE MEASURES:: N/A
== END 2020-11-26 17:19 | DRG 178 ==
LOC: ERS 21:21 → ERHOLD 23:15 → 2SW 11-20 22:05 → OBSVTOIN 11-21 15:50
PROVIDERS: ADMIT Internal Medicine; ATTEND Internal Medicine
PROC: 8E0ZXY6 Isolation (ICD-10-PCS; principal; 2020-11-21)
DX: U07.1 COVID-19 (principal); I24.8 Other forms of acute ischemic heart disease; G93.40 Encephalopathy, unspecified; E78.5 Hyperlipidemia, unspecified; I10 Essential (primary) hypertension; M06.9 Rheumatoid arthritis, unspecified; I35.0 Nonrheumatic aortic (valve) stenosis; M19.90 Unspecified osteoarthritis, unspecified site; D64.9 Anemia, unspecified; H91.90 Unspecified hearing loss, unspecified ear; Z79.82 Long term (current) use of aspirin; Z79.899 Other long term (current) drug therapy; Z95.2 Presence of prosthetic heart valve; Z86.73 Personal history of transient ischemic attack (TIA), and cerebral infarction without residual deficits
CPT/HCPCS: 36415; 51701; 71045; 80053; 81003; 81015; 82553; 82728; 83735; 83880; 84484; 85007; 85025; 85027; 85379; 86140; 87635; 93005; 96372; G0378; J0360; J1650; U0003

== ENCOUNTER 2021-07-09 10:32 | Emergency (ER) | payer MEDICARE, OTHER ==
[2021-07-09 11:08] LABS: #Eosinphils 0.2 thou/uL (0.0-0.7); #Lymphocytes 1.1 thou/uL (1.20-3.40); #Monocytes 0.5 thou/uL (0.11-0.59); #Neutrophils 4.8 thou/uL (1.40-6.50); %Basophils 0.3 % (0.0-1.0); %Eosinophils 2.5 % (0.0-10.0); %Lymphocytes 17.1 % (21.0-51.0); %Monocytes 7.1 % (0.0-10.0); Hemoglobin 10.3 g/dL (12.0-16.0); Mean Corpuscular HGB CONC 32.8 g/dL (32.0-36.0); Mean Corpuscular Volume 91.6 fL (78.0-98.0); Mean Platelet Volume 10.9 fL (7.4-10.4); Platelet Count 176 thou/uL (130-400); RBC Distribution Width 13.2 % (11.5-14.5); Red Blood Cell (RBC) Count 3.42 mill/uL (4.20-5.40); White Blood Cell (WBC) Count 6.6 thou/uL (4.8-10.8)
[2021-07-09 11:41] LABS: ALT (SGPT) 11 U/L (8-55); AST (SGOT) 19 U/L (5-34); Albumin 3.9 g/dL (3.4-4.8); Alkaline Phosphatase 90 U/L (40-110); Anion Gap 13 mmol/L (10-20); BUN (Urea Nitrogen) 24 mg/dL (9.8-20.1); Bilirubin, Total 0.3 mg/dL (0.2-1.2); Calc. Creatinine Clearance 0 mL/min (70-130); Calcium 10.1 mg/dL (7.8-10.44); Carbon Dioxide 22 mmol/L (23-31); Chloride 109 mmol/L (98-107); Globulin 2.9 g/dL (2.4-3.5); Glucose 110 mg/dL (83-110); Potassium 4.2 mmol/L (3.5-5.1); Protein, Total 6.8 g/dL (5.8-8.1); Sodium 140 mmol/L (136-145)
[2021-07-09 14:36] LABS: Troponin I Less than 0.010 ng/mL (< 0.028)
== END 2021-07-09 15:27 | disposition home or self-care (01) ==
LOC: ERS 10:32
DX: R07.89 Other chest pain (principal); I10 Essential (primary) hypertension; E78.5 Hyperlipidemia, unspecified; M06.9 Rheumatoid arthritis, unspecified; D64.9 Anemia, unspecified; Z86.73 Personal history of transient ischemic attack (TIA), and cerebral infarction without residual deficits
CPT/HCPCS: 71045; 80053; 84484 ×2; 85025; 93005; 99285; U0003; U0005; 36415

== ENCOUNTER 2021-11-12 15:50 | Emergency (ER) | payer MEDICARE, OTHER ==
[2021-11-12] MEDS ORDERED: Acetaminophen 500 MG TAB ONE (17:11)
== END 2021-11-12 17:14 | disposition home or self-care (01) ==
LOC: ERS 15:50
DX: S70.02XA Contusion of left hip, initial encounter (principal); W19.XXXA Unspecified fall, initial encounter; I10 Essential (primary) hypertension; E78.5 Hyperlipidemia, unspecified; D64.9 Anemia, unspecified; M19.90 Unspecified osteoarthritis, unspecified site

== ENCOUNTER 2021-11-16 09:43 | Emergency (ER) | payer MEDICARE, OTHER ==
[2021-11-16 10:36] LABS: #Eosinphils 0.3 thou/uL (0.0-0.7); #Lymphocytes 0.9 thou/uL (1.20-3.40); #Monocytes 0.3 thou/uL (0.11-0.59); #Neutrophils 4.2 thou/uL (1.40-6.50); %Basophils 0.7 % (0.0-1.0); %Eosinophils 5.6 % (0.0-10.0); %Lymphocytes 15.5 % (21.0-51.0); %Monocytes 5.2 % (0.0-10.0); %Neutrophils 73.1 % (42.0-75.0); Hemoglobin 10.6 g/dL (12.0-16.0); Mean Corpuscular HGB CONC 32.3 g/dL (32.0-36.0); Mean Corpuscular Hemoglobin 30.9 pg (27.0-31.0); Mean Corpuscular Volume 95.8 fL (78.0-98.0); Mean Platelet Volume 10.5 fL (7.4-10.4); Platelet Count 173 thou/uL (130-400); RBC Distribution Width 12.3 % (11.5-14.5); Red Blood Cell (RBC) Count 3.42 mill/uL (4.20-5.40); White Blood Cell (WBC) Count 5.7 thou/uL (4.8-10.8)
[2021-11-16 11:05] LABS: ALT (SGPT) 26 U/L (8-55); AST (SGOT) 28 U/L (5-34); Albumin 3.9 g/dL (3.4-4.8); Alkaline Phosphatase 88 U/L (40-110); Anion Gap 10 mmol/L (10-20); BUN (Urea Nitrogen) 22 mg/dL (9.8-20.1); Bilirubin, Total 0.3 mg/dL (0.2-1.2); Calc. Creatinine Clearance 0 mL/min (70-130); Calcium 9.9 mg/dL (7.8-10.44); Carbon Dioxide 27 mmol/L (23-31); Chloride 106 mmol/L (98-107); Globulin 2.7 g/dL (2.4-3.5); Glucose 103 mg/dL (83-110); Potassium 4.1 mmol/L (3.5-5.1); Protein, Total 6.6 g/dL (5.8-8.1); Sodium 139 mmol/L (136-145)
[2021-11-16 13:00] LABS: Bacteria/HPF None Seen HPF (None Seen); Bilirubin Negative (Negative); Blood, Urine Negative (Negative); Clarity Turbid (Clear); Glucose, Urine (Dipstick) Normal (Negative); Ketone, Urine Negative (Negative); Leukocyte 25 Leu/uL (Negative); Nitrite Negative (Negative); Protein, Urine (Dipstick) 30 mg/dL (Neg-Trace); RBC/HPF 0-3 HPF (0-3); Specific Gravity, Urine 1.026 (1.002-1.036); Urobilinogen Normal mg/dL (Less than 2); WBC/HPF 0-3 HPF (0-3); pH, Urine 5.5 (5.0-9.0)
[2021-11-16 13:01] LABS: Calcium Oxalate Crystals 2+ HPF (None Seen)
[2021-11-16 13:09] LABS: Troponin I Less than 0.010 ng/mL (< 0.028)
== END 2021-11-16 13:49 | disposition home or self-care (01) ==
LOC: ERS 09:43
DX: N17.9 Acute kidney failure, unspecified (principal); R53.81 Other malaise; D64.9 Anemia, unspecified; E78.5 Hyperlipidemia, unspecified; I10 Essential (primary) hypertension; Z79.899 Other long term (current) drug therapy
CPT/HCPCS: 36415; 80053; 81003; 81015; 84484; 85025; 87086; 93005

== ENCOUNTER 2022-01-05 07:46 | Inpatient (IN) | payer MEDICARE, OTHER ==
[2022-01-05 08:43] LABS: #Eosinphils 0.2 thou/uL (0.0-0.7); #Lymphocytes 1.2 thou/uL (1.20-3.40); #Monocytes 0.4 thou/uL (0.11-0.59); #Neutrophils 6.6 thou/uL (1.40-6.50); %Basophils 0.2 % (0.0-1.0); %Eosinophils 2.2 % (0.0-10.0); %Monocytes 5.1 % (0.0-10.0); %Neutrophils 78.5 % (42.0-75.0); Hemoglobin 11.3 g/dL (12.0-16.0); Mean Corpuscular HGB CONC 31.9 g/dL (32.0-36.0); Mean Corpuscular Hemoglobin 30.9 pg (27.0-31.0); Mean Corpuscular Volume 96.8 fL (78.0-98.0); Mean Platelet Volume 10.9 fL (7.4-10.4); Platelet Count 201 thou/uL (130-400); RBC Distribution Width 11.6 % (11.5-14.5); Red Blood Cell (RBC) Count 3.67 mill/uL (4.20-5.40); White Blood Cell (WBC) Count 8.4 thou/uL (4.8-10.8)
[2022-01-05 09:02] LABS: ALT (SGPT) 334 U/L (8-55); AST (SGOT) 537 U/L (5-34); Alkaline Phosphatase 92 U/L (40-110); Anion Gap 10 mmol/L (10-20); BUN (Urea Nitrogen) 30 mg/dL (9.8-20.1); Bilirubin, Total 0.4 mg/dL (0.2-1.2); Calc. Creatinine Clearance 0 mL/min (70-130); Calcium 10.6 mg/dL (7.8-10.44); Carbon Dioxide 31 mmol/L (23-31); Chloride 104 mmol/L (98-107); Globulin 2.8 g/dL (2.4-3.5); Glucose 101 mg/dL (83-110); Potassium 4.3 mmol/L (3.5-5.1); Protein, Total 6.8 g/dL (5.8-8.1); Sodium 141 mmol/L (136-145)
[2022-01-05 09:28] LABS: CKMB 166.1 ng/mL (0-6.6)
[2022-01-05] MEDS ORDERED: Ondansetron PF 4 MG/2 ML Vial IVP PRN (10:16)
[2022-01-05] MEDS ORDERED: Acetaminophen 325 MG TAB PO PRN (10:16)
[2022-01-05] MEDS ORDERED: Ondansetron ODT 4 MG TAB PO PRN (10:16)
[2022-01-05] MEDS ORDERED: Acetaminophen 650 MG Suppository PR PRN (10:16)
[2022-01-05 15:03] LABS: CKMB 169.3 ng/mL (0-6.6)
[2022-01-05 18:52] VITALS: BMI 20.8
[2022-01-05] MEDS ORDERED: hydrALAZINE 20 MG/ML VIAL SLOW IVP PRN (18:56)
[2022-01-05 20:52] LABS: SARS-CoV-2 PCR by NAA Not Detected (NotDetected)
[2022-01-05] MEDS: Sodium Chloride 0.9% 1,000 ML IV SCH ×2 (22:31→23:57)
[2022-01-06 05:11] LABS: #Eosinphils 0.1 thou/uL (0.0-0.7); #Lymphocytes 1.1 thou/uL (1.20-3.40); #Monocytes 0.7 thou/uL (0.11-0.59); #Neutrophils 8.1 thou/uL (1.40-6.50); %Basophils 0.4 % (0.0-1.0); %Eosinophils 1.4 % (0.0-10.0); %Lymphocytes 11.2 % (21.0-51.0); %Monocytes 6.5 % (0.0-10.0); %Neutrophils 80.6 % (42.0-75.0); Hemoglobin 11.1 g/dL (12.0-16.0); Mean Corpuscular HGB CONC 32.2 g/dL (32.0-36.0); Mean Corpuscular Hemoglobin 31.3 pg (27.0-31.0); Mean Corpuscular Volume 97.1 fL (78.0-98.0); Mean Platelet Volume 10.7 fL (7.4-10.4); Platelet Count 207 thou/uL (130-400); RBC Distribution Width 11.5 % (11.5-14.5); Red Blood Cell (RBC) Count 3.54 mill/uL (4.20-5.40)
[2022-01-06 05:30] LABS: Anion Gap 15 mmol/L (10-20); BUN (Urea Nitrogen) 27 mg/dL (9.8-20.1); Calc. Creatinine Clearance 33 mL/min (70-130); Calcium 10.5 mg/dL (7.8-10.44); Carbon Dioxide 23 mmol/L (23-31); Chloride 107 mmol/L (98-107); Glucose 95 mg/dL (83-110); Potassium 3.8 mmol/L (3.5-5.1); Sodium 141 mmol/L (136-145)
[2022-01-06] MEDS ORDERED: cefTRIAXone\\ROCEPHIN 1 GM in Sodium Chloride 0.9% 100 ML IVPB SCH (09:00)
[2022-01-06] MEDS: Heparin 5,000 UNITS/ML VIAL SC SCH ×2 (09:15→20:34)
[2022-01-06] MEDS ORDERED: metroNIDAZOLE 500 MG in Premix Bag 1 BAG IVPB SCH (12:00)
[2022-01-06 14:32] LABS: CKMB 169.5 ng/mL (0-6.6)
[2022-01-06] MEDS: Sodium Chloride 0.9% 1,000 ML IV SCH (15:55)
[2022-01-06] MEDS ORDERED: Amlodipine 5 MG TAB PO SCH (17:45)
[2022-01-06] MEDS: Atorvastatin Calcium 20 MG TAB PO SCH (20:34)
[2022-01-07] MEDS: Sodium Chloride 0.9% 1,000 ML IV SCH ×2 (02:50→16:05)
[2022-01-07 05:05] LABS: #Eosinphils 0.3 thou/uL (0.0-0.7); #Lymphocytes 0.9 thou/uL (1.20-3.40); #Monocytes 0.5 thou/uL (0.11-0.59); #Neutrophils 6.6 thou/uL (1.40-6.50); %Basophils 0.3 % (0.0-1.0); %Eosinophils 3.5 % (0.0-10.0); %Lymphocytes 11.3 % (21.0-51.0); %Monocytes 5.7 % (0.0-10.0); %Neutrophils 79.1 % (42.0-75.0); Hemoglobin 11.2 g/dL (12.0-16.0); Mean Corpuscular HGB CONC 33.2 g/dL (32.0-36.0); Mean Corpuscular Hemoglobin 31.6 pg (27.0-31.0); Mean Corpuscular Volume 95.4 fL (78.0-98.0); Mean Platelet Volume 10.6 fL (7.4-10.4); Platelet Count 198 thou/uL (130-400); RBC Distribution Width 11.6 % (11.5-14.5); Red Blood Cell (RBC) Count 3.55 mill/uL (4.20-5.40); White Blood Cell (WBC) Count 8.4 thou/uL (4.8-10.8)
[2022-01-07 05:19] LABS: Anion Gap 15 mmol/L (10-20); BUN (Urea Nitrogen) 23 mg/dL (9.8-20.1); Calc. Creatinine Clearance 40 mL/min (70-130); Carbon Dioxide 22 mmol/L (23-31); Chloride 106 mmol/L (98-107); Glucose 89 mg/dL (83-110); Potassium 3.6 mmol/L (3.5-5.1); Sodium 139 mmol/L (136-145)
[2022-01-07] MEDS: Clopidogrel Bisulfate 75 MG TAB PO SCH (08:37)
[2022-01-07] MEDS: hydrALAZINE 25 MG TAB PO SCH ×3 (08:37→20:43)
[2022-01-07] MEDS: Aspirin 81 mg Enteric Coated Tablet PO SCH (08:37)
[2022-01-07] MEDS: Heparin 5,000 UNITS/ML VIAL SC SCH ×2 (16:02→20:43)
[2022-01-07] MEDS: Atorvastatin Calcium 20 MG TAB PO SCH (20:43)
[2022-01-08 04:49] LABS: #Basophils 0.1 thou/uL (0.0-0.2); #Eosinphils 0.4 thou/uL (0.0-0.7); #Lymphocytes 1.1 thou/uL (1.20-3.40); #Monocytes 0.5 thou/uL (0.11-0.59); #Neutrophils 5.5 thou/uL (1.40-6.50); %Basophils 1.2 % (0.0-1.0); %Eosinophils 4.7 % (0.0-10.0); %Monocytes 6.9 % (0.0-10.0); %Neutrophils 72.2 % (42.0-75.0); Hemoglobin 10.6 g/dL (12.0-16.0); Mean Corpuscular HGB CONC 32.7 g/dL (32.0-36.0); Mean Corpuscular Hemoglobin 31.6 pg (27.0-31.0); Mean Corpuscular Volume 96.7 fL (78.0-98.0); Mean Platelet Volume 10.4 fL (7.4-10.4); Platelet Count 184 thou/uL (130-400); RBC Distribution Width 11.7 % (11.5-14.5); Red Blood Cell (RBC) Count 3.34 mill/uL (4.20-5.40); White Blood Cell (WBC) Count 7.6 thou/uL (4.8-10.8)
[2022-01-08] MEDS: Sodium Chloride 0.9% 1,000 ML IV SCH ×2 (04:55→18:20)
[2022-01-08 05:09] LABS: Anion Gap 14 mmol/L (10-20); BUN (Urea Nitrogen) 31 mg/dL (9.8-20.1); Calc. Creatinine Clearance 40 mL/min (70-130); Calcium 9.6 mg/dL (7.8-10.44); Carbon Dioxide 20 mmol/L (23-31); Chloride 109 mmol/L (98-107); Glucose 90 mg/dL (83-110); Potassium 3.7 mmol/L (3.5-5.1); Sodium 139 mmol/L (136-145)
[2022-01-08] MEDS: hydrALAZINE 25 MG TAB PO SCH ×3 (10:12→20:26)
[2022-01-08] MEDS: Heparin 5,000 UNITS/ML VIAL SC SCH ×2 (10:12→20:26)
[2022-01-08] MEDS: Aspirin 81 mg Enteric Coated Tablet PO SCH (10:12)
[2022-01-08] MEDS: Clopidogrel Bisulfate 75 MG TAB PO SCH (10:12)
[2022-01-08 13:09] LABS: Troponin I 0.085 ng/mL (< 0.028)
[2022-01-08] MEDS: Atorvastatin Calcium 20 MG TAB PO SCH (20:25)
[2022-01-09 05:20] LABS: #Eosinphils 0.4 thou/uL (0.0-0.7); #Lymphocytes 1.3 thou/uL (1.20-3.40); #Monocytes 0.6 thou/uL (0.11-0.59); #Neutrophils 5.9 thou/uL (1.40-6.50); %Basophils 0.1 % (0.0-1.0); %Eosinophils 4.6 % (0.0-10.0); %Lymphocytes 16.3 % (21.0-51.0); %Monocytes 7.4 % (0.0-10.0); %Neutrophils 71.5 % (42.0-75.0); Hemoglobin 10.2 g/dL (12.0-16.0); Mean Corpuscular HGB CONC 31.9 g/dL (32.0-36.0); Mean Corpuscular Hemoglobin 31.2 pg (27.0-31.0); Mean Corpuscular Volume 97.7 fL (78.0-98.0); Mean Platelet Volume 10.7 fL (7.4-10.4); Platelet Count 188 thou/uL (130-400); RBC Distribution Width 11.8 % (11.5-14.5); Red Blood Cell (RBC) Count 3.29 mill/uL (4.20-5.40); White Blood Cell (WBC) Count 8.2 thou/uL (4.8-10.8)
[2022-01-09 05:37] LABS: ALT (SGPT) 284 U/L (8-55); AST (SGOT) 251 U/L (5-34); Albumin 3.4 g/dL (3.4-4.8); Alkaline Phosphatase 84 U/L (40-110); Anion Gap 12 mmol/L (10-20); BUN (Urea Nitrogen) 24 mg/dL (9.8-20.1); Bilirubin, Total 0.3 mg/dL (0.2-1.2); CK (CPK) 3313 U/L (29-168); Calc. Creatinine Clearance 43 mL/min (70-130); Calcium 9.9 mg/dL (7.8-10.44); Carbon Dioxide 22 mmol/L (23-31); Chloride 109 mmol/L (98-107); Globulin 2.7 g/dL (2.4-3.5); Glucose 93 mg/dL (83-110); Protein, Total 6.1 g/dL (5.8-8.1); Sodium 139 mmol/L (136-145)
[2022-01-09] MEDS: Sodium Chloride 0.9% 1,000 ML IV SCH (08:38)
[2022-01-09] MEDS: Aspirin 81 mg Enteric Coated Tablet PO SCH (08:39)
[2022-01-09] MEDS: hydrALAZINE 25 MG TAB PO SCH (08:39)
[2022-01-09] MEDS: Clopidogrel Bisulfate 75 MG TAB PO SCH (08:39)
[2022-01-09] MEDS: Heparin 5,000 UNITS/ML VIAL SC SCH (08:39)
[2022-01-09] MEDS ORDERED: FLU VACC QS2021-22(65YR UP)/PF 240 MCG/0.7 ML SYRINGE IM ONE (09:00)
[2022-01-09 12:38] VITALS: BP 182/77; TEMP 98
== END 2022-01-09 14:10 | DRG 558 ==
LOC: ERS 07:46 → ERHOLD 10:19 → 2SW 18:33 → OBSVTOIN 01-07 17:22
PROVIDERS: ADMIT Hospitalist; ATTEND Internal Medicine
DX: M62.82 Rhabdomyolysis (principal); A09 Infectious gastroenteritis and colitis, unspecified; N17.9 Acute kidney failure, unspecified; E87.3 Alkalosis; Z20.822 Contact with and (suspected) exposure to COVID-19; E78.5 Hyperlipidemia, unspecified; I10 Essential (primary) hypertension; M19.90 Unspecified osteoarthritis, unspecified site; E86.9 Volume depletion, unspecified; I51.9 Heart disease, unspecified; I25.10 Atherosclerotic heart disease of native coronary artery without angina pectoris; Z86.16 Personal history of COVID-19; Z86.73 Personal history of transient ischemic attack (TIA), and cerebral infarction without residual deficits
CPT/HCPCS: 36415; 36416; 71045; 72170; 80048; 80053; 82550; 82553; 83880; 84443; 84484; 85025; 93005; 93306; 96365; 96372; 96375; G0378; J0360; J0696; J1644; J3490; J7050; U0003; U0005

== ENCOUNTER 2022-03-21 13:52 | Outpatient (CLI) | payer MEDICARE, OTHER | END 2022-03-21 13:53 | disposition home or self-care (01) | LOC: BICRAD 13:52 | PROVIDERS: ATTEND Surgery | DX: S22.008A Other fracture of unspecified thoracic vertebra, initial encounter for closed fracture (principal) | CPT/HCPCS: 72072 ==

== ENCOUNTER 2022-04-22 10:50 | Outpatient (CLI) | payer MEDICARE, OTHER | END 2022-04-22 10:51 | disposition home or self-care (01) | LOC: BICRAD 10:50 | PROVIDERS: ATTEND Surgery | DX: S22.008A Other fracture of unspecified thoracic vertebra, initial encounter for closed fracture (principal) | CPT/HCPCS: 72072 ==

== ENCOUNTER 2022-06-08 10:03 | Outpatient (CLI) | payer MEDICARE, OTHER | END 2022-06-08 10:04 | disposition home or self-care (01) | LOC: BICRAD 10:03 | PROVIDERS: ATTEND Surgery | DX: S22.001D Stable burst fracture of unspecified thoracic vertebra, subsequent encounter for fracture with routine healing (principal); S22.050A Wedge compression fracture of T5-T6 vertebra, initial encounter for closed fracture; S22.060A Wedge compression fracture of T7-T8 vertebra, initial encounter for closed fracture; S22.070A Wedge compression fracture of T9-T10 vertebra, initial encounter for closed fracture; M53.84 Other specified dorsopathies, thoracic region | CPT/HCPCS: 72072 ==

== ENCOUNTER 2022-06-10 10:36 | Emergency (ER) | payer MEDICARE, OTHER ==
[2022-06-10 11:41] LABS: #Eosinphils 0.2 thou/uL (0.0-0.7); #Monocytes 0.5 thou/uL (0.11-0.59); #Neutrophils 4.2 thou/uL (1.40-6.50); %Basophils 0.7 % (0.0-1.0); %Eosinophils 3.5 % (0.0-10.0); %Lymphocytes 16.1 % (21.0-51.0); %Monocytes 8.4 % (0.0-10.0); %Neutrophils 71.3 % (42.0-75.0); Hemoglobin 10.7 g/dL (12.0-16.0); Mean Corpuscular HGB CONC 32.8 g/dL (32.0-36.0); Mean Corpuscular Hemoglobin 31.7 pg (27.0-31.0); Mean Corpuscular Volume 96.8 fL (78.0-98.0); Mean Platelet Volume 11.9 fL (7.4-10.4); Platelet Count 158 thou/uL (130-400); RBC Distribution Width 12.3 % (11.5-14.5); Red Blood Cell (RBC) Count 3.37 mill/uL (4.20-5.40); White Blood Cell (WBC) Count 5.9 thou/uL (4.8-10.8)
[2022-06-10 11:55] LABS: Bilirubin Negative (Negative); Blood, Urine 1+ (Negative); Clarity Turbid (Clear); Glucose, Urine (Dipstick) Normal (Negative); Ketone, Urine Negative (Negative); Leukocyte Negative Leu/uL (Negative); Nitrite Negative (Negative); Protein, Urine (Dipstick) 30 mg/dL (Neg-Trace); Specific Gravity, Urine 1.021 (1.002-1.036); Squamous Epithelial 0-3 HPF (0-3); WBC/HPF 0-3 HPF (0-3); pH, Urine 5.5 (5.0-9.0)
[2022-06-10 11:55] LABS: ALT (SGPT) 9 U/L (8-55); AST (SGOT) 16 U/L (5-34); Alkaline Phosphatase 88 U/L (40-110); Anion Gap 14 mmol/L (10-20); BUN (Urea Nitrogen) 32 mg/dL (9.8-20.1); Bilirubin, Total 0.4 mg/dL (0.2-1.2); CK (CPK) 81 U/L (29-168); Calc. Creatinine Clearance 0 mL/min (70-130); Calcium 9.6 mg/dL (7.8-10.44); Carbon Dioxide 25 mmol/L (23-31); Chloride 105 mmol/L (98-107); Estimated GFR 35; Globulin 2.7 g/dL (2.4-3.5); Glucose 98 mg/dL (83-110); Potassium 4.5 mmol/L (3.5-5.1); Protein, Total 6.7 g/dL (5.8-8.1); Sodium 139 mmol/L (136-145)
[2022-06-10 12:04] LABS: Bacteria/HPF 2+ HPF (None Seen)
== END 2022-06-10 14:00 | disposition home or self-care (01) ==
LOC: ERS 10:36
DX: N39.0 Urinary tract infection, site not specified (principal); R53.83 Other fatigue; E78.5 Hyperlipidemia, unspecified; I10 Essential (primary) hypertension; Z79.82 Long term (current) use of aspirin; Z79.899 Other long term (current) drug therapy
CPT/HCPCS: 51701; 70450; 71045; 80053; 81003; 81015; 82550; 84484; 85025; 87086; 93005

== ENCOUNTER 2022-07-07 10:00 | Emergency (ER) | payer MEDICARE, OTHER ==
[2022-07-07 10:41] LABS: #Eosinphils 0.2 thou/uL (0.0-0.7); #Lymphocytes 1.3 thou/uL (1.20-3.40); #Monocytes 0.5 thou/uL (0.11-0.59); #Neutrophils 4.8 thou/uL (1.40-6.50); %Basophils 0.1 % (0.0-1.0); %Eosinophils 2.5 % (0.0-10.0); %Monocytes 7.4 % (0.0-10.0); %Neutrophils 70.9 % (42.0-75.0); Hemoglobin 10.7 g/dL (12.0-16.0); Mean Corpuscular HGB CONC 32.2 g/dL (32.0-36.0); Mean Corpuscular Hemoglobin 30.9 pg (27.0-31.0); Mean Platelet Volume 11.5 fL (7.4-10.4); Platelet Count 150 thou/uL (130-400); Red Blood Cell (RBC) Count 3.47 mill/uL (4.20-5.40); White Blood Cell (WBC) Count 6.8 thou/uL (4.8-10.8)
[2022-07-07 11:14] LABS: ALT (SGPT) 56 U/L (8-55); AST (SGOT) 137 U/L (5-34); Alkaline Phosphatase 78 U/L (40-110); Anion Gap 14 mmol/L (10-20); BUN (Urea Nitrogen) 27 mg/dL (9.8-20.1); Bilirubin, Total 0.3 mg/dL (0.2-1.2); Calc. Creatinine Clearance 0 mL/min (70-130); Calcium 10.1 mg/dL (7.8-10.44); Carbon Dioxide 26 mmol/L (23-31); Chloride 107 mmol/L (98-107); Estimated GFR 43; Globulin 2.5 g/dL (2.4-3.5); Glucose 90 mg/dL (83-110); Potassium 3.8 mmol/L (3.5-5.1); Protein, Total 6.5 g/dL (5.8-8.1); Sodium 143 mmol/L (136-145)
[2022-07-07 16:59] LABS: Bacteria/HPF None Seen HPF (None Seen); Bilirubin Negative (Negative); Blood, Urine 3+ (Negative); Clarity Clear (Clear); Glucose, Urine (Dipstick) Normal (Negative); Ketone, Urine Negative (Negative); Leukocyte Negative Leu/uL (Negative); Nitrite Negative (Negative); Protein, Urine (Dipstick) 30 mg/dL (Neg-Trace); RBC/HPF 0-3 HPF (0-3); Squamous Epithelial 0-3 HPF (0-3); Urobilinogen Normal mg/dL (Less than 2); WBC/HPF 0-3 HPF (0-3)
== END 2022-07-07 17:20 | disposition home or self-care (01) ==
LOC: ERS 10:00
DX: S09.90XA Unspecified injury of head, initial encounter (principal); E78.5 Hyperlipidemia, unspecified; I10 Essential (primary) hypertension; D64.9 Anemia, unspecified; W19.XXXA Unspecified fall, initial encounter
CPT/HCPCS: 70450; 71045; 80053; 81003; 81015; 84484; 85025; 93005

== ENCOUNTER 2022-09-15 01:20 | Inpatient (IN) | payer MEDICARE, OTHER ==
[2022-09-15 01:59] LABS: #Eosinphils 0.2 thou/uL (0.0-0.7); #Lymphocytes 0.8 thou/uL (1.20-3.40); #Monocytes 0.5 thou/uL (0.11-0.59); #Neutrophils 6.1 thou/uL (1.40-6.50); %Basophils 0.3 % (0.0-1.0); %Eosinophils 2.5 % (0.0-10.0); %Neutrophils 79.3 % (42.0-75.0); Hemoglobin 9.7 g/dL (12.0-16.0); Mean Corpuscular HGB CONC 32.6 g/dL (32.0-36.0); Mean Corpuscular Hemoglobin 31.4 pg (27.0-31.0); Mean Corpuscular Volume 96.1 fl (78.0-98.0); Mean Platelet Volume 10.7 fL (7.4-10.4); Platelet Count 170 thou/uL (130-400); RBC Distribution Width 12.3 % (11.5-14.5); Red Blood Cell (RBC) Count 3.09 mill/uL (4.20-5.40); White Blood Cell (WBC) Count 7.7 thou/uL (4.8-10.8)
[2022-09-15] MEDS ORDERED: cefTRIAXone\\ROCEPHIN 1 GM VIAL ONE (02:01)
[2022-09-15 02:38] LABS: ALT (SGPT) 13 U/L (8-55); AST (SGOT) 21 U/L (5-34); Albumin 3.6 g/dL (3.4-4.8); Alkaline Phosphatase 77 U/L (40-110); Anion Gap 12 mmol/L (10-20); BUN (Urea Nitrogen) 34 mg/dL (9.8-20.1); Bilirubin, Total 0.3 mg/dL (0.2-1.2); Calc. Creatinine Clearance 0 mL/min (70-130); Calcium 9.5 mg/dL (7.8-10.44); Carbon Dioxide 21 mmol/L (23-31); Chloride 108 mmol/L (98-107); Estimated GFR 44; Globulin 2.6 g/dL (2.4-3.5); Glucose 101 mg/dL (83-110); Potassium 4.3 mmol/L (3.5-5.1); Protein, Total 6.2 g/dL (5.8-8.1); Sodium 137 mmol/L (136-145)
[2022-09-15] MEDS ORDERED: Azithromycin 500 MG VIAL ONE ×3 (03:04→03:09)
[2022-09-15 03:40] LABS: Bilirubin Negative (Negative); Blood, Urine Negative (Negative); Clarity Clear (Clear); Glucose, Urine (Dipstick) Normal (Negative); Ketone, Urine Negative (Negative); Leukocyte Negative Leu/uL (Negative); Nitrite Negative (Negative); Protein, Urine (Dipstick) 10 mg/dL (Neg-Trace); Specific Gravity, Urine 1.022 (1.002-1.036); Urobilinogen Normal mg/dL (Less than 2); pH, Urine 5.5 (5.0-9.0)
[2022-09-15] MEDS ORDERED: Ondansetron ODT 4 MG TAB PO PRN (05:56)
[2022-09-15] MEDS ORDERED: Acetaminophen 325 MG TAB PO PRN (05:56)
[2022-09-15] MEDS ORDERED: Acetaminophen 650 MG Suppository PR PRN (05:56)
[2022-09-15] MEDS ORDERED: Ondansetron PF 4 MG/2 ML Vial IVP PRN (05:56)
[2022-09-15 08:30] LABS: Phosphorus 2.6 mg/dL (2.3-4.7)
[2022-09-15] MEDS: Enoxaparin Sodium 30 MG/0.3 ML SYRINGE SC SCH (11:01)
[2022-09-15 11:07] VITALS: BMI 21.7
[2022-09-15] MEDS: FLU VACC QS2022-23(65YR UP)/PF 240 MCG/0.7 ML SYRINGE IM ONE ×2 (13:06→13:12)
[2022-09-15] MEDS ORDERED: Doxazosin 2 MG TAB PO SCH (13:45)
[2022-09-15] MEDS ORDERED: Clopidogrel Bisulfate 75 MG TAB PO SCH (13:45)
[2022-09-15] MEDS ORDERED: Aspirin 81 mg Enteric Coated Tablet PO SCH (13:45)
[2022-09-15] MEDS ORDERED: hydrALAZINE 20 MG/ML VIAL SLOW IVP PRN (16:53)
[2022-09-15] MEDS ORDERED: Labetalol HCl 100 MG/20 ML VIAL SLOW IVP PRN (16:53)
[2022-09-15] MEDS: Donepezil HCl 5 MG TAB PO SCH (21:14)
[2022-09-15] MEDS: Atorvastatin Calcium 20 MG TAB PO SCH (21:14)
[2022-09-16 05:15] LABS: #Eosinphils 0.4 thou/uL (0.0-0.7); #Lymphocytes 1.2 thou/uL (1.20-3.40); #Monocytes 0.5 thou/uL (0.11-0.59); #Neutrophils 3.4 thou/uL (1.40-6.50); %Basophils 0.2 % (0.0-1.0); %Eosinophils 7.1 % (0.0-10.0); %Lymphocytes 21.6 % (21.0-51.0); %Monocytes 9.3 % (0.0-10.0); %Neutrophils 61.9 % (42.0-75.0); Hemoglobin 8.9 g/dL (12.0-16.0); Mean Corpuscular HGB CONC 31.8 g/dL (32.0-36.0); Mean Corpuscular Hemoglobin 30.9 pg (27.0-31.0); Mean Corpuscular Volume 97.1 fl (78.0-98.0); Mean Platelet Volume 10.8 fL (7.4-10.4); Platelet Count 156 thou/uL (130-400); RBC Distribution Width 12.4 % (11.5-14.5); Red Blood Cell (RBC) Count 2.87 mill/uL (4.20-5.40); White Blood Cell (WBC) Count 5.4 thou/uL (4.8-10.8)
[2022-09-16 05:34] LABS: Anion Gap 9 mmol/L (10-20); BUN (Urea Nitrogen) 24 mg/dL (9.8-20.1); Calc. Creatinine Clearance 37 mL/min (70-130); Calcium 8.5 mg/dL (7.8-10.44); Carbon Dioxide 24 mmol/L (23-31); Chloride 109 mmol/L (98-107); Estimated GFR 68; Glucose 89 mg/dL (83-110); Sodium 138 mmol/L (136-145)
[2022-09-16] MEDS: Enoxaparin Sodium 30 MG/0.3 ML SYRINGE SC SCH (09:32)
[2022-09-16] MEDS: Doxazosin 2 MG TAB PO SCH (09:33)
[2022-09-16] MEDS: Clopidogrel Bisulfate 75 MG TAB PO SCH (09:33)
[2022-09-16] MEDS: Aspirin 81 mg Enteric Coated Tablet PO SCH (09:33)
[2022-09-16] MEDS: Atorvastatin Calcium 20 MG TAB PO SCH (21:29)
[2022-09-16] MEDS: Donepezil HCl 5 MG TAB PO SCH (21:29)
[2022-09-17] MEDS: Doxazosin 2 MG TAB PO SCH (09:18)
[2022-09-17] MEDS: Aspirin 81 mg Enteric Coated Tablet PO SCH (09:18)
[2022-09-17] MEDS: Enoxaparin Sodium 40 MG/0.4 ML SYRINGE SC SCH (09:19)
[2022-09-17] MEDS: Clopidogrel Bisulfate 75 MG TAB PO SCH (09:19)
[2022-09-17] MEDS: Diltiazem HCl SR 60 mg Capsule PO SCH (10:40)
[2022-09-17] MEDS: Atorvastatin Calcium 20 MG TAB PO SCH (20:51)
[2022-09-17] MEDS: Lisinopril 10 MG TAB PO SCH (20:51)
[2022-09-17] MEDS: Donepezil HCl 5 MG TAB PO SCH (20:51)
[2022-09-18] MEDS: Diltiazem HCl SR 60 mg Capsule PO SCH (09:51)
[2022-09-18] MEDS: Aspirin 81 mg Enteric Coated Tablet PO SCH (09:51)
[2022-09-18] MEDS: Clopidogrel Bisulfate 75 MG TAB PO SCH (09:51)
[2022-09-18] MEDS: Enoxaparin Sodium 40 MG/0.4 ML SYRINGE SC SCH (09:51)
[2022-09-18] MEDS: Doxazosin 2 MG TAB PO SCH (09:54)
[2022-09-18] MEDS: Atorvastatin Calcium 20 MG TAB PO SCH (21:10)
[2022-09-18] MEDS: Lisinopril 10 MG TAB PO SCH (21:10)
[2022-09-18] MEDS: Donepezil HCl 5 MG TAB PO SCH (21:10)
[2022-09-19 05:43] LABS: #Eosinphils 0.3 thou/uL (0.0-0.7); #Lymphocytes 1.2 thou/uL (1.20-3.40); #Monocytes 0.5 thou/uL (0.11-0.59); #Neutrophils 3.8 thou/uL (1.40-6.50); %Basophils 0.4 % (0.0-1.0); %Eosinophils 5.2 % (0.0-10.0); %Monocytes 9.1 % (0.0-10.0); %Neutrophils 65.4 % (42.0-75.0); Hemoglobin 9.7 g/dL (12.0-16.0); Mean Corpuscular HGB CONC 32.7 g/dL (32.0-36.0); Mean Corpuscular Hemoglobin 31.7 pg (27.0-31.0); Mean Corpuscular Volume 96.8 fl (78.0-98.0); Mean Platelet Volume 10.1 fL (7.4-10.4); Platelet Count 196 thou/uL (130-400); RBC Distribution Width 12.1 % (11.5-14.5); Red Blood Cell (RBC) Count 3.05 mill/uL (4.20-5.40); White Blood Cell (WBC) Count 5.9 thou/uL (4.8-10.8)
[2022-09-19 05:57] LABS: Anion Gap 12 mmol/L (10-20); BUN (Urea Nitrogen) 25 mg/dL (9.8-20.1); Calc. Creatinine Clearance 32 mL/min (70-130); Calcium 9.7 mg/dL (7.8-10.44); Carbon Dioxide 26 mmol/L (23-31); Chloride 108 mmol/L (98-107); Estimated GFR 56; Glucose 80 mg/dL (83-110); Potassium 3.8 mmol/L (3.5-5.1); Sodium 142 mmol/L (136-145)
[2022-09-19] MEDS: Aspirin 81 mg Enteric Coated Tablet PO SCH (08:45)
[2022-09-19] MEDS: Doxazosin 2 MG TAB PO SCH (08:45)
[2022-09-19] MEDS: Enoxaparin Sodium 40 MG/0.4 ML SYRINGE SC SCH (08:45)
[2022-09-19] MEDS: Clopidogrel Bisulfate 75 MG TAB PO SCH (08:46)
[2022-09-19] MEDS: Diltiazem HCl SR 60 mg Capsule PO SCH (08:46)
[2022-09-19] MEDS: Lisinopril 10 MG TAB PO SCH (20:37)
[2022-09-19] MEDS: Atorvastatin Calcium 20 MG TAB PO SCH (20:37)
[2022-09-19] MEDS: Donepezil HCl 5 MG TAB PO SCH (20:37)
[2022-09-20] MEDS ORDERED: Electrolyte Replacement Protocol FS SCH (01:15)
[2022-09-20 05:45] LABS: Anion Gap 12 mmol/L (10-20); BUN (Urea Nitrogen) 34 mg/dL (9.8-20.1); Calc. Creatinine Clearance 30 mL/min (70-130); Calcium 9.9 mg/dL (7.8-10.44); Carbon Dioxide 24 mmol/L (23-31); Chloride 105 mmol/L (98-107); Estimated GFR 52; Glucose 89 mg/dL (83-110); Magnesium 1.9 mg/dL (1.6-2.6); Potassium 3.8 mmol/L (3.5-5.1); Sodium 137 mmol/L (136-145)
[2022-09-20] MEDS: Doxazosin 2 MG TAB PO SCH (08:08)
[2022-09-20] MEDS: Aspirin 81 mg Enteric Coated Tablet PO SCH (08:08)
[2022-09-20] MEDS: Clopidogrel Bisulfate 75 MG TAB PO SCH (08:09)
[2022-09-20] MEDS: Diltiazem HCl SR 60 mg Capsule PO SCH (08:09)
[2022-09-20] MEDS ORDERED: Enoxaparin Sodium 30 MG/0.3 ML SYRINGE SC SCH (09:00)
[2022-09-20 12:28] VITALS: TEMP 97.2
[2022-09-20 12:32] VITALS: BP 130/53
[2022-09-20 12:44] LABS: Bacteria/HPF 4+ HPF (None Seen); Bilirubin Negative (Negative); Blood, Urine Negative (Negative); Clarity Turbid (Clear); Glucose, Urine (Dipstick) Normal (Negative); Ketone, Urine Trace mg/dL (Negative); Leukocyte 500 Leu/uL (Negative); Nitrite Negative (Negative); Protein, Urine (Dipstick) 10 mg/dL (Neg-Trace); RBC/HPF 0-3 HPF (0-3); Specific Gravity, Urine 1.017 (1.002-1.036); Urobilinogen Normal mg/dL (Less than 2); pH, Urine 6.5 (5.0-9.0)
[2022-09-20 12:55] LABS: Urine Culture Reflex No No
== END 2022-09-20 14:45 | disposition home health service (06) | DRG 884 ==
LOC: SUATTDRO 01:20 → ERS 01:20 → NEURO 07:48 → OBSVTOIN 15:53
PROVIDERS: ADMIT Student in an Organized Health Care Education/Training Program; ATTEND Student in an Organized Health Care Education/Training Program
DX: R54 Age-related physical debility (principal); N17.9 Acute kidney failure, unspecified; F03.90 Unspecified dementia, unspecified severity, without behavioral disturbance, psychotic disturbance, mood disturbance, and anxiety; Z20.822 Contact with and (suspected) exposure to COVID-19; E78.5 Hyperlipidemia, unspecified; I10 Essential (primary) hypertension; M19.90 Unspecified osteoarthritis, unspecified site; R29.6 Repeated falls; M79.672 Pain in left foot; M06.9 Rheumatoid arthritis, unspecified; Z28.21 Immunization not carried out because of patient refusal; Z86.73 Personal history of transient ischemic attack (TIA), and cerebral infarction without residual deficits; Z79.899 Other long term (current) drug therapy; Z79.82 Long term (current) use of aspirin; Z79.02 Long term (current) use of antithrombotics/antiplatelets; Z95.2 Presence of prosthetic heart valve; Z91.81 History of falling
CPT/HCPCS: 36415; 70450; 71045; 80048; 80053; 81001; 81003; 83605; 83735; 83880; 84100; 84484; 85025; 87040; 87086; 90471; 90662; 93005; 94760; 96365; 96366; 96368; 96372; G0008; G0378; J0360; J0456; J0696; J1650; U0003; U0005

== ENCOUNTER 2022-09-21 10:25 | Inpatient (IN) | payer MEDICARE, OTHER ==
[2022-09-21 11:08] LABS: #Eosinphils 0.1 thou/uL (0.0-0.7); #Lymphocytes 0.8 thou/uL (1.20-3.40); #Monocytes 0.5 thou/uL (0.11-0.59); %Basophils 0.2 % (0.0-1.0); %Eosinophils 1.8 % (0.0-10.0); %Lymphocytes 12.3 % (21.0-51.0); %Monocytes 8.1 % (0.0-10.0); %Neutrophils 77.5 % (42.0-75.0); Hemoglobin 9.5 g/dL (12.0-16.0); Mean Corpuscular Volume 96.9 fl (78.0-98.0); Mean Platelet Volume 10.5 fL (7.4-10.4); Platelet Count 197 thou/uL (130-400); RBC Distribution Width 12.2 % (11.5-14.5); Red Blood Cell (RBC) Count 3.07 mill/uL (4.20-5.40); White Blood Cell (WBC) Count 6.5 thou/uL (4.8-10.8)
[2022-09-21 11:47] LABS: ALT (SGPT) 12 U/L (8-55); AST (SGOT) 17 U/L (5-34); Albumin 3.6 g/dL (3.4-4.8); Alkaline Phosphatase 77 U/L (40-110); Anion Gap 15 mmol/L (10-20); BUN (Urea Nitrogen) 35 mg/dL (9.8-20.1); Bilirubin, Total 0.3 mg/dL (0.2-1.2); Calc. Creatinine Clearance 0 mL/min (70-130); Calcium 9.6 mg/dL (7.8-10.44); Carbon Dioxide 21 mmol/L (23-31); Chloride 106 mmol/L (98-107); Estimated GFR 41; Globulin 2.6 g/dL (2.4-3.5); Glucose 110 mg/dL (83-110); Magnesium 1.9 mg/dL (1.6-2.6); Potassium 3.5 mmol/L (3.5-5.1); Protein, Total 6.2 g/dL (5.8-8.1); Sodium 138 mmol/L (136-145)
[2022-09-21] MEDS ORDERED: Ondansetron ODT 4 MG TAB PO PRN (14:06)
[2022-09-21] MEDS ORDERED: Ondansetron PF 4 MG/2 ML Vial IVP PRN (14:06)
[2022-09-21 14:44] LABS: Hemoglobin A1c 5.2 % (4.0-6.0)
[2022-09-21 14:55] LABS: Troponin I 0.013 ng/mL (< 0.028)
[2022-09-21 15:35] LABS: Bilirubin Negative (Negative); Blood, Urine 2+ (Negative); Clarity Turbid (Clear); Glucose, Urine (Dipstick) Normal (Negative); Ketone, Urine Trace mg/dL (Negative); Leukocyte 250 Leu/uL (Negative); Nitrite Negative (Negative); Protein, Urine (Dipstick) 20 mg/dL (Neg-Trace); RBC/HPF 0-3 HPF (0-3); Specific Gravity, Urine 1.021 (1.002-1.036); Squamous Epithelial 0-3 HPF (0-3); Urobilinogen Normal mg/dL (Less than 2); pH, Urine 5.5 (5.0-9.0)
[2022-09-21 15:36] LABS: Bacteria/HPF 1+ HPF (None Seen)
[2022-09-21 17:14] LABS: Troponin I Less than 0.010 ng/mL (< 0.028)
[2022-09-21] MEDS ORDERED: FLU VACC QS2022-23(65YR UP)/PF 240 MCG/0.7 ML SYRINGE IM ONE (17:15)
[2022-09-21] MEDS: Sodium Chloride 0.9% 1,000 ML IV SCH (18:30)
[2022-09-21] MEDS: cefTRIAXone\\ROCEPHIN 1 GM in Sodium Chloride 0.9% 100 ML IVPB SCH (18:45)
[2022-09-22 04:18] LABS: #Eosinphils 0.3 thou/uL (0.0-0.7); #Lymphocytes 1.4 thou/uL (1.20-3.40); #Monocytes 0.5 thou/uL (0.11-0.59); %Basophils 0.1 % (0.0-1.0); %Eosinophils 5.1 % (0.0-10.0); %Lymphocytes 27.7 % (21.0-51.0); %Monocytes 9.3 % (0.0-10.0); %Neutrophils 57.7 % (42.0-75.0); Hemoglobin 8.9 g/dL (12.0-16.0); Mean Corpuscular HGB CONC 33.4 g/dL (32.0-36.0); Mean Corpuscular Hemoglobin 32.3 pg (27.0-31.0); Mean Corpuscular Volume 96.7 fl (78.0-98.0); Mean Platelet Volume 10.7 fL (7.4-10.4); Platelet Count 193 thou/uL (130-400); RBC Distribution Width 12.1 % (11.5-14.5); Red Blood Cell (RBC) Count 2.77 mill/uL (4.20-5.40); White Blood Cell (WBC) Count 5.2 thou/uL (4.8-10.8)
[2022-09-22 04:31] LABS: Anion Gap 10 mmol/L (10-20); BUN (Urea Nitrogen) 24 mg/dL (9.8-20.1); Calc. Creatinine Clearance 34 mL/min (70-130); Calcium 9.1 mg/dL (7.8-10.44); Carbon Dioxide 25 mmol/L (23-31); Chloride 110 mmol/L (98-107); Estimated GFR 62; Glucose 92 mg/dL (83-110); Potassium 3.8 mmol/L (3.5-5.1); Sodium 141 mmol/L (136-145)
[2022-09-22] MEDS: Sodium Chloride 0.9% 1,000 ML IV SCH ×2 (05:07→18:42)
[2022-09-22 12:00] VITALS: BMI 20.5
[2022-09-22] MEDS: cefTRIAXone\\ROCEPHIN 1 GM in Sodium Chloride 0.9% 100 ML IVPB SCH (18:42)
[2022-09-22] MEDS: Donepezil HCl 5 MG TAB PO SCH (20:31)
[2022-09-22] MEDS: Lisinopril 10 MG TAB PO SCH (20:31)
[2022-09-22] MEDS: Atorvastatin Calcium 20 MG TAB PO SCH (20:31)
[2022-09-22] MEDS ORDERED: Alendronate Sodium 70 mg Tablet PO SCH (21:00)
[2022-09-23 04:40] LABS: #Eosinphils 0.4 thou/uL (0.0-0.7); #Lymphocytes 1.5 thou/uL (1.20-3.40); #Monocytes 0.5 thou/uL (0.11-0.59); #Neutrophils 3.3 thou/uL (1.40-6.50); %Basophils 0.6 % (0.0-1.0); %Eosinophils 7.4 % (0.0-10.0); %Lymphocytes 26.6 % (21.0-51.0); %Monocytes 8.4 % (0.0-10.0); Hemoglobin 8.8 g/dL (12.0-16.0); Mean Corpuscular HGB CONC 32.7 g/dL (32.0-36.0); Mean Corpuscular Volume 97.7 fl (78.0-98.0); Mean Platelet Volume 11.1 fL (7.4-10.4); Platelet Count 194 thou/uL (130-400); RBC Distribution Width 12.3 % (11.5-14.5); Red Blood Cell (RBC) Count 2.74 mill/uL (4.20-5.40); White Blood Cell (WBC) Count 5.8 thou/uL (4.8-10.8)
[2022-09-23 04:44] LABS: Anion Gap 9 mmol/L (10-20); BUN (Urea Nitrogen) 20 mg/dL (9.8-20.1); Calc. Creatinine Clearance 37 mL/min (70-130); Calcium 8.8 mg/dL (7.8-10.44); Carbon Dioxide 24 mmol/L (23-31); Chloride 111 mmol/L (98-107); Estimated GFR 72; Glucose 86 mg/dL (83-110); Potassium 3.6 mmol/L (3.5-5.1); Sodium 140 mmol/L (136-145)
[2022-09-23] MEDS ORDERED: Lisinopril 10 MG TAB PO SCH (06:15)
[2022-09-23] MEDS: Aspirin 81 mg Enteric Coated Tablet PO SCH (09:43)
[2022-09-23] MEDS: AMPicillin 1 GM in Sodium Chloride 0.9% 100 ML IVPB SCH ×2 (13:55→20:16)
[2022-09-23] MEDS: Lisinopril 10 MG TAB PO SCH (20:16)
[2022-09-23] MEDS: Atorvastatin Calcium 20 MG TAB PO SCH (20:16)
[2022-09-23] MEDS: Donepezil HCl 5 MG TAB PO SCH (20:16)
[2022-09-24] MEDS: AMPicillin 1 GM in Sodium Chloride 0.9% 100 ML IVPB SCH ×3 (04:02→20:31)
[2022-09-24 04:40] LABS: #Basophils 0.1 thou/uL (0.0-0.2); #Eosinphils 0.3 thou/uL (0.0-0.7); #Lymphocytes 1.8 thou/uL (1.20-3.40); #Monocytes 0.5 thou/uL (0.11-0.59); #Neutrophils 3.2 thou/uL (1.40-6.50); %Eosinophils 5.5 % (0.0-10.0); %Lymphocytes 30.4 % (21.0-51.0); %Monocytes 8.1 % (0.0-10.0); %Neutrophils 55.1 % (42.0-75.0); Hemoglobin 9.1 g/dL (12.0-16.0); Mean Corpuscular HGB CONC 31.5 g/dL (32.0-36.0); Mean Corpuscular Volume 98.3 fl (78.0-98.0); Mean Platelet Volume 10.3 fL (7.4-10.4); Platelet Count 204 thou/uL (130-400); RBC Distribution Width 12.3 % (11.5-14.5); Red Blood Cell (RBC) Count 2.92 mill/uL (4.20-5.40); White Blood Cell (WBC) Count 5.8 thou/uL (4.8-10.8)
[2022-09-24 04:57] LABS: Anion Gap 10 mmol/L (10-20); BUN (Urea Nitrogen) 18 mg/dL (9.8-20.1); Calc. Creatinine Clearance 36 mL/min (70-130); Calcium 9.3 mg/dL (7.8-10.44); Carbon Dioxide 23 mmol/L (23-31); Chloride 111 mmol/L (98-107); Estimated GFR 71; Glucose 86 mg/dL (83-110); Potassium 3.8 mmol/L (3.5-5.1); Sodium 140 mmol/L (136-145)
[2022-09-24] MEDS: Sodium Chloride 0.9% 1,000 ML IV SCH (09:21)
[2022-09-24] MEDS: Aspirin 81 mg Enteric Coated Tablet PO SCH (09:22)
[2022-09-24] MEDS: Lisinopril 10 MG TAB PO SCH (17:50)
[2022-09-24] MEDS: Atorvastatin Calcium 20 MG TAB PO SCH (20:31)
[2022-09-24] MEDS: Donepezil HCl 5 MG TAB PO SCH (20:31)
[2022-09-25] MEDS: Sodium Chloride 0.9% 1,000 ML IV SCH ×4 (03:31→14:29)
[2022-09-25] MEDS: AMPicillin 1 GM in Sodium Chloride 0.9% 100 ML IVPB SCH ×3 (03:32→20:36)
[2022-09-25 04:42] LABS: #Eosinphils 0.4 thou/uL (0.0-0.7); #Lymphocytes 1.6 thou/uL (1.20-3.40); #Monocytes 0.5 thou/uL (0.11-0.59); %Basophils 0.5 % (0.0-1.0); %Eosinophils 5.5 % (0.0-10.0); %Lymphocytes 24.6 % (21.0-51.0); %Monocytes 7.1 % (0.0-10.0); %Neutrophils 62.2 % (42.0-75.0); Hemoglobin 8.9 g/dL (12.0-16.0); Mean Corpuscular HGB CONC 32.1 g/dL (32.0-36.0); Mean Corpuscular Hemoglobin 30.9 pg (27.0-31.0); Mean Corpuscular Volume 96.4 fl (78.0-98.0); Mean Platelet Volume 10.8 fL (7.4-10.4); Platelet Count 200 thou/uL (130-400); RBC Distribution Width 12.4 % (11.5-14.5); Red Blood Cell (RBC) Count 2.88 mill/uL (4.20-5.40); White Blood Cell (WBC) Count 6.4 thou/uL (4.8-10.8)
[2022-09-25 05:02] LABS: Anion Gap 10 mmol/L (10-20); BUN (Urea Nitrogen) 17 mg/dL (9.8-20.1); Calc. Creatinine Clearance 36 mL/min (70-130); Calcium 9.2 mg/dL (7.8-10.44); Carbon Dioxide 24 mmol/L (23-31); Chloride 108 mmol/L (98-107); Estimated GFR 71; Glucose 86 mg/dL (83-110); Magnesium 1.8 mg/dL (1.6-2.6); Potassium 3.5 mmol/L (3.5-5.1); Sodium 138 mmol/L (136-145)
[2022-09-25] MEDS: Aspirin 81 mg Enteric Coated Tablet PO SCH (10:01)
[2022-09-25] MEDS: Donepezil HCl 5 MG TAB PO SCH (20:36)
[2022-09-25] MEDS: Lisinopril 10 MG TAB PO SCH (20:36)
[2022-09-25] MEDS: Atorvastatin Calcium 20 MG TAB PO SCH (20:36)
[2022-09-26] MEDS: Sodium Chloride 0.9% 1,000 ML IV SCH ×3 (03:50→22:26)
[2022-09-26 03:58] LABS: #Eosinphils 0.3 thou/uL (0.0-0.7); #Lymphocytes 1.7 thou/uL (1.20-3.40); #Monocytes 0.6 thou/uL (0.11-0.59); %Basophils 0.4 % (0.0-1.0); %Eosinophils 4.1 % (0.0-10.0); %Lymphocytes 25.5 % (21.0-51.0); %Monocytes 9.2 % (0.0-10.0); %Neutrophils 60.7 % (42.0-75.0); Hemoglobin 9.1 g/dL (12.0-16.0); Mean Corpuscular HGB CONC 32.2 g/dL (32.0-36.0); Mean Corpuscular Hemoglobin 31.1 pg (27.0-31.0); Mean Corpuscular Volume 96.6 fl (78.0-98.0); Mean Platelet Volume 10.6 fL (7.4-10.4); Platelet Count 194 thou/uL (130-400); RBC Distribution Width 12.5 % (11.5-14.5); Red Blood Cell (RBC) Count 2.92 mill/uL (4.20-5.40); White Blood Cell (WBC) Count 6.6 thou/uL (4.8-10.8)
[2022-09-26] MEDS: AMPicillin 1 GM in Sodium Chloride 0.9% 100 ML IVPB SCH ×3 (04:00→19:39)
[2022-09-26 04:17] LABS: Anion Gap 10 mmol/L (10-20); BUN (Urea Nitrogen) 17 mg/dL (9.8-20.1); Calc. Creatinine Clearance 33 mL/min (70-130); Calcium 9.5 mg/dL (7.8-10.44); Carbon Dioxide 27 mmol/L (23-31); Chloride 108 mmol/L (98-107); Estimated GFR 62; Glucose 94 mg/dL (83-110); Potassium 3.9 mmol/L (3.5-5.1); Sodium 141 mmol/L (136-145)
[2022-09-26] MEDS: Aspirin 81 mg Enteric Coated Tablet PO SCH (09:29)
[2022-09-26] MEDS: Lisinopril 10 MG TAB PO SCH (17:39)
[2022-09-26] MEDS: Atorvastatin Calcium 20 MG TAB PO SCH (20:24)
[2022-09-26] MEDS: Donepezil HCl 5 MG TAB PO SCH (20:24)
[2022-09-27] MEDS: AMPicillin 1 GM in Sodium Chloride 0.9% 100 ML IVPB SCH ×2 (03:11→11:49)
[2022-09-27] MEDS: Aspirin 81 mg Enteric Coated Tablet PO SCH (09:31)
[2022-09-27] MEDS: Lisinopril 10 MG TAB PO SCH (09:32)
[2022-09-28 02:37] VITALS: BP 176/70; TEMP 98
== END 2022-09-27 15:00 | DRG 312 ==
LOC: ERS 10:25 → 2NO 16:01 → OBSVTOIN 09-22 18:02
PROVIDERS: ADMIT Internal Medicine; ATTEND Hospitalist
DX: I95.1 Orthostatic hypotension (principal); N17.9 Acute kidney failure, unspecified; F03.B4 Unspecified dementia, moderate, with anxiety; N30.00 Acute cystitis without hematuria; E78.5 Hyperlipidemia, unspecified; M19.90 Unspecified osteoarthritis, unspecified site; H91.90 Unspecified hearing loss, unspecified ear; Z66 Do not resuscitate; M06.9 Rheumatoid arthritis, unspecified; Z20.822 Contact with and (suspected) exposure to COVID-19; Z86.73 Personal history of transient ischemic attack (TIA), and cerebral infarction without residual deficits; Z95.2 Presence of prosthetic heart valve; I10 Essential (primary) hypertension; R29.6 Repeated falls; Z79.82 Long term (current) use of aspirin; Z79.899 Other long term (current) drug therapy; M81.0 Age-related osteoporosis without current pathological fracture; R19.7 Diarrhea, unspecified; I35.0 Nonrheumatic aortic (valve) stenosis; B95.2 Enterococcus as the cause of diseases classified elsewhere; R01.1 Cardiac murmur, unspecified
CPT/HCPCS: 36415; 36416; 71045; 80048; 80053; 81003; 81015; 83036; 83735; 84484; 85025; 87077; 87086; 87186; 93005; 96374; G0378; J0290; J0696; J3490; J7050; U0003; U0005

== ENCOUNTER 2022-11-30 22:09 | Emergency (ER) | payer MEDICARE, OTHER | END 2022-12-01 00:19 | LOC: ERS 22:09 | DX: S50.311A Abrasion of right elbow, initial encounter (principal); S39.012A Strain of muscle, fascia and tendon of lower back, initial encounter; E11.9 Type 2 diabetes mellitus without complications; I10 Essential (primary) hypertension; W19.XXXA Unspecified fall, initial encounter; Z79.82 Long term (current) use of aspirin; Z79.899 Other long term (current) drug therapy | CPT/HCPCS: 70450; 72100; 72125; 93005 ==